=== PATIENT | male | born 1935 | race Caucasian/White ===

== ENCOUNTER 2016-11-12 13:22 | Observation (INO) | payer MEDICARE, OTHER ==
[2016-11-12] MEDS ORDERED: Prochlorperazine 10 MG in Sodium Chloride 0.9% 50 ML IV ONE (13:58)
[2016-11-12] MEDS ORDERED: Sodium Chloride 0.9% 10 ML Syringe FLUSH PRN (13:58)
[2016-11-12] MEDS ORDERED: Sodium Chloride 0.9% 1,000 ML IV SCH ×3 (14:00→17:00)
[2016-11-12] MEDS: Sodium Chloride 0.9% 1,000 ML IV SCH (17:20)
[2016-11-12] MEDS ORDERED: Ondansetron 4 MG/2 ML SDV IV PRN (17:28)
[2016-11-12] MEDS ORDERED: Zolpidem 5 MG Tab PO PRN (17:32)
[2016-11-12] MEDS ORDERED: Diclofenac Sodium 1% Gel 100 GM Tube TOP PRN (17:32)
[2016-11-12] MEDS ORDERED: Acetaminophen 325 MG Tab PO PRN (17:32)
[2016-11-12] MEDS ORDERED: Fluticasone Propionate Nasal Spray 16 GM Bottle NASBOTH PRN (17:32)
[2016-11-12] MEDS ORDERED: Albuterol 8 GM Inhaler INH PRN (17:32)
[2016-11-12] MEDS: Gabapentin 100 MG Cap PO SCH (21:02)
[2016-11-12] MEDS: Montelukast 10 MG Tab PO SCH (21:02)
[2016-11-12] MEDS: atorvaSTATin 20 MG Tab PO SCH (21:08)
[2016-11-12] MEDS: Ipratropium 0.03% Nasal Spray 30 ML Bot NASBOTH SCH (21:08)
[2016-11-13] MEDS: Sodium Chloride 0.9% 1,000 ML IV SCH ×3 (01:25→23:31)
[2016-11-13] MEDS ORDERED: CHERRY PO SCH (09:00)
--- NOTE | 2016-11-13 09:33 | PCM.HP ---
H&P History of Present Illness - General Date of Service: 11/12/16 Admit Problem/Dx: Admission Diagnosis/Problem Admission Diagnosis/Problem Weakness Source of Information: Patient History Limitations: Reports: No Limitations - History of Present Illness Initial Comments - Free Text/Narative: This is an 81-year-old male patient from the [facility] this had 1 day history of dizziness, weakness, nausea and dry heaves. He states he was at home. He lives by himself and he was not able to walk. The ambulance was called and he was brought to the ER. Had a head CT that showed no acute changes. Creatinine was elevated with that's normal for him. Patient denies fevers, chills, nasal congestion, cough, chest pain, abdominal pain. He had a normal bowel movement with little diarrhea at the end. No blood. No dysuria, pyuria or hematuria. left knee Pain Score (Numeric/FACES): 3 - Related Data Allergies/Adverse Reactions: Allergies Allergy/AdvReac Type Severity Reaction Status Date / Time allopurinol Allergy Other Verified 11/12/16 13:42 gabapentin Allergy Itching Verified 02/29/16 23:00 tramadol Allergy Dizziness Verified 02/29/16 23:00 valsartan Allergy Dizziness Verified 11/12/16 13:42 Home Medications: Home Meds Albuterol Sulfate [Proventil Hfa] 2 puff IH Q6H PRN 02/29/16 [History] Diclofenac Sodium [Voltaren 1%] 1 applic TOP BID PRN 02/29/16 [History] Finasteride [Proscar] 5 mg PO DAILY 02/29/16 [History] Fluticasone Propionate [Flonase] 2 sprays NASBOTH DAILY PRN 02/29/16 [History] Ipratropium [Atrovent 0.03% Nasal [place]] 2 sprays NASBOTH TID 02/29/16 [History] Losartan [Cozaar] 25 mg PO DAILY 02/29/16 [History] Montelukast [Singulair] 10 mg PO BEDTIME 02/29/16 [History] Zolpidem [Ambien] 5 mg PO BEDTIME PRN 02/29/16 [History] glipiZIDE [Glucotrol] 2.5 mg PO ACBREAKFAST 12/27/16 [History] Acetaminophen [Tylenol] 650 mg PO Q6H PRN 03/01/16 [History] Aspirin [Ecotrin] 81 mg PO DAILY 03/01/16 [History] Balderas Concentrate Capsule 1 cap PO DAILY 03/01/16 [History] Furosemide [Lasix] 20 mg PO WITHDINNER 03/01/16 [History] Gabapentin [Neurontin] 100 mg PO BID 03/01/16 [History] atorvaSTATin [Lipitor] 20 mg PO BEDTIME 03/01/16 [History] Febuxostat [Uloric] 40 mg PO DAILY 11/12/16 [History] Past Medical History HEENT History: Reports: Allergic Rhinitis, Hard of Hearing, Sinusitis Cardiovascular History: Reports: High Cholesterol, Hypertension Genitourinary History: Reports: Chronic Renal Insuffiency Musculoskeletal History: Reports: Arthritis, Gout Neurological History: Reports: Neuropathy, Peripheral Endocrine/Metabolic History: Reports: Diabetes, Type II, Hyperthyroidism, Obesity/BMI 30+ Hematologic History: Reports: None Oncologic (Cancer) History: Reports: Other (See Below) Other Oncologic History: melanoma Dermatologic History: Reports: Other (See Below) Other Dermatologic History: skin caner - Past Surgical History GI Surgical History: Reports: Cholecystectomy Musculoskeletal Surgical History: Reports: None Dermatological Surgical History: Reports: Skin Graft Social & Family History - Family History Family Medical History: Unobtainable Psychiatric: Reports: None Hematologic: Reports: None - Tobacco Use Smoking Status *Q: Never Smoker Second Hand Smoke Exposure: No - Caffeine Use Caffeine Use: Reports: Coffee Other Caffeine Use: 2 cups of coffee a day - Recreational Drug Use Recreational Drug Use: No - Living Situation & Occupation Living situation: Reports: Single, Alone Occupation: Retired H&P Review of Systems - Review of Systems: Review Of Systems: See Below General: Reports: Weakness, Decreased Appetite HEENT: Reports: No Symptoms Pulmonary: Reports: No Symptoms Cardiovascular: Reports: No Symptoms Gastrointestinal: Reports: Other (Dry heaves) Genitourinary: Reports: No Symptoms Musculoskeletal: Reports: Other (Generalized weakness) Skin: Reports: No Symptoms Psychiatric: Reports: No Symptoms Neurological: Reports: No Symptoms Hematologic/Lymphatic: Reports: No Symptoms Immunologic: Reports: No Symptoms Exam - Exam Exam: See Below - Vital Signs Vital Signs: Last Vital Signs Temp 98.1 F 11/13/16 01:00 Pulse 72 11/13/16 01:00 Resp 17 11/13/16 01:00 BP 145/72 H 11/13/16 01:00 Pulse Ox 94 L 11/13/16 01:00 Weight: 183 lb 12.8 oz - Exam General: Alert, Oriented, Cooperative HEENT: Hearing Intact, Mucosa Moist & [place], TMs Clear Neck: Supple, Trachea Midline Lungs: Clear to Auscultation, Normal Respiratory Effort. No: Crackles, Rales, Rhonchi Cardiovascular: Regular Rate, Regular Rhythm, Normal S1, Normal S2 GI/Abdominal Exam: Normal Bowel Sounds, Soft, Non-Tender, No Organomegaly, No Distention, No Abnormal Bruit, No Mass, Pelvis Stable Back Exam: Normal Inspection, Full Range of Motion, NT Extremities: Normal Inspection, Non-Tender, No Pedal Edema, Other (Bilateral strength normal. Upper and lower extremities.) Skin: Warm, Dry, Intact Neurological: Normal Speech, Normal Tone Neuro Extensive - Mental Status: Alert, Oriented x3 Neuro Extensive - Motor, Sensory, Reflexes: Other (Gait not tested.) Psychiatric: Alert - Patient Data Lab Results Last 24 hrs: Laboratory Results - last 24 hr 11/12/16 11/13/16 11/13/16 Range/Units 17:11 06:25 06:25 WBC 14.2 H (4.5-12.0) X10-3/uL RBC 4.16 L (4.30-5.75) x10(6)uL Hgb 13.3 (11.5-15.5) g/dL Hct 39.3 (30.0-51.3) % MCV 94.5 (80-96) fL MCH 32.0 (27.7-33.6) pg MCHC 33.9 (32.2-35.4) g/dL RDW 12.9 (11.5-15.5) % Plt Count 184 (125-369) X10(3)uL MPV 8.5 (7.4-10.4) fL Neut % (Auto) 58.7 (46-82) % Lymph % (Auto) 27.7 (13-37) % [place] % (Auto) 11.3 (4-12) % Eos % (Auto) 2 (1.0-5.0) % Baso % (Auto) 0 (0-2) % Neut # (Auto) 8.3 (1.6-8.3) # Lymph # (Auto) 3.9 (0.6-5.0) # [place] # (Auto) 1.6 H (0.0-1.3) # Eos # (Auto) 0.3 (0.0-0.8) # Baso # (Auto) 0.1 (0.0-0.2) # Sodium 146 H (135-145) mmol/L Potassium 4.1 (3.5-5.3) mmol/L Chloride 115 H D (100-110) mmol/L Carbon Dioxide 23 (23-29) mmol/L BUN 46 H D (8-23) mg/dL Creatinine 1.9 H (0.6-1.3) mg/dL Est Cr Clr Drug Dosing 25.96 mL/min Estimated GFR (MDRD) 34 L (>60) BUN/Creatinine Ratio 24.2 H (9-20) Glucose 100 (80-116) mg/dL Calcium 8.9 (8.6-10.2) mg/dL Total Bilirubin 1.1 (0.1-1.3) mg/dL AST 23 D (5-27) IU/L ALT 26 D (14-26) IU/L Alkaline Phosphatase 55 L (56-112) IU/L Troponin I (0.02-0.06) NG/ML Total Protein 5.9 L (6.0-8.0) g/dL Albumin 3.2 (3.2-4.6) g/dL Globulin 2.7 g/dL Albumin/Globulin Ratio 1.2 Urine Color Yellow (YELLOW) Urine Appearance Clear (CLEAR) Urine pH 5.0 (5.0-6.5) Ur Specific [place] 1.020 (1.010-1.025) Urine Protein Negative (NEGATIVE) mg/dL Urine Glucose (UA) 250 H (NEGATIVE) mg/dL Urine Ketones Negative (NEGATIVE) mg/dL Urine Occult Blood Negative (NEGATIVE) Urine Nitrite Negative (NEGATIVE) Urine Bilirubin Negative (NEGATIVE) Urine Urobilinogen Normal (NEGATIVE) mg/dL Ur Leukocyte Esterase Negative (NEGATIVE) Urine RBC 0-5 (0) Urine WBC 0-5 (0) Ur Squamous Epith Cells Rare (NS,R,O) Urine Bacteria Few H (NS) 11/13/16 Range/Units 06:25 WBC (4.5-12.0) X10-3/uL RBC (4.30-5.75) x10(6)uL Hgb (11.5-15.5) g/dL Hct (30.0-51.3) % MCV (80-96) fL MCH (27.7-33.6) pg MCHC (32.2-35.4) g/dL RDW (11.5-15.5) % Plt Count (125-369) X10(3)uL MPV (7.4-10.4) fL Neut % (Auto) (46-82) % Lymph % (Auto) (13-37) % [place] % (Auto) (4-12) % Eos % (Auto) (1.0-5.0) % Baso % (Auto) (0-2) % Neut # (Auto) (1.6-8.3) # Lymph # (Auto) (0.6-5.0) # [place] # (Auto) (0.0-1.3) # Eos # (Auto) (0.0-0.8) # Baso # (Auto) (0.0-0.2) # Sodium (135-145) mmol/L Potassium (3.5-5.3) mmol/L Chloride (100-110) mmol/L Carbon Dioxide (23-29) mmol/L BUN (8-23) mg/dL Creatinine (0.6-1.3) mg/dL Est Cr Clr Drug Dosing mL/min Estimated GFR (MDRD) (>60) BUN/Creatinine Ratio (9-20) Glucose (80-116) mg/dL Calcium (8.6-10.2) mg/dL Total Bilirubin (0.1-1.3) mg/dL AST (5-27) IU/L ALT (14-26) IU/L Alkaline Phosphatase (56-112) IU/L Troponin I 0.04 (0.02-0.06) NG/ML Total Protein (6.0-8.0) g/dL Albumin (3.2-4.6) g/dL Globulin g/dL Albumin/Globulin Ratio Urine Color (YELLOW) Urine Appearance (CLEAR) Urine pH (5.0-6.5) Ur Specific [place] (1.010-1.025) Urine Protein (NEGATIVE) mg/dL Urine Glucose (UA) (NEGATIVE) mg/dL Urine Ketones (NEGATIVE) mg/dL Urine Occult Blood (NEGATIVE) Urine Nitrite (NEGATIVE) Urine Bilirubin (NEGATIVE) Urine Urobilinogen (NEGATIVE) mg/dL Ur Leukocyte Esterase (NEGATIVE) Urine RBC (0) Urine WBC (0) Ur Squamous Epith Cells (NS,R,O) Urine Bacteria (NS) Result Diagrams: 11/13/16 06:25 11/13/16 06:25 *Q Meaningful Use (ADM) - VTE *Q VTE Criteria *Q: - Stroke *Q Stroke Criteria *Q: - AMI *Q AMI Criteria *Q: - Problem List (1) Dizziness SNOMED Code(s): 643960529, 976009203 ICD Code: R42 - DIZZINESS AND GIDDINESS Status: Acute Current Visit: Yes (2) Nausea & vomiting SNOMED Code(s): 19474776 ICD Code: R11.2 - NAUSEA WITH VOMITING, UNSPECIFIED Status: Resolved Current Visit: No Qualifiers: (3) Weakness SNOMED Code(s): 92835633 ICD Code: R53.1 - WEAKNESS Status: Resolved Current Visit: No Problem List Initiated/Reviewed/Updated: Yes Orders Last 24hrs: Active Orders 24 hr Category Date Time Status Accu Check [Blood Glucose Check, Bedside] [RC] BIDAC Care 11/12/16 17:34 Active Ambulate [RC] 09,13,17,21 Care 11/13/16 07:49 Active Height and Weight [RC] 07 Care 11/12/16 17:28 Active Intake and Output [RC] 06,14,22 Care 11/12/16 17:29 Active May Shower [RC] ASDIRECTED Care 11/12/16 17:28 Active Oxygen Therapy [RC] PRN Care 11/12/16 17:28 Active Up With Assistance [RC] ASDIRECTED Care 11/12/16 17:28 Active Vital Signs [RC] Q4H Care 11/12/16 17:28 Active Regular Diet [DIET] Diet 11/13/16 Lunch Active Acetaminophen [Tylenol] Med 11/12/16 17:32 Active 650 mg PO Q6H PRN Albuterol [Ventolin HFA] Med 11/12/16 17:32 Active 0 gm INH Q6H PRN Aspirin [Halfprin] Med 11/13/16 09:00 Active 81 mg PO DAILY Balderas Concentrate Capsule Med 11/13/16 09:00 Pending 1 cap PO DAILY Diclofenac Sodium [Voltaren 1% Gel] Med 11/12/16 17:32 Active 0 gm TOP BID PRN Febuxostat [Uloric] Med 11/13/16 09:00 Active 40 mg PO DAILY Finasteride [Proscar] Med 11/13/16 09:00 Active 5 mg PO DAILY Fluticasone Propionate [Flonase] Med 11/12/16 17:32 Active 0 gm NASBOTH DAILY PRN Gabapentin [Neurontin] Med 11/12/16 21:00 Active 100 mg PO BID Ipratropium [Atrovent 0.03% Nasal [place]] Med 11/12/16 21:00 Active 0 ml NASBOTH TID Losartan [Cozaar] Med 11/13/16 09:00 Active 25 mg PO DAILY Montelukast [Singulair] Med 11/12/16 21:00 Active 10 mg PO BEDTIME Ondansetron [Zofran] Med 11/12/16 17:28 Active 4 mg IV Q4H PRN Zolpidem [Ambien] Med 11/12/16 17:32 Active 5 mg PO BEDTIME PRN atorvaSTATin [Lipitor] Med 11/12/16 21:00 Active 20 mg PO BEDTIME Sequential Compression Device [OM.PC] Per Unit Routine Oth 11/12/16 17:29 Ordered Resuscitation Status Routine Resus Stat 11/12/16 17:28 Ordered Medication Orders Acetaminophen (Tylenol) 650 mg PO Q6H PRN PRN Reason: Pain/Fever Albuterol (Ventolin Hfa) 0 gm INH Q6H PRN PRN Reason: Shortness of Breath Aspirin (Halfprin) 81 mg PO DAILY [facility] Atorvastatin Calcium (Lipitor) 20 mg PO BEDTIME [facility] Last Admin: 11/12/16 21:08 Dose: Not Given Diclofenac Sodium (Voltaren 1% Gel) 0 gm TOP BID PRN PRN Reason: Pain Febuxostat (Uloric) 40 mg PO DAILY [facility] Finasteride (Proscar) 5 mg PO DAILY [facility] Fluticasone Propionate (Flonase) 0 gm NASBOTH DAILY PRN PRN Reason: Congestion Gabapentin (Neurontin) 100 mg PO BID [facility] Last Admin: 11/12/16 21:02 Dose: 100 mg Sodium Chloride (Normal Saline) 1,000 mls @ 500 mls/hr IV ASDIRECTED [facility] Last Admin: 11/12/16 14:17 Dose: 500 mls/hr Sodium Chloride (Normal Saline) 1,000 mls @ 70 mls/hr IV ASDIRECTED [facility] Last Admin: 11/13/16 09:18 Dose: 125 mls/hr Infusion: 11/13/16 09:18 Dose: 125 mls/hr Admin: 11/13/16 01:25 Dose: 125 mls/hr Infusion: 11/13/16 01:20 Dose: 125 mls/hr Admin: 11/12/16 17:20 Dose: 125 mls/hr Ipratropium [place] (Atrovent 0.03% Nasal [place]) 0 ml NASBOTH TID [facility] Last Admin: 11/12/16 21:08 Dose: Not Given Losartan Potassium (Cozaar) 25 mg PO DAILY [facility] Montelukast Sodium (Singulair) 10 mg PO BEDTIME [facility] Last Admin: 11/12/16 21:02 Dose: 10 mg Non-Formulary Medication (Balderas Concentrate Capsule) 1 cap PO DAILY [facility] Ondansetron HCl (Zofran) 4 mg IV Q4H PRN PRN Reason: Nausea/Vomiting Sodium Chloride (Saline Flush) 10 ml FLUSH ASDIRECTED PRN PRN Reason: Keep Vein Open Last Admin: 11/12/16 14:08 Dose: 10 ml Zolpidem Tartrate (Ambien) 5 mg PO BEDTIME PRN PRN Reason: Sleep Assessment/Plan Comment:: 1. Admit for observation. 2. He was given a liter of normal saline in the ER and I will continue 125 mL an hour. 3. Discussed CODE STATUS he wants to be a DNR/DNI. 4. Clear liquids. 5. Up with assist. 6. Repeat labs in the a.m.
--- NOTE | 2016-11-13 09:35 | PCM.PN ---
- General Info Date of Service: 11/13/16 Admission Dx/Problem (Free Text): Patient feels better today thinks 50% improved. He denies nausea, diarrhea, dizziness. He still feels weak. - Patient Data Vitals - Most Recent: Last Vital Signs Temp 98.1 F 11/13/16 01:00 Pulse 72 11/13/16 01:00 Resp 17 11/13/16 01:00 BP 145/72 H 11/13/16 01:00 Pulse Ox 94 L 11/13/16 01:00 Weight - Most Recent: 183 lb 12.8 oz I&O - Last 24 Hours: Intake & Output 11/12/16 11/13/16 11/13/16 22:59 06:59 14:59 Intake Total 1504 1006 Output Total 375 500 Balance 1129 506 Lab Results Last 24 Hours: Laboratory Results - last 24 hr 11/12/16 11/13/16 11/13/16 Range/Units 17:11 06:25 06:25 WBC 14.2 H (4.5-12.0) X10-3/uL RBC 4.16 L (4.30-5.75) x10(6)uL Hgb 13.3 (11.5-15.5) g/dL Hct 39.3 (30.0-51.3) % MCV 94.5 (80-96) fL MCH 32.0 (27.7-33.6) pg MCHC 33.9 (32.2-35.4) g/dL RDW 12.9 (11.5-15.5) % Plt Count 184 (125-369) X10(3)uL MPV 8.5 (7.4-10.4) fL Neut % (Auto) 58.7 (46-82) % Lymph % (Auto) 27.7 (13-37) % [place] % (Auto) 11.3 (4-12) % Eos % (Auto) 2 (1.0-5.0) % Baso % (Auto) 0 (0-2) % Neut # (Auto) 8.3 (1.6-8.3) # Lymph # (Auto) 3.9 (0.6-5.0) # [place] # (Auto) 1.6 H (0.0-1.3) # Eos # (Auto) 0.3 (0.0-0.8) # Baso # (Auto) 0.1 (0.0-0.2) # Sodium 146 H (135-145) mmol/L Potassium 4.1 (3.5-5.3) mmol/L Chloride 115 H D (100-110) mmol/L Carbon Dioxide 23 (23-29) mmol/L BUN 46 H D (8-23) mg/dL Creatinine 1.9 H (0.6-1.3) mg/dL Est Cr Clr Drug Dosing 25.96 mL/min Estimated GFR (MDRD) 34 L (>60) BUN/Creatinine Ratio 24.2 H (9-20) Glucose 100 (80-116) mg/dL Calcium 8.9 (8.6-10.2) mg/dL Total Bilirubin 1.1 (0.1-1.3) mg/dL AST 23 D (5-27) IU/L ALT 26 D (14-26) IU/L Alkaline Phosphatase 55 L (56-112) IU/L Troponin I (0.02-0.06) NG/ML Total Protein 5.9 L (6.0-8.0) g/dL Albumin 3.2 (3.2-4.6) g/dL Globulin 2.7 g/dL Albumin/Globulin Ratio 1.2 Urine Color Yellow (YELLOW) Urine Appearance Clear (CLEAR) Urine pH 5.0 (5.0-6.5) Ur Specific [place] 1.020 (1.010-1.025) Urine Protein Negative (NEGATIVE) mg/dL Urine Glucose (UA) 250 H (NEGATIVE) mg/dL Urine Ketones Negative (NEGATIVE) mg/dL Urine Occult Blood Negative (NEGATIVE) Urine Nitrite Negative (NEGATIVE) Urine Bilirubin Negative (NEGATIVE) Urine Urobilinogen Normal (NEGATIVE) mg/dL Ur Leukocyte Esterase Negative (NEGATIVE) Urine RBC 0-5 (0) Urine WBC 0-5 (0) Ur Squamous Epith Cells Rare (NS,R,O) Urine Bacteria Few H (NS) 11/13/16 Range/Units 06:25 WBC (4.5-12.0) X10-3/uL RBC (4.30-5.75) x10(6)uL Hgb (11.5-15.5) g/dL Hct (30.0-51.3) % MCV (80-96) fL MCH (27.7-33.6) pg MCHC (32.2-35.4) g/dL RDW (11.5-15.5) % Plt Count (125-369) X10(3)uL MPV (7.4-10.4) fL Neut % (Auto) (46-82) % Lymph % (Auto) (13-37) % [place] % (Auto) (4-12) % Eos % (Auto) (1.0-5.0) % Baso % (Auto) (0-2) % Neut # (Auto) (1.6-8.3) # Lymph # (Auto) (0.6-5.0) # [place] # (Auto) (0.0-1.3) # Eos # (Auto) (0.0-0.8) # Baso # (Auto) (0.0-0.2) # Sodium (135-145) mmol/L Potassium (3.5-5.3) mmol/L Chloride (100-110) mmol/L Carbon Dioxide (23-29) mmol/L BUN (8-23) mg/dL Creatinine (0.6-1.3) mg/dL Est Cr Clr Drug Dosing mL/min Estimated GFR (MDRD) (>60) BUN/Creatinine Ratio (9-20) Glucose (80-116) mg/dL Calcium (8.6-10.2) mg/dL Total Bilirubin (0.1-1.3) mg/dL AST (5-27) IU/L ALT (14-26) IU/L Alkaline Phosphatase (56-112) IU/L Troponin I 0.04 (0.02-0.06) NG/ML Total Protein (6.0-8.0) g/dL Albumin (3.2-4.6) g/dL Globulin g/dL Albumin/Globulin Ratio Urine Color (YELLOW) Urine Appearance (CLEAR) Urine pH (5.0-6.5) Ur Specific [place] (1.010-1.025) Urine Protein (NEGATIVE) mg/dL Urine Glucose (UA) (NEGATIVE) mg/dL Urine Ketones (NEGATIVE) mg/dL Urine Occult Blood (NEGATIVE) Urine Nitrite (NEGATIVE) Urine Bilirubin (NEGATIVE) Urine Urobilinogen (NEGATIVE) mg/dL Ur Leukocyte Esterase (NEGATIVE) Urine RBC (0) Urine WBC (0) Ur Squamous Epith Cells (NS,R,O) Urine Bacteria (NS) Med Orders - Current: Current Medications Acetaminophen (Tylenol) 650 mg PO Q6H PRN PRN Reason: Pain/Fever Albuterol (Ventolin Hfa) 0 gm INH Q6H PRN PRN Reason: Shortness of Breath Aspirin (Halfprin) 81 mg PO DAILY [facility] Atorvastatin Calcium (Lipitor) 20 mg PO BEDTIME [facility] Last Admin: 11/12/16 21:08 Dose: Not Given Diclofenac Sodium (Voltaren 1% Gel) 0 gm TOP BID PRN PRN Reason: Pain Febuxostat (Uloric) 40 mg PO DAILY [facility] Finasteride (Proscar) 5 mg PO DAILY [facility] Fluticasone Propionate (Flonase) 0 gm NASBOTH DAILY PRN PRN Reason: Congestion Gabapentin (Neurontin) 100 mg PO BID [facility] Last Admin: 11/12/16 21:02 Dose: 100 mg Sodium Chloride (Normal Saline) 1,000 mls @ 500 mls/hr IV ASDIRECTED [facility] Last Admin: 11/12/16 14:17 Dose: 500 mls/hr Sodium Chloride (Normal Saline) 1,000 mls @ 70 mls/hr IV ASDIRECTED [facility] Last Admin: 11/13/16 09:18 Dose: 125 mls/hr Ipratropium [place] (Atrovent 0.03% Nasal [place]) 0 ml NASBOTH TID [facility] Last Admin: 11/12/16 21:08 Dose: Not Given Losartan Potassium (Cozaar) 25 mg PO DAILY [facility] Montelukast Sodium (Singulair) 10 mg PO BEDTIME [facility] Last Admin: 11/12/16 21:02 Dose: 10 mg Non-Formulary Medication (Balderas Concentrate Capsule) 1 cap PO DAILY [facility] Ondansetron HCl (Zofran) 4 mg IV Q4H PRN PRN Reason: Nausea/Vomiting Sodium Chloride (Saline Flush) 10 ml FLUSH ASDIRECTED PRN PRN Reason: Keep Vein Open Last Admin: 11/12/16 14:08 Dose: 10 ml Zolpidem Tartrate (Ambien) 5 mg PO BEDTIME PRN PRN Reason: Sleep Discontinued Medications Prochlorperazine Edisylate 10 (mg/ Sodium Chloride) 52 mls @ 150 mls/hr IV ONETIME ONE Stop: 11/12/16 14:18 Last Admin: 11/12/16 14:24 Dose: 150 mls/hr Sodium Chloride (Normal Saline) 1,000 mls @ 500 mls/hr IV ASDIRECTED [facility] Sodium Chloride (Normal Saline) 1,000 mls @ 125 mls/hr IV ASDIRECTED [facility] - Exam General: Alert, Oriented, Cooperative Lungs: Clear to Auscultation, Normal Respiratory Effort Cardiovascular: Regular Rate, Regular Rhythm Back Exam: Normal Inspection, Full Range of Motion - Problem List & Annotations (1) Dizziness SNOMED Code(s): 206394584, 739351994 Code(s): R42 - DIZZINESS AND GIDDINESS Status: Acute Current Visit: Yes (2) Nausea & vomiting SNOMED Code(s): 45417073 Code(s): R11.2 - NAUSEA WITH VOMITING, UNSPECIFIED Status: Resolved Current Visit: No Qualifiers: (3) Weakness SNOMED Code(s): 53094569 Code(s): R53.1 - WEAKNESS Status: Resolved Current Visit: No - Problem List Review Problem List Initiated/Reviewed/Updated: Yes - My Orders Last 24 Hours: My Active Orders 11/12/16 17:28 Height and Weight [RC] 07 July Shower [RC] ASDIRECTED Oxygen Therapy [RC] PRN Up With Assistance [RC] ASDIRECTED Vital Signs [RC] Q4H Ondansetron [Zofran] 4 mg IV Q4H PRN Resuscitation Status Routine 11/12/16 17:29 Intake and Output [RC] 06,14,22 Sequential Compression Device [OM.PC] Per Unit Routine 11/12/16 17:32 Acetaminophen [Tylenol] 650 mg PO Q6H PRN Albuterol [Ventolin HFA] 0 gm INH Q6H PRN Diclofenac Sodium [Voltaren 1% Gel] 0 gm TOP BID PRN Fluticasone Propionate [Flonase] 0 gm NASBOTH DAILY PRN Zolpidem [Ambien] 5 mg PO BEDTIME PRN 11/12/16 17:34 Accu Check [Blood Glucose Check, Bedside] [RC] BIDAC 11/12/16 21:00 Gabapentin [Neurontin] 100 mg PO BID Ipratropium [Atrovent 0.03% Nasal [place]] 0 ml NASBOTH TID Montelukast [Singulair] 10 mg PO BEDTIME atorvaSTATin [Lipitor] 20 mg PO BEDTIME 11/13/16 07:49 Ambulate [RC] ,,,11/13/16 09:00 Aspirin [Halfprin] 81 mg PO DAILY [facility] Concentrate Capsule 1 cap PO DAILY Febuxostat [Uloric] 40 mg PO DAILY Finasteride [Proscar] 5 mg PO DAILY Losartan [Cozaar] 25 mg PO DAILY 11/13/16 Lunch Regular Diet [DIET] - Plan Plan:: 1. Advance diet to regular diet. 2. Decrease IV fluids to 70 mL an hour. 3. Ambulate and assess safety with ambulation and coordination.
[2016-11-13] MEDS: Losartan 25 MG Tab PO SCH (10:36)
[2016-11-13] MEDS: Ipratropium 0.03% Nasal Spray 30 ML Bot NASBOTH SCH ×3 (10:36→20:04)
[2016-11-13] MEDS: Finasteride 5 MG Tab PO SCH (10:37)
[2016-11-13] MEDS: Gabapentin 100 MG Cap PO SCH ×2 (10:37→20:04)
[2016-11-13] MEDS: Febuxostat 40 MG Tab PO SCH (10:37)
[2016-11-13] MEDS: Aspirin 81 MG Tab.EC PO SCH (10:37)
--- NOTE | 2016-11-13 13:07 | CR ---
INDICATION: Vomiting, weak. CHEST: PA and lateral views of the chest were obtained and revealed the heart to be normal in size and shape. The aorta is tortuous and calcified in the arch and descending portion. Diaphragm leaf is somewhat flattened with prominent AP diameter, suggesting COPD along with interdigitation of diaphragm leaf on the right. An active infiltrate or effusion was not identified. In the mid thoracic spine there is flowing hyperostotic change anteriorly, suggesting the possibility of DISH. IMPRESSION: 1. No definite acute process. 2. COPD. 3. ASD aorta. 4. 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 MTDD
[2016-11-13] MEDS ORDERED: Enoxaparin 30 MG/0.3 ML Syringe SUBCUT SCH (18:00)
[2016-11-13] MEDS: atorvaSTATin 20 MG Tab PO SCH (20:04)
[2016-11-13] MEDS: Montelukast 10 MG Tab PO SCH (20:04)
--- NOTE | 2016-11-14 08:17 | PCM.PN ---
- General Info Date of Service: 11/14/16 Admission Dx/Problem (Free Text): Patient without complaints. States he has no nausea, vomiting, dry heaving, dizziness or weakness. He states he is eating fine now. - Patient Data Vitals - Most Recent: Last Vital Signs Temp 98.0 F 11/14/16 00:00 Pulse 68 11/14/16 00:00 Resp 17 11/14/16 00:00 BP 122/63 11/14/16 00:00 Pulse Ox 95 11/14/16 00:00 Weight - Most Recent: 183 lb 12.8 oz I&O - Last 24 Hours: Intake & Output 11/13/16 11/14/16 11/14/16 22:59 06:59 14:59 Intake Total 1282 660 Output Total 300 500 Balance 982 160 Lab Results Last 24 Hours: Laboratory Results - last 24 hr 11/13/16 11/14/16 Range/Units 16:36 06:34 POC Glucose 85 87 (80-116) mg/dL Med Orders - Current: Current Medications Acetaminophen (Tylenol) 650 mg PO Q6H PRN PRN Reason: Pain/Fever Albuterol (Ventolin Hfa) 0 gm INH Q6H PRN PRN Reason: Shortness of Breath Aspirin (Halfprin) 81 mg PO DAILY [facility] Last Admin: 11/13/16 10:37 Dose: Not Given Atorvastatin Calcium (Lipitor) 20 mg PO BEDTIME [facility] Last Admin: 11/13/16 20:04 Dose: Not Given Diclofenac Sodium (Voltaren 1% Gel) 0 gm TOP BID PRN PRN Reason: Pain Enoxaparin Sodium (Lovenox) 30 mg SUBCUT Q24H [facility] Last Admin: 11/13/16 20:02 Dose: 30 mg Febuxostat (Uloric) 40 mg PO DAILY [facility] Last Admin: 11/13/16 10:37 Dose: Not Given Finasteride (Proscar) 5 mg PO DAILY [facility] Last Admin: 11/13/16 10:37 Dose: Not Given Fluticasone Propionate (Flonase) 0 gm NASBOTH DAILY PRN PRN Reason: Congestion Gabapentin (Neurontin) 100 mg PO BID [facility] Last Admin: 11/13/16 20:04 Dose: Not Given Sodium Chloride (Normal Saline) 1,000 mls @ 500 mls/hr IV ASDIRECTED [facility] Last Admin: 11/12/16 14:17 Dose: 500 mls/hr Sodium Chloride (Normal Saline) 1,000 mls @ 70 mls/hr IV ASDIRECTED [facility] Last Admin: 11/13/16 23:31 Dose: 70 mls/hr Ipratropium [place] (Atrovent 0.03% Nasal [place]) 0 ml NASBOTH TID [facility] Last Admin: 11/13/16 20:04 Dose: Not Given Losartan Potassium (Cozaar) 25 mg PO DAILY [facility] Last Admin: 11/13/16 10:36 Dose: Not Given Montelukast Sodium (Singulair) 10 mg PO BEDTIME [facility] Last Admin: 11/13/16 20:04 Dose: Not Given Non-Formulary Medication ([place] Concentrate Capsule) 1 cap PO DAILY [facility] Ondansetron HCl (Zofran) 4 mg IV Q4H PRN PRN Reason: Nausea/Vomiting Sodium Chloride (Saline Flush) 10 ml FLUSH ASDIRECTED PRN PRN Reason: Keep Vein Open Last Admin: 11/12/16 14:08 Dose: 10 ml Zolpidem Tartrate (Ambien) 5 mg PO BEDTIME PRN PRN Reason: Sleep Last Admin: 11/14/16 01:52 Dose: 5 mg Discontinued Medications Prochlorperazine Edisylate 10 (mg/ Sodium Chloride) 52 mls @ 150 mls/hr IV ONETIME ONE Stop: 11/12/16 14:18 Last Admin: 11/12/16 14:24 Dose: 150 mls/hr Sodium Chloride (Normal Saline) 1,000 mls @ 500 mls/hr IV ASDIRECTED [facility] Sodium Chloride (Normal Saline) 1,000 mls @ 125 mls/hr IV ASDIRECTED [facility] - Exam General: Alert, Oriented, Cooperative Neck: Supple Lungs: Clear to Auscultation, Normal Respiratory Effort Cardiovascular: Regular Rate, Regular Rhythm, No Murmurs Extremities: No Pedal Edema Skin: Warm, Intact Psy/Mental Status: Alert, Normal Affect, Normal Mood - Problem List & Annotations (1) Weakness SNOMED Code(s): 53129957 Code(s): R53.1 - WEAKNESS Status: Resolved Current Visit: No (2) Gastroenteritis SNOMED Code(s): 01177290 Code(s): K52.9 - NONINFECTIVE GASTROENTERITIS AND COLITIS, UNSPECIFIED Status: Acute Current Visit: Yes (3) Dehydration SNOMED Code(s): 40272481 Code(s): E86.0 - DEHYDRATION Status: Acute Current Visit: Yes - Problem List Review Problem List Initiated/Reviewed/Updated: Yes - My Orders Last 24 Hours: My Active Orders 11/13/16 07:49 Ambulate [RC] ,,,11/13/16 09:00 Aspirin [Halfprin] 81 mg PO DAILY [place] Concentrate Capsule 1 cap PO DAILY Febuxostat [Uloric] 40 mg PO DAILY Finasteride [Proscar] 5 mg PO DAILY Losartan [Cozaar] 25 mg PO DAILY 11/13/16 18:00 Enoxaparin [Lovenox] 30 mg SUBCUT Q24H 11/13/16 Lunch Regular Diet [DIET] - Plan Plan:: 1. Discharge to home with home health. 2. Continue same home medications.
--- NOTE | 2016-11-14 08:22 | PCM.DCSUM1 ---
Discharge Summary - Hospital Course Free Text/Narrative:: Hospital course-patient was admitted for fluid rehydration. The first night we started clear liquids and he tolerated it. By the next morning his dizziness, nausea and dry heaving was gone. We advanced his diet. He states he was still weak. He has a little bit of white count. But no signs of infection other than possibly gastroenteritis. By day 2 he was completely resolved back to his normal strength. Eating and drinking. We will discharge to home with [facility]. Brief History: This is an 81-year-old male patient from the [facility] [place] this had 1 day history of dizziness, weakness, nausea and dry heaves. He states he was at home. He lives by himself and he was not able to walk. The ambulance was called and he was brought to the ER. Had a head CT that showed no acute changes. Creatinine was elevated with that's normal for him. Patient denies fevers, chills, nasal congestion, cough, chest pain, abdominal pain. He had a normal bowel movement with little diarrhea at the end. No blood. No dysuria, pyuria or hematuria. - Discharge Data Discharge Date: 11/14/16 Discharge Disposition: Home, [facility] 06 Condition: Good - Discharge Diagnosis/Problem(s) (1) Weakness SNOMED Code(s): 44445530 ICD Code: R53.1 - WEAKNESS Status: Resolved Current Visit: No (2) Gastroenteritis SNOMED Code(s): 18355800 ICD Code: K52.9 - NONINFECTIVE GASTROENTERITIS AND COLITIS, UNSPECIFIED Status: Acute Current Visit: Yes (3) Dehydration SNOMED Code(s): 10902947 ICD Code: E86.0 - DEHYDRATION Status: Acute Current Visit: Yes - Patient Instructions Diet: Regular Diet as Tolerated Activity: As Tolerated Driving: Do Not Drive Showering/Bathing: May Shower Notify Provider of: Fever, Increased Pain, Nausea and/or Vomiting Other/Special Instructions: 1. [facility] for home safety, med management, disease teaching. 2. Recheck with Dr. Gutierrez 7-10 days. - Discharge Plan Home Medications: Home Meds Albuterol Sulfate [Proventil Hfa] 2 puff IH Q6H PRN 02/29/16 [History] Diclofenac Sodium [Voltaren 1% Gel] 1 applic TOP BID PRN 12/27/16 [History] Finasteride [Proscar] 5 mg PO DAILY 02/29/16 [History] Fluticasone Propionate [Flonase] 2 sprays NASBOTH DAILY PRN 02/29/16 [History] Ipratropium [Atrovent 0.03% Nasal [place]] 2 sprays NASBOTH TID 02/29/16 [History] Losartan [Cozaar] 25 mg PO DAILY 02/29/16 [History] Montelukast [Singulair] 10 mg PO BEDTIME 02/29/16 [History] Zolpidem [Ambien] 5 mg PO BEDTIME PRN 02/29/16 [History] glipiZIDE [Glucotrol] 2.5 mg PO ACBREAKFAST 02/29/16 [History] Acetaminophen [Tylenol] 650 mg PO Q6H PRN 03/01/16 [History] Aspirin [Ecotrin] 81 mg PO DAILY 03/01/16 [History] Balderas Concentrate Capsule 1 cap PO DAILY 03/01/16 [History] Furosemide [Lasix] 20 mg PO WITHDINNER 03/01/16 [History] Gabapentin [Neurontin] 100 mg PO BID 03/01/16 [History] atorvaSTATin [Lipitor] 20 mg PO BEDTIME 03/01/16 [History] Febuxostat [Uloric] 40 mg PO DAILY 11/12/16 [History] Forms: ED Department Discharge Referrals: Randy Gutierrez MD [Primary Care Provider] - - Discharge Summary/Plan Comment DC Time >30 min.: No - Patient Data Vitals - Most Recent: Last Vital Signs Temp 98.0 F 11/14/16 00:00 Pulse 68 11/14/16 00:00 Resp 11/14/16 00:00 BP 122/63 11/14/16 00:00 Pulse Ox 95 11/14/16 00:00 Weight - Most Recent: 183 lb 12.8 oz I&O - Last 24 hours: Intake & Output 11/13/16 11/14/16 11/14/16 22:59 06:59 14:59 Intake Total 1282 660 Output Total 300 500 Balance 982 160 Lab Results - Last 24 hrs: Laboratory Results - last 24 hr 11/13/16 11/14/16 Range/Units 16:36 06:34 POC Glucose 85 87 (80-116) mg/dL Med Orders - Current: Current Medications Acetaminophen (Tylenol) 650 mg PO Q6H PRN PRN Reason: Pain/Fever Albuterol (Ventolin Hfa) 0 gm INH Q6H PRN PRN Reason: Shortness of Breath Aspirin (Halfprin) 81 mg PO DAILY [facility] Last Admin: 11/13/16 10:37 Dose: Not Given Atorvastatin Calcium (Lipitor) 20 mg PO BEDTIME [facility] Last Admin: 11/13/16 20:04 Dose: Not Given Diclofenac Sodium (Voltaren 1% Gel) 0 gm TOP BID PRN PRN Reason: Pain Enoxaparin Sodium (Lovenox) 30 mg SUBCUT Q24H [facility] Last Admin: 11/13/16 20:02 Dose: 30 mg Febuxostat (Uloric) 40 mg PO DAILY [facility] Last Admin: 11/13/16 10:37 Dose: Not Given Finasteride (Proscar) 5 mg PO DAILY [facility] Last Admin: 11/13/16 10:37 Dose: Not Given Fluticasone Propionate (Flonase) 0 gm NASBOTH DAILY PRN PRN Reason: Congestion Gabapentin (Neurontin) 100 mg PO BID [facility] Last Admin: 11/13/16 20:04 Dose: Not Given Sodium Chloride (Normal Saline) 1,000 mls @ 500 mls/hr IV ASDIRECTED [facility] Last Admin: 11/12/16 14:17 Dose: 500 mls/hr Sodium Chloride (Normal Saline) 1,000 mls @ 70 mls/hr IV ASDIRECTED [facility] Last Admin: 11/13/16 23:31 Dose: 70 mls/hr Ipratropium [place] (Atrovent 0.03% Nasal [place]) 0 ml NASBOTH TID [facility] Last Admin: 11/13/16 20:04 Dose: Not Given Losartan Potassium (Cozaar) 25 mg PO DAILY [facility] Last Admin: 11/13/16 10:36 Dose: Not Given Montelukast Sodium (Singulair) 10 mg PO BEDTIME [facility] Last Admin: 11/13/16 20:04 Dose: Not Given Non-Formulary Medication (Balderas Concentrate Capsule) 1 cap PO DAILY [facility] Ondansetron HCl (Zofran) 4 mg IV Q4H PRN PRN Reason: Nausea/Vomiting Sodium Chloride (Saline Flush) 10 ml FLUSH ASDIRECTED PRN PRN Reason: Keep Vein Open Last Admin: 11/12/16 14:08 Dose: 10 ml Zolpidem Tartrate (Ambien) 5 mg PO BEDTIME PRN PRN Reason: Sleep Last Admin: 11/14/16 01:52 Dose: 5 mg Discontinued Medications Prochlorperazine Edisylate 10 (mg/ Sodium Chloride) 52 mls @ 150 mls/hr IV ONETIME ONE Stop: 11/12/16 14:18 Last Admin: 11/12/16 14:24 Dose: 150 mls/hr Sodium Chloride (Normal Saline) 1,000 mls @ 500 mls/hr IV ASDIRECTED [facility] Sodium Chloride (Normal Saline) 1,000 mls @ 125 mls/hr IV ASDIRECTED [facility] *Q Meaningful Use (DIS) - VTE *Q VTE Criteria *Q: - Stroke *Q Stroke Criteria *Q: - AMI *Q AMI Criteria *Q:
[2016-11-14 09:28] VITALS: BP 116/58
[2016-11-14] MEDS: Ipratropium 0.03% Nasal Spray 30 ML Bot NASBOTH SCH (09:30)
[2016-11-14] MEDS: Losartan 25 MG Tab PO SCH (09:31)
[2016-11-14] MEDS: Aspirin 81 MG Tab.EC PO SCH (09:36)
[2016-11-14] MEDS: Gabapentin 100 MG Cap PO SCH (09:37)
[2016-11-14] MEDS: Finasteride 5 MG Tab PO SCH (09:39)
[2016-11-14] MEDS: Febuxostat 40 MG Tab PO SCH (09:39)
--- NOTE | 2016-11-14 16:32 | ER ---
DATE SEEN: 11/12/2016 CHIEF COMPLAINT: Dizziness. HISTORY OF PRESENT ILLNESS: An 81-year-old male from [place]. He came in by ambulance complaining of vomiting, nausea, dizziness. The symptoms started this morning. He has no headache. He feels weak and dizziness is described as a spinning sensation, especially when he gets up. PAST MEDICAL HISTORY: Type 2 diabetes, chronic kidney disease, hyperlipidemia, and CHF. MEDICATIONS: Please see the electronic record. SOCIAL HISTORY: Lives alone. PHYSICAL EXAMINATION: GENERAL: He is a nontoxic male. He is afebrile. VITAL SIGNS: His blood pressure is 150/65, temperature is 97.2. ENT: Ears, nose, and throat negative. HEAD: Normal size. NECK: Supple. CHEST: Clear. CARDIOVASCULAR: Normal with systolic murmur. EXTREMITIES: Nonpitting edema. LABORATORY DATA: Creatinine is 2.3, BUN 56, white cell count is 12.9. Troponin is negative. CT head is pending. IMPRESSION: Dizziness. PLAN: EKG was done. The patient was given 1 L of normal saline. He still feels unstable and dizzy. I called Dr. Gutierrez for an admission. TIME SEEN: 1430 hours. /[id number] MARYAM/ROBIN
== END 2016-11-14 10:50 | disposition home health service (06) ==
LOC: FB.ED 13:22 → FB.MS 17:02
PROVIDERS: ADMIT Family Medicine; ATTEND Family Medicine
DX: R53.1 Weakness (principal); K52.9 Noninfective gastroenteritis and colitis, unspecified; E86.0 Dehydration; I12.9 Hypertensive chronic kidney disease with stage 1 through stage 4 chronic kidney disease, or unspecified chronic kidney disease; E11.22 Type 2 diabetes mellitus with diabetic chronic kidney disease; N18.9 Chronic kidney disease, unspecified; E78.00 Pure hypercholesterolemia, unspecified; E05.90 Thyrotoxicosis, unspecified without thyrotoxic crisis or storm; E66.9 Obesity, unspecified; Z79.82 Long term (current) use of aspirin; Z79.899 Other long term (current) drug therapy; Z88.8 Allergy status to other drugs, medicaments and biological substances; Z68.30 Body mass index [BMI] 30.0-30.9, adult; Z90.49 Acquired absence of other specified parts of digestive tract; Z98.890 Other specified postprocedural states
CPT/HCPCS: 36415; 70450; 71020; 80053; 81001; 82962; 84484; 85025; 93005; 96361; 96365; 96372; 99285; A9270; G0378; J0780; J1650; J7040; J7050; 99217; 99219; 99224; 99283

== ENCOUNTER 2016-12-01 18:16 | Emergency (ER) | payer MEDICARE, OTHER ==
[2016-12-01] MEDS ORDERED: hydrOXYzine HCl 25 MG Tab PO ONE (21:17)
[2016-12-01 21:58] VITALS: BP 165/92
--- NOTE | 2016-12-04 09:49 | ER ---
DATE SEEN: 12/01/2016 HISTORY OF PRESENT ILLNESS: This 81-year-old comes in with a chief complaint, "I want to be placed in a detention. You need to place me in the detention tonight." He notes his appetite is decreased, but he has not lost weight. He eats peanut butter sandwiches. He did have the a same offered to him in the ED by the EDnmatthew, who offered it to him this evening. He also states, he cannot sleep, "I want to go to sleep, but I can't," and the third thing, "I want to stay in the hospital and sign into the hospital tonight. REVIEW OF SYSTEMS: The patient denies shortness of breath, dyspnea. He has trace dyspnea on exertion if he walks long distances. Denies fever, cough, chest pain, abdominal pain. Past retention of urine. He is a retired barba. He stated he was educated in the [facility] and went home and took care of his parents. He has not lost weight, even though he does not have an appetite. PAST MEDICAL HISTORY: Significant for anxiety, prostatism, chronic kidney disease, stage 3. SOCIAL HISTORY: He does not drink alcohol. No history of blood loss, anemia, abdominal pain, or back pain. No difficulty passing urine. He notes more recently, he had a slightly choppy gait. He says, "I can't walk", and after I asked him how did he get into the hospital, he says "I walked in here." When I ask him if he is walking at home, he says he "is walking at home." The patient lives alone. His is . The patient is a [facility] patient. Two days ago, applied for the detention to get into the [facility], but he "won't be able to get in for at least a month" and felt the waiting list was a month. He wants to go to [facility] or [place], one or the other, where there is a [facility] detention. CURRENT MEDICATIONS: 1. Spiriva 18 mcg daily. 2. Zolpidem 5 mg h.s. 3. Montelukast 10 mg at bedtime. 4. Losartan 25 mg daily. 5. Glipizide 2.5 mg at breakfast. 6. Ipratropium nasal spray, 2 sprays t.i.d. 7. Gabapentin 100 mg b.i.d. 8. Lasix 20 mg daily. 9. Flonase 2 sprays both nostrils daily. 10.Finasteride 5 mg daily. 11.Atorvastatin 20 mg daily. 12.Voltaren gel apply p.r.n. 13.Aspirin 81 mg daily. 14.Uloric 40 mg h.s. 15.Albuterol inhaler 2 puffs p.r.n. 16.Acetaminophen. ALLERGIES: Allopurinol, tramadol, valsartan. OTHER PAST MEDICAL HISTORY: Chronic obstructive lung disease, chronic aching pain in his joints. He has prostatism and gout. PHYSICAL EXAMINATION: VITAL SIGNS: Blood pressure 161/85; heart rate 90, sinus rhythm; respirations 18; oxygen saturation 95%; and temperature is 36.8 degrees centigrade. GENERAL: The patient has tran-shaped habitus. He is very anxious. Slight facial flushing when he starts talking, but otherwise his facial flushing relents. He does not have a tachycardia. HEENT: PERRLA intact. Pharynx is without abnormality. NECK: Supple. No thyromegaly or masses in neck. No cervical adenopathy. LUNGS: Clear to auscultation. There are no rales, no rhonchi, no wheezes. HEART: S1, S2. Regular rate and rhythm. No murmur. ABDOMEN: Soft. No guarding. No abdominal discomfort. Increased abdominal girth. GENITALS: Negative. EXTREMITIES: Lower extremities 1+ pedal edema. Dorsalis pedis intact. Gait is short and choppy. Deep tendon reflexes upper extremities 1+, lower extremities 1+. Knee jerk: Left knee jerk is slightly decreased. Right knee jerk is normal. The patient's gait is appropriate and is not ataxic, but is uncertain. Muscle strength is good in upper and lower extremities. Cranial nerves 2 through 12 intact. Oriented x3. No dysmetria. No pronator drift. There is slight tremor increased in the right greater than left. ASSESSMENT: 1. Anxiety-induced fear of falling. 2. He has not fallen, and he walks well tonight. 3. Gait is not ataxic. It is wide-based and a short choppy gait. 4. Hypertension, treated. 5. Congestive heart failure, stable with current pedal edema present. 6. Dyslipidemia. 7. Diabetes, he takes glipizide in the a.m. 8. Fear of falling, apprehensive. 9. History of difficulty sleeping. PLAN: fill rx for [place] for slee. plans are to use Vistaril to take care of his anxiety with hopefully present compromise. Otherwise, the patient is dismissed to follow up with doctor in a week. /[id number] QUIN/ROBIN PERRY
== END 2016-12-01 21:30 | disposition home or self-care (01) ==
LOC: FB.ED 18:16
DX: F40.233 Fear of injury (principal); G47.9 Sleep disorder, unspecified; I12.9 Hypertensive chronic kidney disease with stage 1 through stage 4 chronic kidney disease, or unspecified chronic kidney disease; N18.3 Chronic kidney disease, stage 3 (moderate); E11.22 Type 2 diabetes mellitus with diabetic chronic kidney disease; J44.9 Chronic obstructive pulmonary disease, unspecified; I25.10 Atherosclerotic heart disease of native coronary artery without angina pectoris; E78.5 Hyperlipidemia, unspecified; Z79.84 Long term (current) use of oral hypoglycemic drugs; Z79.82 Long term (current) use of aspirin; Z79.899 Other long term (current) drug therapy; Z88.8 Allergy status to other drugs, medicaments and biological substances
CPT/HCPCS: 36415; 80053; 84484; 85025; 93005; 99284; A9270; 99283

== ENCOUNTER 2016-12-31 09:45 | Emergency (ER) | payer MEDICARE, OTHER ==
--- NOTE | 2016-12-31 11:16 | EDM.PDOC ---
ED HPI GENERAL MEDICAL PROBLEM - General Chief Complaint: Chest Pain Stated Complaint: CHEST PAIN Time Seen by Provider: 12/31/16 09:45 Source of Information: Reports: Patient - History of Present Illness INITIAL COMMENTS - FREE TEXT/NARRATIVE: 81 y.o.w.m with CRI, came to the ed by EMS due to a minor SSCP lasting for less then 5 min. The worst chest pain was 3/10. Pain subsided entirely [employer]. Pt stated , he was recently moved in a skilled nursing home, can not sleep at night with 5 mg of Ambien at night, waking up 5 hours later. NoN/V/D, no F/C no other acute medical issues. BP 165/95, puse 80, RR 16 Pulse ox 98% on RA. Pt stated he is in his usual state of health. He is worring about a lot of things he wants to do , can not do those because he is in a skilled nursing home. Onset: Today Onset Date: 12/31/16 Onset Time: 04:00 Duration: Hour(s):, Other (one time for less then 5 minutes (3/10), no C/P here in [facility] ed) Location: Reports: Chest Quality: Reports: Other (no pain) Associated Symptoms: Reports: No Other Symptoms - Related Data Allergies Allergy/AdvReac Type Severity Reaction Status Date / Time allopurinol Allergy Other Verified 12/31/16 10:01 tramadol Allergy Dizziness Verified 12/31/16 10:01 valsartan Allergy Dizziness Verified 12/31/16 10:01 Home Meds: Home Meds Albuterol Sulfate [Proventil Hfa] 2 puff IH Q6H PRN 02/29/16 [History] Diclofenac Sodium [Voltaren 1% Gel] 1 applic TOP BID PRN 02/29/16 [History] Finasteride [Proscar] 5 mg PO BEDTIME 02/29/16 [History] Fluticasone Propionate [Flonase] 2 sprays NASBOTH DAILY PRN 02/29/16 [History] Ipratropium [Atrovent 0.03% Nasal [place]] 2 sprays NASBOTH TID 02/29/16 [History] Losartan [Cozaar] 25 mg PO DAILY 02/29/16 [History] Montelukast [Singulair] 10 mg PO BEDTIME 02/29/16 [History] Zolpidem [Ambien] 5 mg PO BEDTIME PRN 02/29/16 [History] glipiZIDE [Glucotrol] 2.5 mg PO ACBREAKFAST 02/29/16 [History] Acetaminophen [Tylenol] 650 mg PO Q6H PRN 03/01/16 [History] Aspirin [Ecotrin] 81 mg PO DAILY 03/01/16 [History] [place]der[place] Concentrate Capsule 1 cap PO DAILY 03/01/16 [History] Furosemide [Lasix] 20 mg PO WITHDINNER 03/01/16 [History] Gabapentin [Neurontin] 100 mg PO BID 03/01/16 [History] atorvaSTATin [Lipitor] 20 mg PO BEDTIME 03/01/16 [History] Febuxostat [Uloric] 40 mg PO BEDTIME 11/12/16 [History] Tiotropium [Spiriva] 18 mcg INH DAILY 12/01/16 [History] Sertraline [Zoloft] 25 mg PO DAILY 12/31/16 [History] hydrOXYzine HCl [Atarax] 25 mg PO TID PRN 12/31/16 [History] Past Medical History HEENT History: Reports: Allergic Rhinitis, Hard of Hearing, Sinusitis Cardiovascular History: Reports: High Cholesterol, Hypertension, SOB on Exertion Respiratory History: Reports: SOB Genitourinary History: Reports: Chronic Renal Insuffiency Musculoskeletal History: Reports: Arthritis, Gout Neurological History: Reports: Neuropathy, Peripheral Endocrine/Metabolic History: Reports: Diabetes, Type II, Hyperthyroidism, Obesity/BMI 30+ Hematologic History: Reports: None Oncologic (Cancer) History: Reports: Other (See Below) Other Oncologic History: melanoma Dermatologic History: Reports: Other (See Below) Other Dermatologic History: skin caner - Past Surgical History GI Surgical History: Reports: Cholecystectomy Musculoskeletal Surgical History: Reports: None Dermatological Surgical History: Reports: Skin Graft Social & Family History - Family History Family Medical History: Unobtainable Psychiatric: Reports: None Hematologic: Reports: None - Tobacco Use Smoking Status *Q: Never Smoker Second Hand Smoke Exposure: No - Caffeine Use Caffeine Use: Reports: None Other Caffeine Use: 2 cups of coffee a day - Recreational Drug Use Recreational Drug Use: No - Living Situation & Occupation Living situation: Reports: Single, Alone Occupation: Retired ED ROS GENERAL - Review of Systems Review Of Systems: See Below Constitutional: Reports: No Symptoms HEENT: Reports: No Symptoms Respiratory: Reports: No Symptoms Cardiovascular: Reports: No Symptoms Endocrine: Reports: No Symptoms GI/Abdominal: Reports: No Symptoms : Reports: No Symptoms Musculoskeletal: Reports: No Symptoms Skin: Reports: No Symptoms Neurological: Reports: No Symptoms, Difficulty Walking (chronic, is using a walker for some time) Psychiatric: Reports: Anxiety Hematologic/Lymphatic: Reports: No Symptoms Immunologic: Reports: No Symptoms ED EXAM, GENERAL - Physical Exam Exam: See Below Exam Limited By: No Limitations General Appearance: Alert, WD/WN, No Apparent Distress Eye Exam: Bilateral Eye: Normal Inspection Ears: Normal External Exam Ear Exam: Bilateral Ear: Auricle Normal Nose: Normal Inspection, Normal Mucosa Throat/Mouth: Normal Inspection, Normal Lips Head: Atraumatic, Normocephalic Neck: Normal Inspection, Supple, Non-Tender, Full Range of Motion Respiratory/Chest: No Respiratory Distress, Lungs Clear Cardiovascular: Normal Peripheral Pulses, Regular Rate, Rhythm, No Edema Peripheral Pulses: 1+: Radial (L), Radial (R) GI/Abdominal: Normal Bowel Sounds, Soft, Non-Tender, No Organomegaly (Male) Exam: Deferred Rectal (Males) Exam: Deferred Back Exam: Normal Inspection, Full Range of Motion Extremities: Normal Range of Motion, Non-Tender, Pedal Edema (chronic) Neurological: Alert, Oriented, CN II-XII Intact, Normal Cognition, No Motor/ Sensory Deficits, Abnormal Gait (chronic), Other (no focalweakness) Psychiatric: Normal Affect, Normal Mood Skin Exam: Warm, Dry, Intact, Normal Color, No Rash Lymphatic: No Adenopathy EKG INTERPRETATION EKG Date: 12/31/16 Time: 09:50 Rhythm: NSR Rate (Beats/Min): 80 [place]: Normal P-Wave: Present QRS: Normal ST-T: Normal QT: Normal Comparison: NA - No Prior EKG Course - Vital Signs Text/Narrative:: 81 y.o.w.m with CRI, came to the ed by EMS due to a minor SSCP lasting for less then 5 min. The worst chest pain was 3/10. Pain subsided entirely [employer]. Pt stated , he was recently moved in a skilled nursing home, can not sleep at night with 5 mg of Ambien at night, waking up 5 hours later. NoN/V/D, no F/C no other acute medical issues. BP 165/95, puse 80, RR 16 Pulse ox 98% on RA. Pt stated he is in his usual state of health. He is worring about a lot of things he wants to do , can not do those because he is in a skilled nursing home. PE: WNWN 81 y . o w . NAD, appears comfortable HEENT, Hear, lung wnl, Lower extr.: chronic lower extremity edema. Neuro: nonfocal Labs: CBVC WNL Na 138, K 4.1 BUN 41 Cr 2.4 (Cr 2.3 in nov 2016)Trop 0.02 GFR 26 Glc 199 Imaging: CXR: NAD Impression: CRI, HTN, Insomnia Reexam: improved, in his usual state of health Plan: D/C with instructions Last Recorded V/S: Last Vital Signs Temp 36.8 C 12/31/16 09:45 Pulse 68 12/31/16 11:45 Resp 16 12/31/16 11:45 BP 148/68 H 12/31/16 11:45 Pulse Ox 98 12/31/16 11:45 - Orders/Labs/Meds Labs: Laboratory Tests 12/31/16 12/31/16 12/31/16 Range/Units 10:07 10:07 10:07 WBC 11.3 (4.5-12.0) X10-3/uL RBC 4.63 (4.30-5.75) x10(6)uL Hgb 14.6 (11.5-15.5) g/dL Hct 43.9 (30.0-51.3) % MCV 94.7 (80-96) fL MCH 31.5 (27.7-33.6) pg MCHC 33.3 (32.2-35.4) g/dL RDW 12.4 (11.5-15.5) % Plt Count 251 (125-369) X10(3)uL MPV 8.1 (7.4-10.4) fL Neut % (Auto) 67.0 (46-82) % Lymph % (Auto) 22.7 (13-37) % [place] % (Auto) 7.9 (4-12) % Eos % (Auto) 2 (1.0-5.0) % Baso % (Auto) 0 (0-2) % Neut # (Auto) 7.6 (1.6-8.3) # Lymph # (Auto) 2.6 (0.6-5.0) # [place] # (Auto) 0.9 (0.0-1.3) # Eos # (Auto) 0.2 (0.0-0.8) # Baso # (Auto) 0.0 (0.0-0.2) # Sodium 138 (135-145) mmol/L Potassium 4.1 (3.5-5.3) mmol/L Chloride 101 D (100-110) mmol/L Carbon Dioxide 27 (23-29) mmol/L BUN 41 H (8-23) mg/dL Creatinine 2.4 H* (0.6-1.3) mg/dL Est Cr Clr Drug Dosing TNP Estimated GFR (MDRD) 26 L (>60) BUN/Creatinine Ratio 17.1 (9-20) Glucose 199 H D (80-116) mg/dL Calcium 10.1 (8.6-10.2) mg/dL Total Bilirubin 1.0 (0.1-1.3) mg/dL AST 26 (5-27) IU/L ALT 27 H D (14-26) IU/L Alkaline Phosphatase 72 (56-112) IU/L Creatine Kinase 57 L (60-160) IU/L Troponin I (0.02-0.06) NG/ML NT-Pro-B Natriuret Pep 153 (5-450) pg/mL Total Protein 6.8 (6.0-8.0) g/dL Albumin 3.6 (3.2-4.6) g/dL Globulin 3.2 g/dL Albumin/Globulin Ratio 1.1 12/31/ Range/Units 10:07 WBC (4.5-12.0) X10-3/uL RBC (4.30-5.75) x10(6)uL Hgb (11.5-15.5) g/dL Hct (30.0-51.3) % MCV (80-96) fL MCH (27.7-33.6) pg MCHC (32.2-35.4) g/dL RDW (11.5-15.5) % Plt Count (125-369) X10(3)uL MPV (7.4-10.4) fL Neut % (Auto) (46-82) % Lymph % (Auto) (13-37) % [place] % (Auto) (4-12) % Eos % (Auto) (1.0-5.0) % Baso % (Auto) (0-2) % Neut # (Auto) (1.6-8.3) # Lymph # (Auto) (0.6-5.0) # [place] # (Auto) (0.0-1.3) # Eos # (Auto) (0.0-0.8) # Baso # (Auto) (0.0-0.2) # Sodium (135-145) mmol/L Potassium (3.5-5.3) mmol/L Chloride (100-110) mmol/L Carbon Dioxide (23-29) mmol/L BUN (8-23) mg/dL Creatinine (0.6-1.3) mg/dL Est Cr Clr Drug Dosing Estimated GFR (MDRD) (>60) BUN/Creatinine Ratio (9-20) Glucose (80-116) mg/dL Calcium (8.6-10.2) mg/dL Total Bilirubin (0.1-1.3) mg/dL AST (5-27) IU/L ALT (14-26) IU/L Alkaline Phosphatase (56-112) IU/L Creatine Kinase (60-160) IU/L Troponin I 0.02 (0.02-0.06) NG/ML NT-Pro-B Natriuret Pep (5-450) pg/mL Total Protein (6.0-8.0) g/dL Albumin (3.2-4.6) g/dL Globulin g/dL Albumin/Globulin Ratio Meds: Medications Discontinued Medications Generic Name Dose Route Start Last Admin Trade Name Freq PRN Reason Stop Dose Admin Carvedilol 25 mg 12/31/16 11:29 Coreg PO 12/31/16 11:30 ONETIME ONE Departure - Departure Time of Disposition: 11:36 Disposition: Home, Self-Care 01 Condition: Good Clinical Impression: Atypical chest pain Insomnia Qualifiers: Insomnia type: psychophysiologic Qualified Code(s): F51.04 - Psychophysiologic insomnia Chronic renal disease Qualifiers: Chronic kidney disease stage: unspecified stage Qualified Code(s): N18.9 - Chronic kidney disease, unspecified Referrals: Randy Gutierrez MD [Primary Care Provider] - Forms: ED Department Discharge Additional Instructions: Please increase Ambien Dose from 5 mg to 10 mg every day at bedtime. Please take your BP medication, please follow up, come back to the ed if your symptoms get worse acutely
[2016-12-31] MEDS ORDERED: Carvedilol 25 MG Tab PO ONE (11:29)
[2016-12-31 11:51] VITALS: BP 148/68
--- NOTE | 2017-01-01 11:14 | CR ---
INDICATION: Chest pain. CHEST: AP upright portable view of the chest 12/31/2016 was compared with 11/12, revealing a somewhat prominent appearance of the heart, which likely is at the upper limits of normal in size. The aorta is tortuous and calcified. Overlying EKG leads are noted. An active infiltrate or effusion was not identified. IMPRESSION: 1. No acute process. 2. 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 MTDD
== END 2016-12-31 11:50 | disposition home or self-care (01) ==
LOC: FB.ED 09:45
DX: R07.89 Other chest pain (principal); F51.04 Psychophysiologic insomnia; I12.9 Hypertensive chronic kidney disease with stage 1 through stage 4 chronic kidney disease, or unspecified chronic kidney disease; E11.42 Type 2 diabetes mellitus with diabetic polyneuropathy; E11.22 Type 2 diabetes mellitus with diabetic chronic kidney disease; N18.9 Chronic kidney disease, unspecified; E78.00 Pure hypercholesterolemia, unspecified; E05.90 Thyrotoxicosis, unspecified without thyrotoxic crisis or storm; Z85.820 Personal history of malignant melanoma of skin; Z79.84 Long term (current) use of oral hypoglycemic drugs; Z79.82 Long term (current) use of aspirin; Z79.899 Other long term (current) drug therapy; Z88.5 Allergy status to narcotic agent; Z88.8 Allergy status to other drugs, medicaments and biological substances
CPT/HCPCS: 36415; 71010; 80053; 82550; 83880; 84484; 85025; 93005; 99284; 99285

== ENCOUNTER 2020-08-19 19:04 | Inpatient (IN) | payer MEDICARE, OTHER ==
[~2020-08-19 19:04] MED LIST: Gabapentin 100 MG Cap PO SCH
[2020-08-19] MEDS ORDERED: Acetaminophen 500 MG Tab PO ONE (19:20)
[2020-08-19] MEDS ORDERED: Ketorolac 30 MG/ML SDV IVPUSH ONE (19:45)
[2020-08-19] MEDS ORDERED: Gabapentin 300 MG Cap PO ONE (19:45)
[2020-08-19] MEDS ORDERED: Sodium Chloride 0.9% 1,000 ML IV SCH (19:45)
[2020-08-19] MEDS ORDERED: Morphine 2 MG/ML SYRINGE IVPUSH STA (19:53)
--- NOTE | 2020-08-19 19:57 | EDM.PDOC ---
ED HPI GENERAL MEDICAL PROBLEM - General Chief Complaint: General Stated Complaint: Swelling in Feet, Fell X2 Time Seen by Provider: 08/19/20 19:10 Source of Information: Reports: Patient, EMS History Limitations: Reports: No Limitations - History of Present Illness INITIAL COMMENTS - FREE TEXT/NARRATIVE: Patient is an 85 YO WM who presented to the ED today because of pain on both feet. The pain is shock like just above the ankle to the dorsum of his feet. When it hurts it's a 10/10 according to him. He is taking gabapentin for neuropathy which according to him doesn't seem to help much. Because of the pain he is not able to ambulate well and he fell twice today but didn't sustain any injuries except for an abrasion on the right elbow. There is cough that is dry for 2-3 days now, fever but no chills. There is no nausea,vomiting,diarrhea, constipation or abdominal pain. He denies having urinary symptoms. - Related Data Allergies Allergy/AdvReac Type Severity Reaction Status Date / Time allopurinol Allergy Other Verified 12/31/16 10:01 tramadol Allergy Dizziness Verified 12/31/16 10:01 valsartan Allergy Dizziness Verified 12/31/16 10:01 Home Meds: Home Meds Albuterol Sulfate [Proventil Hfa] 2 puff INH Q6H PRN 02/29/16 [History] Diclofenac Sodium [Voltaren 1% Gel] 1 applic TOP BID PRN 02/29/16 [History] Finasteride [Proscar] 5 mg PO BEDTIME 02/29/16 [History] Fluticasone Propionate [Flonase] 2 sprays NASBOTH BID 02/29/16 [History] Losartan [Cozaar] 25 mg PO DAILY 02/29/16 [History] Montelukast [Singulair] 10 mg PO BEDTIME 02/29/16 [History] glipiZIDE [Glucotrol] 5 mg PO ACBREAKFAST 02/29/16 [History] Acetaminophen [Tylenol] 650 mg PO Q6H PRN 03/01/16 [History] Aspirin [Ecotrin EC] 81 mg PO DAILY 03/01/16 [History] Balderas Concentrate Capsule 1 cap PO DAILY 03/01/16 [History] Furosemide [Lasix] 20 mg PO DAILY 03/01/16 [History] Gabapentin [Neurontin] 200 mg PO TID 03/01/16 [History] atorvaSTATin [Lipitor] 20 mg PO BEDTIME 03/01/16 [History] Febuxostat [Uloric] 40 mg PO BEDTIME 11/12/16 [History] Tiotropium [Spiriva] 18 mcg INH DAILY 12/01/16 [History] .Miconazole 2% Powder 1 applic TOP ASDIRECTED PRN 08/19/20 [History] Albuterol Sulfate [Albuterol Sulfate Hfa] 6.7 gm INH DAILY 08/19/20 [History] Levothyroxine [Synthroid] 100 mcg PO ACBREAKFAST 08/19/20 [History] Omeprazole 20 mg PO DAILY 08/19/20 [History] Sertraline [Zoloft] 50 mg PO DAILY 08/19/20 [History] Tamsulosin HCl [Flomax] 0.4 mg PO BEDTIME 08/19/20 [History] Tiotropium [Spiriva HandiHaler] 1 cap INH DAILY 08/19/20 [History] Past Medical History HEENT History: Reports: Allergic Rhinitis, Hard of Hearing, Sinusitis Cardiovascular History: Reports: High Cholesterol, Hypertension, SOB on Exertion Respiratory History: Reports: SOB Genitourinary History: Reports: Chronic Renal Insuffiency Musculoskeletal History: Reports: Arthritis, Gout Neurological History: Reports: Neuropathy, Peripheral Endocrine/Metabolic History: Reports: Diabetes, Type II, Hyperthyroidism, Obesity/BMI 30+ Hematologic History: Reports: None Oncologic (Cancer) History: Reports: Other (See Below) Other Oncologic History: melanoma Dermatologic History: Reports: Other (See Below) Other Dermatologic History: skin caner - Past Surgical History GI Surgical History: Reports: Cholecystectomy Musculoskeletal Surgical History: Reports: None Dermatological Surgical History: Reports: Skin Graft Social & Family History - Family History Family Medical History: Unobtainable Psychiatric: Reports: None Hematologic: Reports: None - Caffeine Use Caffeine Use: Reports: None Other Caffeine Use: 2 cups of coffee a day - Living Situation & Occupation Living situation: Reports: Single, Alone Occupation: Retired ED ROS GENERAL - Review of Systems Review Of Systems: See Below Constitutional: Reports: Fever HEENT: Reports: No Symptoms Respiratory: Reports: Cough Cardiovascular: Reports: No Symptoms Endocrine: Reports: No Symptoms GI/Abdominal: Reports: No Symptoms : Reports: No Symptoms Musculoskeletal: Reports: No Symptoms Skin: Reports: No Symptoms Neurological: Reports: No Symptoms ED EXAM, GENERAL - Physical Exam Exam: See Below Exam Limited By: No Limitations General Appearance: Alert, No Apparent Distress Eye Exam: Bilateral Eye: PERRL Ears: Normal External Exam, Normal Canal Nose: Normal Inspection, Normal Mucosa, No Blood Throat/Mouth: Normal Inspection, Normal Lips, Normal Teeth Head: Atraumatic, Normocephalic Neck: Normal Inspection, Supple, Non-Tender, Full Range of Motion Respiratory/Chest: No Respiratory Distress, Lungs Clear, Normal Breath Sounds Cardiovascular: Normal Peripheral Pulses, Regular Rate, Rhythm, No Edema, No Gallop GI/Abdominal: Normal Bowel Sounds, Soft, Non-Tender, No Organomegaly Back Exam: Normal Inspection, Full Range of Motion Extremities: Normal Inspection, Normal Range of Motion, Non-Tender Neurological: Alert, Oriented, CN II-XII Intact, Normal Cognition, Normal Reflexes, No Motor/Sensory Deficits Course - Vital Signs Text/Narrative:: Lab/CXR result was reviewed and discussed with patient NS 1 L bolus Rocephin 1 gm IV x2 doses Morphine 2 mg IV x1 Gabapentin 300 mg PO x1 Code Status: Full Code Covid test:negative Last Recorded V/S: Last Vital Signs Temp 38.8 C H 08/19/20 20:57 Pulse 79 08/19/20 20:57 Resp 16 08/19/20 20:57 BP 126/51 L 08/19/20 20:57 Pulse Ox 93 L 08/19/20 20:57 - Orders/Labs/Meds Orders: Active Orders 24 hr Category Date Time Status Patient Status [ADT] Routine ADT 08/19/20 20:27 Active Oxygen Therapy [RC] PRN Care 08/19/20 20:27 Active Pulse Oximetry [RC] PRN Care 08/19/20 20:31 Active RT Post Treatment Assessment [RC] Click to Edit Care 08/19/20 20:52 Active Up With Assistance [RC] ASDIRECTED Care 08/19/20 20:27 Active VTE/DVT Education [RC] Per Unit Routine Care 08/19/20 20:27 Active Vital Signs [RC] Q4H Care 08/19/20 20:27 Active Renal Non-Dialysis Diet [DIET] Diet 08/20/20 Breakfast Ordered Chest 1V Frontal [CR] Stat Exams 08/19/20 19:20 Taken BASIC METABOLIC PANEL,BMP [CHEM] AM Lab 08/20/20 05:11 Ordered CBC WITH AUTO DIFF [HEME] AM Lab 08/20/20 05:11 Ordered CULTURE BLOOD [BC] Urgent Lab 08/19/20 19:20 Received CULTURE BLOOD [BC] Urgent Lab 08/19/20 19:26 Received CULTURE URINE [RM] Stat Lab 08/19/20 20:05 Received LACTIC ACID [CHEM] Stat Lab 08/19/20 22:00 Ordered Acetaminophen [TylenoL] Med 08/19/20 20:36 Active 650 mg PO Q4H PRN Acetaminophen/HYDROcodone [[place] 325-5 MG] Med 08/19/20 20:36 Active 1 tab PO Q4H PRN Albuterol [Ventolin HFA] Med 08/20/20 09:00 Ordered 6.7 gm INH DAILY Albuterol [Ventolin HFA] Med 08/19/20 20:49 Ordered DOSE gm INH Q6H PRN Balderas Concentrate Capsule Med 08/20/20 09:00 Ordered 1 cap PO DAILY Docusate Sodium/Sennosides [Senna Plus] Med 08/19/20 20:36 Active 1 tab PO BID PRN Enoxaparin [Lovenox] Med 08/19/20 21:00 Active 30 mg SUBCUT Q24H Febuxostat [Uloric] Med 08/19/20 21:00 Ordered 40 mg PO BEDTIME Finasteride [Proscar] Med 08/19/20 21:00 Ordered 5 mg PO BEDTIME Fluticasone Propionate [Flonase] Med 08/19/20 21:00 Ordered DOSE gm NASBOTH BID Gabapentin [Neurontin] Med 08/19/20 21:00 Ordered 200 mg PO TID Levothyroxine [Synthroid] Med 08/20/20 07:30 Ordered 100 mcg PO ACBREAKFAST Losartan [Cozaar] Med 08/20/20 09:00 Ordered 25 mg PO DAILY Montelukast [Singulair] Med 08/19/20 21:00 Ordered 10 mg PO BEDTIME Omeprazole [Omeprazole] Med 08/20/20 09:00 Ordered 20 mg PO DAILY Ondansetron [Zofran] Med 08/19/20 20:36 Active 4 mg IV Q4H PRN Sertraline [Zoloft] Med 08/20/20 09:00 Ordered 50 mg PO DAILY Sodium Chloride 0.9% [Normal Saline] 1,000 ml Med 08/19/20 20:45 Active IV ASDIRECTED Sodium Chloride 0.9% [Saline Flush] Med 08/19/20 19:18 Active 10 ml FLUSH ASDIRECTED PRN Tamsulosin [Flomax] Med 08/19/20 21:00 Ordered 0.4 mg PO BEDTIME Tiotropium [Spiriva HandiHaler] Med 08/20/20 09:00 Ordered 1 cap INH DAILY Tiotropium [Spiriva HandiHaler] Med 08/20/20 09:00 Ordered 18 mcg INH DAILY atorvaSTATin [Lipitor] Med 08/19/20 21:00 Ordered 20 mg PO BEDTIME cefTRIAXone [Rocephin] Med 08/19/20 20:15 Active 1 gm IVPUSH Q24H glipiZIDE [Glucotrol] Med 08/20/20 07:30 Ordered 5 mg PO ACBREAKFAST Blood Culture x2 Reflex Set [OM.PC] Urgent Oth 08/19/20 19:18 Ordered Saline Lock Insert [OM.PC] Routine Oth 08/19/20 19:18 Ordered Resuscitation Status Routine Resus Stat 08/19/20 20:27 Ordered Medication Orders Acetaminophen (Acetaminophen 325 Mg Tab) 650 mg PO Q4H PRN PRN Reason: Pain (Mild 1-3)/fever Hydrocodone Bitart/Acetaminophen (Acetaminophen/Hydrocodone 325-5 Mg Tab) 1 tab PO Q4H PRN PRN Reason: Pain (moderate 4-6) Albuterol (Albuterol 8 Gm Inhaler) 6.7 gm INH DAILY [facility] Albuterol (Albuterol 8 Gm Inhaler) 0 gm INH Q6H PRN PRN Reason: Shortness of Breath Atorvastatin Calcium (Atorvastatin 20 Mg Tab) 20 mg PO BEDTIME [facility] Ceftriaxone Sodium (Ceftriaxone 1 Gm Vial) 1 gm IVPUSH Q24H [facility] Last Admin: 08/19/20 20:20 Dose: 1 gm Documented by: GIRMA Enoxaparin Sodium (Enoxaparin 30 Mg/0.3 Ml Syringe) 30 mg SUBCUT Q24H [facility] Febuxostat (Febuxostat 40 Mg Tab) 40 mg PO BEDTIME G[facility] Finasteride (Finasteride 5 Mg Tab) 5 mg PO BEDTIME [facility] Fluticasone Propionate (Fluticasone Propionate Nasal [place] 16 Gm Bottle) gm NASBOTH BID [facility] Gabapentin (Gabapentin 100 Mg Cap) 200 mg PO TID [facility] Glipizide (Glipizide 5 Mg Tab) 5 mg PO ACBREAKFAST [facility] Sodium Chloride (Normal Saline) 1,000 mls @ 125 mls/hr IV ASDIRECTED G[facility] Levothyroxine Sodium (Levothyroxine 100 Mcg Tab) 100 mcg PO ACBREAKFAST G[facility] Losartan Potassium (Losartan 25 Mg Tab) 25 mg PO DAILY [facility] Montelukast Sodium (Montelukast 10 Mg Tab) 10 mg PO BEDTIME [facility] Non-Formulary Medication (Balderas Concentrate Capsule) 1 cap PO DAILY [facility] Non-Formulary Medication (Omeprazole [Omeprazole]) 20 mg PO DAILY [facility] Non-Formulary Medication (Tiotropium [Spiriva Handihaler]) 1 cap INH DAILY [facility] Non-Formulary Medication (Tiotropium [Spiriva Handihaler]) 18 mcg INH DAILY [facility] Ondansetron HCl (Ondansetron 4 Mg/2 Ml Sdv) 4 mg IV Q4H PRN PRN Reason: Nausea/Vomiting Senna/Docusate Sodium (Docusate Sodium/Sennosides 50-8.6 Mg Tab) 1 tab PO BID PRN PRN Reason: Constipation Sertraline HCl (Sertraline 100 Mg Tab) 50 mg PO DAILY [facility] Sodium Chloride (Sodium Chloride 0.9% 10 Ml Syringe) 10 ml FLUSH ASDIRECTED PRN PRN Reason: Keep Vein Open Tamsulosin HCl (Tamsulosin 0.4 Mg Cap.Er) 0.4 mg PO BEDTIME [facility] Labs: Laboratory Tests 08/19/20 08/19/20 08/19/20 Range/Units 19:20 19:20 19:20 WBC 19.6 H (3.2-10.1) x10-3/uL RBC 4.37 (3.90-5.90) x10(6)uL Hgb 13.5 (12.9-17.7) g/dL Hct 41.4 (38.3-50.1) % MCV 94.9 (80.8-98.7) fL MCH 30.9 (27.0-33.3) pg MCHC 32.6 (28.7-35.3) g/dL RDW 13.4 (12.4-15.0) % Plt Count 196 (117-477) x10(3)uL MPV 9.2 (6.7-11.0) fL Add Manual Diff Yes Neutrophils % (Manual) 78 (46-82) % Lymphocytes % (Manual) 12 L (13-37) % Monocytes % (Manual) 10 (4-12) % Sodium 142 (135-145) mmol/L Potassium 5.1 (3.5-5.3) mmol/L Chloride 103 (100-110) mmol/L Carbon Dioxide 29 (21-32) mmol/L BUN 53 H (7-18) mg/dL Creatinine 3.4 H* (0.70-1.30) mg/dL Est Cr Clr Drug Dosing 13.54 mL/min Estimated GFR (MDRD) 17 L (>60) BUN/Creatinine Ratio 15.6 (9-20) Glucose 118 H (80-116) mg/dL Lactic Acid 2.5 H* (0.4-2.0) mmol/L Calcium 9.6 (8.6-10.2) mg/dL Total Bilirubin 0.7 (0.1-1.3) mg/dL AST 28 H (5-25) IU/L ALT 32 (12-36) U/L Alkaline Phosphatase 106 (56-112) IU/L C-Reactive Protein (0.5-0.9) mg/dL Total Protein 7.7 (6.0-8.0) g/dL Albumin 3.2 (3.2-4.6) g/dL Globulin 4.5 g/dL Albumin/Globulin Ratio 0.7 Urine Color (YELLOW) Urine Appearance (CLEAR) Urine pH (5.0-6.5) Ur Specific [place] (1.010-1.025) Urine Protein (NEGATIVE) mg/dL Urine Glucose (UA) (NORMAL) mg/dL Urine Ketones (NEGATIVE) mg/dL Urine Occult Blood (NEGATIVE) Urine Nitrite (NEGATIVE) Urine Bilirubin (NEGATIVE) Urine Urobilinogen (NEGATIVE) mg/dL Ur Leukocyte Esterase (NEGATIVE) Urine RBC (0-5) Urine WBC (0-5) Ur Squamous Epith Cells (NS,R,O) Urine Bacteria (NS) SARS-CoV-2 RNA (RICHIE) (NEGATIVE) 08/19/20 08/19/20 08/19/20 Range/Units 19:20 19:30 20:05 WBC (3.2-10.1) x10-3/uL RBC (3.90-5.90) x10(6)uL Hgb (12.9-17.7) g/dL Hct (38.3-50.1) % MCV (80.8-98.7) fL MCH (27.0-33.3) pg MCHC (28.7-35.3) g/dL RDW (12.4-15.0) % Plt Count (117-477) x10(3)uL MPV (6.7-11.0) fL Add Manual Diff Neutrophils % (Manual) (46-82) % Lymphocytes % (Manual) (13-37) % Monocytes % (Manual) (4-12) % Sodium (135-145) mmol/L Potassium (3.5-5.3) mmol/L Chloride (100-110) mmol/L Carbon Dioxide (21-32) mmol/L BUN (7-18) mg/dL Creatinine (0.70-1.30) mg/dL Est Cr Clr Drug Dosing mL/min Estimated GFR (MDRD) (>60) BUN/Creatinine Ratio (9-20) Glucose (80-116) mg/dL Lactic Acid (0.4-2.0) mmol/L Calcium (8.6-10.2) mg/dL Total Bilirubin (0.1-1.3) mg/dL AST (5-25) IU/L ALT (12-36) U/L Alkaline Phosphatase (56-112) IU/L C-Reactive Protein 6.5 H* (0.5-0.9) mg/dL Total Protein (6.0-8.0) g/dL Albumin (3.2-4.6) g/dL Globulin g/dL Albumin/Globulin Ratio Urine Color Yellow (YELLOW) Urine Appearance Turbid (CLEAR) Urine pH 5.0 (5.0-6.5) Ur Specific [place] 1.015 (1.010-1.025) Urine Protein 30 H (NEGATIVE) mg/dL Urine Glucose (UA) Normal (NORMAL) mg/dL Urine Ketones Negative (NEGATIVE) mg/dL Urine Occult Blood Large H (NEGATIVE) Urine Nitrite Negative (NEGATIVE) Urine Bilirubin Negative (NEGATIVE) Urine Urobilinogen Normal (NEGATIVE) mg/dL Ur Leukocyte Esterase Large H (NEGATIVE) Urine RBC >100 H (0-5) Urine WBC >100 H (0-5) Ur Squamous Epith Cells Few H (NS,R,O) Urine Bacteria Many H (NS) SARS-CoV-2 RNA (RICHIE) Negative (NEGATIVE) Meds: Medications Generic Name Dose Route Start Last Admin Trade Name Freq PRN Reason Stop Dose Admin Acetaminophen 650 mg 08/19/20 20:36 Acetaminophen 325 Mg Tab PO Q4H PRN Pain (Mild 1-3)/fever Hydrocodone Bitart/Acetaminophen 1 tab 08/19/20 20:36 Acetaminophen/Hydrocodone 325-5 Mg Tab PO Q4H PRN Pain (moderate 4-6) Albuterol 6.7 gm 08/20/20 09:00 Albuterol 8 Gm Inhaler INH DAILY [facility] Albuterol 0 gm 08/19/20 20:49 Albuterol 8 Gm Inhaler INH Q6H PRN Shortness of Breath Atorvastatin Calcium 20 mg 08/19/20 21:00 Atorvastatin 20 Mg Tab PO BEDTIME [facility] Ceftriaxone Sodium 1 gm 08/19/20 20:15 08/19/20 20:20 Ceftriaxone 1 Gm Vial IVPUSH 1 gm Q24H G[facility] Administration Enoxaparin Sodium 30 mg 08/19/20 21:00 Enoxaparin 30 Mg/0.3 Ml Syringe SUBCUT Q24H [facility] Febuxostat 40 mg 08/19/20 21:00 Febuxostat 40 Mg Tab PO BEDTIME [facility] Finasteride 5 mg 08/19/20 21:00 Finasteride 5 Mg Tab PO BEDTIME [facility] Fluticasone Propionate gm 08/19/20 21:00 Fluticasone Propionate Nasal [place] 16 Gm Bottle NASBOTH BID [facility] Gabapentin 200 mg 08/19/20 21:00 Gabapentin 100 Mg Cap PO TID [facility] Glipizide 5 mg 08/20/20 07:30 Glipizide 5 Mg Tab PO ACBREAKFAST [facility] Sodium Chloride 1,000 mls @ 125 mls/hr 08/19/20 20:45 Normal Saline IV ASDIRECTED [facility] Levothyroxine Sodium 100 mcg 08/20/20 07:30 Levothyroxine 100 Mcg Tab PO ACBREAKFAST [facility] Losartan Potassium 25 mg 08/20/20 09:00 Losartan 25 Mg Tab PO DAILY [facility] Montelukast Sodium 10 mg 08/19/20 21:00 Montelukast 10 Mg Tab PO BEDTIME [facility] Non-Formulary Medication 1 cap 08/20/20 09:00 Balderas Concentrate Capsule PO DAILY [facility] Non-Formulary Medication 20 mg 08/20/20 09:00 Omeprazole [Omeprazole] PO DAILY [facility] Non-Formulary Medication 1 cap 08/20/20 09:00 Tiotropium [Spiriva Handihaler] INH DAILY [facility] Non-Formulary Medication 18 mcg 08/20/20 09:00 Tiotropium [Spiriva Handihaler] INH DAILY [facility] Ondansetron HCl 4 mg 08/19/20 20:36 Ondansetron 4 Mg/2 Ml Sdv IV Q4H PRN Nausea/Vomiting Senna/Docusate Sodium 1 tab 08/19/20 20:36 Docusate Sodium/Sennosides 50-8.6 Mg Tab PO BID PRN Constipation Sertraline HCl 50 mg 08/20/20 09:00 Sertraline 100 Mg Tab PO DAILY [facility] Sodium Chloride 10 ml 08/19/20 19:18 Sodium Chloride 0.9% 10 Ml Syringe FLUSH ASDIRECTED PRN Keep Vein Open Tamsulosin HCl 0.4 mg 08/19/20 21:00 Tamsulosin 0.4 Mg Cap.Er PO BEDTIME [facility] Discontinued Medications Generic Name Dose Route Start Last Admin Trade Name Freq PRN Reason Stop Dose Admin Acetaminophen 1,000 mg 08/19/20 19:20 08/19/20 19:27 Acetaminophen 500 Mg Tab PO 08/19/20 19:21 1,000 mg ONETIME ONE Administration Ceftriaxone Sodium 1 gm 08/19/20 20:54 08/19/20 20:57 Ceftriaxone 1 Gm Vial IVPUSH 08/19/20 20:55 1 gm NOW STA Administration Gabapentin 300 mg 08/19/20 19:45 08/19/20 20:14 Gabapentin 300 Mg Cap PO 08/19/20 19:46 300 mg ONETIME ONE Administration Sodium Chloride 1,000 mls @ 999 mls/hr 08/19/20 19:45 08/19/20 20:05 Normal Saline IV 08/19/20 20:45 999 mls/hr ASDIRECTED [facility] Administration Ketorolac Tromethamine 30 mg 08/19/20 19:45 08/19/20 20:19 Ketorolac 30 Mg/Ml Sdv IVPUSH 08/19/20 19:46 Not Given ONETIME ONE Morphine Sulfate 2 mg 08/19/20 19:53 08/19/20 20:16 Morphine 2 Mg/Ml Syringe IVPUSH 08/19/20 19:54 2 mg NOW STA Administration Departure - Departure Time of Disposition: 20:00 Disposition: Admitted As Inpatient 67 Condition: Good Clinical Impression: Dehydration, TIERNEY (acute kidney injury), Diabetes mellitus, Sepsis, UTI (urinary tract infection) CKD (chronic kidney disease) Qualifiers: Chronic kidney disease stage: unspecified stage Qualified Code(s): N18.9 - Chronic kidney disease, unspecified - Discharge Information Forms: ED Department Discharge Sepsis Event Note (ED) - Focused Exam Vital Signs: Vital Signs Temp Temp Pulse Resp BP Pulse Ox 08/19/20 20:57 38.8 C H 79 16 126/51 L 93 L 08/19/20 19:10 39.5 C H 08/19/20 19:05 38.6 C H 97 18 140/81 95 - My Orders Last 24 Hours: My Active Orders 08/19/20 19:18 Sodium Chloride 0.9% [Saline Flush] 10 ml FLUSH ASDIRECTED PRN Blood Culture x2 Reflex Set [OM.PC] Urgent Saline Lock Insert [OM.PC] Routine 08/19/20 19:20 Chest 1V Frontal [CR] Stat CULTURE BLOOD [BC] Urgent 08/19/20 19:26 CULTURE BLOOD [BC] Urgent 08/19/20 20:05 CULTURE URINE [RM] Stat 08/19/20 20:15 cefTRIAXone [Rocephin] 1 gm IVPUSH Q24H 08/19/20 20:27 Patient Status [ADT] Routine Oxygen Therapy [RC] PRN Up With Assistance [RC] ASDIRECTED VTE/DVT Education [RC] Per Unit Routine Vital Signs [RC] Q4H Resuscitation Status Routine 08/19/20 20:31 Pulse Oximetry [RC] PRN 08/19/20 20:36 Acetaminophen [TylenoL] 650 mg PO Q4H PRN Acetaminophen/HYDROcodone [[place] 325-5 MG] 1 tab PO Q4H PRN Docusate Sodium/Sennosides [Senna Plus] 1 tab PO BID PRN Ondansetron [Zofran] 4 mg IV Q4H PRN 08/19/20 20:45 Sodium Chloride 0.9% [Normal Saline] 1,000 ml IV ASDIRECTED 08/19/20 20:49 Albuterol [Ventolin HFA] DOSE gm INH Q6H PRN 08/19/20 20:52 RT Post Treatment Assessment [RC] Click to Edit 08/19/20 21:00 Enoxaparin [Lovenox] 30 mg SUBCUT Q24H Febuxostat [Uloric] 40 mg PO BEDTIME Finasteride [Proscar] 5 mg PO BEDTIME Fluticasone Propionate [Flonase] DOSE gm NASBOTH BID Gabapentin [Neurontin] 200 mg PO TID Montelukast [Singulair] 10 mg PO BEDTIME Tamsulosin [Flomax] 0.4 mg PO BEDTIME atorvaSTATin [Lipitor] 20 mg PO BEDTIME 08/19/20 22:00 LACTIC ACID [CHEM] Stat 08/20/20 05:11 BASIC METABOLIC PANEL,BMP [CHEM] AM CBC WITH AUTO DIFF [HEME] AM 08/20/20 Breakfast Renal Non-Dialysis Diet [DIET] 08/20/20 07:30 Levothyroxine [Synthroid] 100 mcg PO ACBREAKFAST glipiZIDE [Glucotrol] 5 mg PO ACBREAKFAST 08/20/20 09:00 Albuterol [Ventolin HFA] 6.7 gm INH DAILY [facility] Concentrate Capsule 1 cap PO DAILY Losartan [Cozaar] 25 mg PO DAILY Omeprazole [Omeprazole] 20 mg PO DAILY Sertraline [Zoloft] 50 mg PO DAILY Tiotropium [Spiriva HandiHaler] 1 cap INH DAILY Tiotropium [Spiriva HandiHaler] 18 mcg INH DAILY - Assessment/Plan Last 24 Hours: My Active Orders 08/19/20 19:18 Sodium Chloride 0.9% [Saline Flush] 10 ml FLUSH ASDIRECTED PRN Blood Culture x2 Reflex Set [OM.PC] Urgent Saline Lock Insert [OM.PC] Routine 08/19/20 19:20 Chest 1V Frontal [CR] Stat CULTURE BLOOD [BC] Urgent 08/19/20 19:26 CULTURE BLOOD [BC] Urgent 08/19/20 20:05 CULTURE URINE [RM] Stat 08/19/20 20:15 cefTRIAXone [Rocephin] 1 gm IVPUSH Q24H 08/19/20 20:27 Patient Status [ADT] Routine Oxygen Therapy [RC] PRN Up With Assistance [RC] ASDIRECTED VTE/DVT Education [RC] Per Unit Routine Vital Signs [RC] Q4H Resuscitation Status Routine 08/19/20 20:31 Pulse Oximetry [RC] PRN 08/19/20 20:36 Acetaminophen [TylenoL] 650 mg PO Q4H PRN Acetaminophen/HYDROcodone [[place] 325-5 MG] 1 tab PO Q4H PRN Docusate Sodium/Sennosides [Senna Plus] 1 tab PO BID PRN Ondansetron [Zofran] 4 mg IV Q4H PRN 08/19/20 20:45 Sodium Chloride 0.9% [Normal Saline] 1,000 ml IV ASDIRECTED 08/19/20 20:49 Albuterol [Ventolin HFA] DOSE gm INH Q6H PRN 08/19/20 20:52 RT Post Treatment Assessment [RC] Click to Edit 08/19/20 21:00 Enoxaparin [Lovenox] 30 mg SUBCUT Q24H Febuxostat [Uloric] 40 mg PO BEDTIME Finasteride [Proscar] 5 mg PO BEDTIME Fluticasone Propionate [Flonase] DOSE gm NASBOTH BID Gabapentin [Neurontin] 200 mg PO TID Montelukast [Singulair] 10 mg PO BEDTIME Tamsulosin [Flomax] 0.4 mg PO BEDTIME atorvaSTATin [Lipitor] 20 mg PO BEDTIME 08/19/20 22:00 LACTIC ACID [CHEM] Stat 08/20/20 05:11 BASIC METABOLIC PANEL,BMP [CHEM] AM CBC WITH AUTO DIFF [HEME] AM 08/20/20 Breakfast Renal Non-Dialysis Diet [DIET] 08/20/20 07:30 Levothyroxine [Synthroid] 100 mcg PO ACBREAKFAST glipiZIDE [Glucotrol] 5 mg PO ACBREAKFAST 08/20/20 09:00 Albuterol [Ventolin HFA] 6.7 gm INH DAILY [facility] Concentrate Capsule 1 cap PO DAILY Losartan [Cozaar] 25 mg PO DAILY Omeprazole [Omeprazole] 20 mg PO DAILY Sertraline [Zoloft] 50 mg PO DAILY Tiotropium [Spiriva HandiHaler] 1 cap INH DAILY Tiotropium [Spiriva HandiHaler] 18 mcg INH DAILY
[2020-08-19] MEDS: cefTRIAXone 1 GM Vial IVPUSH SCH (20:20)
[2020-08-19] MEDS ORDERED: Ondansetron 4 MG/2 ML SDV IV PRN (20:36)
[2020-08-19] MEDS ORDERED: Acetaminophen/HYDROcodone 325-5 MG Tab PO PRN (20:36)
[2020-08-19] MEDS ORDERED: Albuterol 8 GM Inhaler INH PRN (20:49)
[2020-08-19] MEDS ORDERED: cefTRIAXone 1 GM Vial IVPUSH STA (20:54)
[2020-08-19] MEDS ORDERED: Enoxaparin 30 MG/0.3 ML Syringe SUBCUT SCH (21:00)
[2020-08-19] MEDS: Sodium Chloride 0.9% 1,000 ML IV SCH (21:10)
[2020-08-19] MEDS: Tamsulosin 0.4 MG Cap.ER PO SCH (21:47)
[2020-08-19] MEDS: Fluticasone Propionate Nasal Spray 16 GM Bottle NASBOTH SCH (21:48)
[2020-08-19] MEDS: Finasteride 5 MG Tab PO SCH (21:51)
[2020-08-19] MEDS: Montelukast 10 MG Tab PO SCH (21:51)
[2020-08-19] MEDS: atorvaSTATin 20 MG Tab PO SCH (21:51)
[2020-08-19] MEDS: Febuxostat 40 MG Tab PO SCH (22:41)
[2020-08-19] MEDS: Acetaminophen 325 MG Tab PO PRN (23:42)
[2020-08-20] MEDS: Sodium Chloride 0.9% 1,000 ML IV SCH ×3 (05:27→23:50)
[2020-08-20] MEDS ORDERED: glipiZIDE 5 MG Tab PO SCH (07:30)
[2020-08-20] MEDS: Losartan 25 MG Tab PO SCH (08:33)
[2020-08-20] MEDS: Pantoprazole 40 MG Tab.CR PO SCH (08:33)
[2020-08-20] MEDS: Levothyroxine 100 MCG Tab PO SCH (08:33)
[2020-08-20] MEDS: Sertraline 50 MG Tab PO SCH (08:39)
[2020-08-20] MEDS: Tiotropium Bromide 4 GM Inhalation Spray (2.5mcg/1 dose; 10 doses) INH SCH (08:41)
[2020-08-20] MEDS ORDERED: Non-Formulary Medication 1 Each (Tiotropium [Spiriva Handihaler] 18 MCG Cap) INH SCH (09:00)
[2020-08-20] MEDS ORDERED: CHERRY PO SCH (09:00)
--- NOTE | 2020-08-20 11:11 | CR ---
INDICATION: Fever, chills, swelling in ankles. CHEST, ONE-VIEW: An AP upright portable view of the chest 08/19/20 was compared with 12/31/16 and 11/12/16. The heart appears to be near the upper limits of normal in size. The aorta is tortuous with calcification in the arch and descending portion. A definite active infiltrate or effusion was not identified. Degenerative change is noted in the mid thoracic spine. There is noted bronchial cuffing in the lower lung monsalve which could represent active peribronchial disease and/or fibrosis, and should be correlated clinically. IMPRESSION: 1. Bronchial cuffing - correlate clinically as a possibility of active disease. 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
[2020-08-20] MEDS ORDERED: Loperamide 2 MG Cap PO ONE (11:17)
[2020-08-20] MEDS: Fluticasone Propionate Nasal Spray 16 GM Bottle NASBOTH SCH ×2 (11:24→20:15)
[2020-08-20] MEDS: Saccharomyces Boulardii (Probiotic) 250 MG Cap PO SCH ×2 (11:26→20:15)
[2020-08-20] MEDS: Albuterol 8 GM Inhaler INH SCH (11:30)
[2020-08-20] MEDS ORDERED: Saccharomyces Boulardii (Probiotic) 250 MG Cap PO SCH (11:30)
--- NOTE | 2020-08-20 11:35 | PCM.HP.2 ---
H&P History of Present Illness - General Date of Service: 08/20/20 Admit Problem/Dx: Admission Diagnosis/Problem Admission Diagnosis/Problem Urosepsis Source of Information: Patient, EMS Notes Reviewed - History of Present Illness Initial Comments - Free Text/Narative: Angel presented to [facility] yesterday evening by ambulance for bilateral foot pain, 12/12. Had fall x 2 once yesterday and once on Sunday. Had been having fever and dry cough for 2-3 days, diarrhea that started yesterday morning. Temp in ER was 102.9F. Normally has 1 bowel movement a day, formed. Denies any shortness of breath, chest pain, abdominal pain, nausea or vomiting. Denied any frequency, dysuria or hematuria. Stated to ER physician that Gabapentin didn't seem to help his foot pain. History of Type 2 Diabetes on glipizide, cholecystectomy, has abdominal incision. Unaware of any hernias. He is hard of hearing and has upper & lower dentures. He is resident of [facility] in [place], [place]. ER Course: WBC 19.6, Cr 3.4, Lactic acid 2.5, repeat 2.5 & 2.3, CRP 6.5. Chest x-ray was negative for acute process. UA was positive for large leukocyte esterase, few epithelial cells, many bacteria. Given 1 dose of Rocephin in ER, NS 1 L bolus then at 125 ml/hr. Covid negative. C. Difficile negative. Abdomen /pelvis CT without contrast ordered for this morning. - Related Data Allergies/Adverse Reactions: Allergies Allergy/AdvReac Type Severity Reaction Status Date / Time allopurinol Allergy Other Verified 08/19/20 21:02 tramadol Allergy Dizziness Verified 08/19/20 21:02 valsartan Allergy Dizziness Verified 08/19/20 21:02 Home Medications: Home Meds Albuterol Sulfate [Proventil Hfa] 2 puff INH Q6H PRN 02/29/16 [History] Diclofenac Sodium [Voltaren 1% Gel] 1 applic TOP BID PRN 02/29/16 [History] Finasteride [Proscar] 5 mg PO BEDTIME 02/29/16 [History] Fluticasone Propionate [Flonase] 2 sprays NASBOTH BID 02/29/16 [History] Losartan [Cozaar] 25 mg PO DAILY 02/29/16 [History] Montelukast [Singulair] 10 mg PO BEDTIME 02/29/16 [History] glipiZIDE [Glucotrol] 5 mg PO ACBREAKFAST 02/29/16 [History] Acetaminophen [Tylenol] 650 mg PO Q6H PRN 03/01/16 [History] Aspirin [Ecotrin EC] 81 mg PO DAILY 03/01/16 [History] [place]der[place] Concentrate Capsule 1 cap PO DAILY 03/01/16 [History] Furosemide [Lasix] 20 mg PO DAILY 03/01/16 [History] Gabapentin [Neurontin] 200 mg PO TID 03/01/16 [History] atorvaSTATin [Lipitor] 20 mg PO BEDTIME 03/01/16 [History] Febuxostat [Uloric] 40 mg PO BEDTIME 11/12/16 [History] Tiotropium [Spiriva] 18 mcg INH DAILY 12/01/16 [History] .Miconazole 2% Powder 1 applic TOP ASDIRECTED PRN 08/19/20 [History] Albuterol Sulfate [Albuterol Sulfate Hfa] 2 puff INH DAILY 08/19/20 [History] Levothyroxine [Synthroid] 100 mcg PO ACBREAKFAST 08/19/20 [History] Omeprazole 20 mg PO DAILY 08/19/20 [History] Sertraline [Zoloft] 50 mg PO DAILY 08/19/20 [History] Tamsulosin HCl [Flomax] 0.4 mg PO BEDTIME 08/19/20 [History] Past Medical History HEENT History: Reports: Allergic Rhinitis, Hard of Hearing, Sinusitis Cardiovascular History: Reports: High Cholesterol, Hypertension, SOB on Exertion, Other (See Below) Other Cardiovascular History: Generalized edema. Respiratory History: Reports: SOB Genitourinary History: Reports: BPH, Chronic Renal Insuffiency Musculoskeletal History: Reports: Arthritis, Gout, Other (See Below) Other Musculoskeletal History: Left knee pain. Neurological History: Reports: Neuropathy, Peripheral Endocrine/Metabolic History: Reports: Diabetes, Type II, Hyperthyroidism, Obesity/BMI 30+ Hematologic History: Reports: None Oncologic (Cancer) History: Reports: Other (See Below) Other Oncologic History: Melanoma. Dermatologic History: Reports: Other (See Below) Other Dermatologic History: Skin cancer. - Past Surgical History GI Surgical History: Reports: Cholecystectomy Endocrine Surgical History: Reports: Thyroidectomy Musculoskeletal Surgical History: Reports: None Dermatological Surgical History: Reports: Skin Graft Social & Family History - Family History Family Medical History: Unobtainable Psychiatric: Reports: None Hematologic: Reports: None - Tobacco Use Tobacco Use Status *Q: Never Tobacco User - Caffeine Use Caffeine Use: Reports: Coffee Other Caffeine Use: 2 cups of coffee a day - Recreational Drug Use Recreational Drug Use: No - Living Situation & Occupation Living situation: Reports: Single, Alone Occupation: Retired H&P Review of Systems - Review of Systems: Review Of Systems: Comprehensive ROS is negative, except as noted in HPI. Exam - Exam Exam: See Below - Vital Signs Vital Signs: Last Vital Signs Temp 99.9 F 08/20/20 09:00 Pulse 76 08/20/20 09:00 Resp 16 08/20/20 09:00 BP 109/57 L 08/20/20 09:00 Pulse Ox 93 L 08/20/20 09:00 Weight: 188 lb - Exam General: Alert, Oriented (x3), Cooperative HEENT: PERRLA, Conjunctiva Clear, Other (missing his dentures). No: Hearing Intact Neck: Trachea Midline Lungs: Clear to Auscultation, Normal Respiratory Effort Cardiovascular: Regular Rate, Regular Rhythm. No: Systolic Murmur GI/Abdominal Exam: Soft, Non-Tender, No Distention, Abnormal Bowel Sounds (hyperactive BS x 4), Other (Incisional scars proximal to umbilicus, no palpable hernia noted, NT.). No: Guarding, Rigid (Male) Exam: Deferred Rectal (Males) Exam: Deferred Extremities: Pedal Edema (trace BLE) Peripheral Pulses: 2+: Radial (L), Radial (R) Skin: Warm, Dry, Intact Neurological: Cranial Nerves Intact, Sensation Intact - Patient Data Lab Results Last 24 hrs: Laboratory Results - last 24 hr 08/19/20 08/19/20 08/19/20 Range/Units 19:20 19:20 19:20 WBC 19.6 H (3.2-10.1) x10-3/uL RBC 4.37 (3.90-5.90) x10(6)uL Hgb 13.5 (12.9-17.7) g/dL Hct 41.4 (38.3-50.1) % MCV 94.9 (80.8-98.7) fL MCH 30.9 (27.0-33.3) pg MCHC 32.6 (28.7-35.3) g/dL RDW 13.4 (12.4-15.0) % Plt Count 196 (117-477) x10(3)uL MPV 9.2 (6.7-11.0) fL Add Manual Diff Yes Neutrophils % (Manual) 78 (46-82) % Band Neutrophils % (0-6) % Lymphocytes % (Manual) 12 L (13-37) % Monocytes % (Manual) 10 (4-12) % Metamyelocytes % (0-0) % Toxic Granulation (NOT SEEN) Sodium 142 (135-145) mmol/L Potassium 5.1 (3.5-5.3) mmol/L Chloride 103 (100-110) mmol/L Carbon Dioxide 29 (21-32) mmol/L BUN 53 H (7-18) mg/dL Creatinine 3.4 H* (0.70-1.30) mg/dL Est Cr Clr Drug Dosing 13.54 mL/min Estimated GFR (MDRD) 17 L (>60) BUN/Creatinine Ratio 15.6 (9-20) Glucose 118 H (80-116) mg/dL Lactic Acid 2.5 H* (0.4-2.0) mmol/L Calcium 9.6 (8.6-10.2) mg/dL Total Bilirubin 0.7 (0.1-1.3) mg/dL AST 28 H (5-25) IU/L ALT 32 (12-36) U/L Alkaline Phosphatase 106 (56-112) IU/L C-Reactive Protein (0.5-0.9) mg/dL Total Protein 7.7 (6.0-8.0) g/dL Albumin 3.2 (3.2-4.6) g/dL Globulin 4.5 g/dL Albumin/Globulin Ratio 0.7 Urine Color (YELLOW) Urine Appearance (CLEAR) Urine pH (5.0-6.5) Ur Specific [place] (1.010-1.025) Urine Protein (NEGATIVE) mg/dL Urine Glucose (UA) (NORMAL) mg/dL Urine Ketones (NEGATIVE) mg/dL Urine Occult Blood (NEGATIVE) Urine Nitrite (NEGATIVE) Urine Bilirubin (NEGATIVE) Urine Urobilinogen (NEGATIVE) mg/dL Ur Leukocyte Esterase (NEGATIVE) Urine RBC (0-5) Urine WBC (0-5) Ur Squamous Epith Cells (NS,R,O) Urine Bacteria (NS) SARS-CoV-2 RNA (RICHIE) (NEGATIVE) 08/19/20 08/19/20 08/19/20 Range/Units 19:20 19:30 20:05 WBC (3.2-10.1) x10-3/uL RBC (3.90-5.90) x10(6)uL Hgb (12.9-17.7) g/dL Hct (38.3-50.1) % MCV (80.8-98.7) fL MCH (27.0-33.3) pg MCHC (28.7-35.3) g/dL RDW (12.4-15.0) % Plt Count (117-477) x10(3)uL MPV (6.7-11.0) fL Add Manual Diff Neutrophils % (Manual) (46-82) % Band Neutrophils % (0-6) % Lymphocytes % (Manual) (13-37) % Monocytes % (Manual) (4-12) % Metamyelocytes % (0-0) % Toxic Granulation (NOT SEEN) Sodium (135-145) mmol/L Potassium (3.5-5.3) mmol/L Chloride (100-110) mmol/L Carbon Dioxide (21-32) mmol/L BUN (7-18) mg/dL Creatinine (0.70-1.30) mg/dL Est Cr Clr Drug Dosing mL/min Estimated GFR (MDRD) (>60) BUN/Creatinine Ratio (9-20) Glucose (80-116) mg/dL Lactic Acid (0.4-2.0) mmol/L Calcium (8.6-10.2) mg/dL Total Bilirubin (0.1-1.3) mg/dL AST (5-25) IU/L ALT (12-36) U/L Alkaline Phosphatase (56-112) IU/L C-Reactive Protein 6.5 H* (0.5-0.9) mg/dL Total Protein (6.0-8.0) g/dL Albumin (3.2-4.6) g/dL Globulin g/dL Albumin/Globulin Ratio Urine Color Yellow (YELLOW) Urine Appearance Turbid (CLEAR) Urine pH 5.0 (5.0-6.5) Ur Specific [place] 1.015 (1.010-1.025) Urine Protein 30 H (NEGATIVE) mg/dL Urine Glucose (UA) Normal (NORMAL) mg/dL Urine Ketones Negative (NEGATIVE) mg/dL Urine Occult Blood Large H (NEGATIVE) Urine Nitrite Negative (NEGATIVE) Urine Bilirubin Negative (NEGATIVE) Urine Urobilinogen Normal (NEGATIVE) mg/dL Ur Leukocyte Esterase Large H (NEGATIVE) Urine RBC >100 H (0-5) Urine WBC >100 H (0-5) Ur Squamous Epith Cells Few H (NS,R,O) Urine Bacteria Many H (NS) SARS-CoV-2 RNA (RICHIE) Negative (NEGATIVE) 08/19/20 08/20/20 08/20/20 Range/Units 22:00 05:50 05:50 WBC 21.0 H (3.2-10.1) x10-3/uL RBC 3.84 L (3.90-5.90) x10(6)uL Hgb 12.2 L (12.9-17.7) g/dL Hct 36.7 L (38.3-50.1) % MCV 95.4 (80.8-98.7) fL MCH 31.7 (27.0-33.3) pg MCHC 33.2 (28.7-35.3) g/dL RDW 13.7 (12.4-15.0) % Plt Count 169 (117-477) x10(3)uL MPV 9.7 (6.7-11.0) fL Add Manual Diff Yes Neutrophils % (Manual) 65 (46-82) % Band Neutrophils % 21 H* (0-6) % Lymphocytes % (Manual) 9 L (13-37) % Monocytes % (Manual) 4 (4-12) % Metamyelocytes % 1 H (0-0) % Toxic Granulation Moderate H (NOT SEEN) Sodium 142 (135-145) mmol/L Potassium 4.2 (3.5-5.3) mmol/L Chloride 107 (100-110) mmol/L Carbon Dioxide 26 (21-32) mmol/L BUN 54 H (7-18) mg/dL Creatinine 3.5 H* (0.70-1.30) mg/dL Est Cr Clr Drug Dosing 13.16 mL/min Estimated GFR (MDRD) 17 L (>60) BUN/Creatinine Ratio 15.4 (9-20) Glucose 120 H (80-116) mg/dL Lactic Acid 2.5 H* (0.4-2.0) mmol/L Calcium 8.3 L (8.6-10.2) mg/dL Total Bilirubin (0.1-1.3) mg/dL AST (5-25) IU/L ALT (12-36) U/L Alkaline Phosphatase (56-112) IU/L C-Reactive Protein (0.5-0.9) mg/dL Total Protein (6.0-8.0) g/dL Albumin (3.2-4.6) g/dL Globulin g/dL Albumin/Globulin Ratio Urine Color (YELLOW) Urine Appearance (CLEAR) Urine pH (5.0-6.5) Ur Specific [place] (1.010-1.025) Urine Protein (NEGATIVE) mg/dL Urine Glucose (UA) (NORMAL) mg/dL Urine Ketones (NEGATIVE) mg/dL Urine Occult Blood (NEGATIVE) Urine Nitrite (NEGATIVE) Urine Bilirubin (NEGATIVE) Urine Urobilinogen (NEGATIVE) mg/dL Ur Leukocyte Esterase (NEGATIVE) Urine RBC (0-5) Urine WBC (0-5) Ur Squamous Epith Cells (NS,R,O) Urine Bacteria (NS) SARS-CoV-2 RNA (RICHIE) (NEGATIVE) 08/20/20 Range/Units 05:50 WBC (3.2-10.1) x10-3/uL RBC (3.90-5.90) x10(6)uL Hgb (12.9-17.7) g/dL Hct (38.3-50.1) % MCV (80.8-98.7) fL MCH (27.0-33.3) pg MCHC (28.7-35.3) g/dL RDW (12.4-15.0) % Plt Count (117-477) x10(3)uL MPV (6.7-11.0) fL Add Manual Diff Neutrophils % (Manual) (46-82) % Band Neutrophils % (0-6) % Lymphocytes % (Manual) (13-37) % Monocytes % (Manual) (4-12) % Metamyelocytes % (0-0) % Toxic Granulation (NOT SEEN) Sodium (135-145) mmol/L Potassium (3.5-5.3) mmol/L Chloride (100-110) mmol/L Carbon Dioxide (21-32) mmol/L BUN (7-18) mg/dL Creatinine (0.70-1.30) mg/dL Est Cr Clr Drug Dosing mL/min Estimated GFR (MDRD) (>60) BUN/Creatinine Ratio (9-20) Glucose (80-116) mg/dL Lactic Acid 2.3 H* (0.4-2.0) mmol/L Calcium (8.6-10.2) mg/dL Total Bilirubin (0.1-1.3) mg/dL AST (5-25) IU/L ALT (12-36) U/L Alkaline Phosphatase (56-112) IU/L C-Reactive Protein (0.5-0.9) mg/dL Total Protein (6.0-8.0) g/dL Albumin (3.2-4.6) g/dL Globulin g/dL Albumin/Globulin Ratio Urine Color (YELLOW) Urine Appearance (CLEAR) Urine pH (5.0-6.5) Ur Specific [place] (1.010-1.025) Urine Protein (NEGATIVE) mg/dL Urine Glucose (UA) (NORMAL) mg/dL Urine Ketones (NEGATIVE) mg/dL Urine Occult Blood (NEGATIVE) Urine Nitrite (NEGATIVE) Urine Bilirubin (NEGATIVE) Urine Urobilinogen (NEGATIVE) mg/dL Ur Leukocyte Esterase (NEGATIVE) Urine RBC (0-5) Urine WBC (0-5) Ur Squamous Epith Cells (NS,R,O) Urine Bacteria (NS) SARS-CoV-2 RNA (RICHIE) (NEGATIVE) Result Diagrams: 08/20/20 05:50 08/20/20 05:50 Michael Results Last 24 hrs: Microbiology 08/20/20 00:52 C. difficile Antigen & Toxins A,B - Final Stool / Feces Sepsis Event Note - Evaluation Sepsis Screening Result: No Definite Risk Current Stage of Sepsis: Sepsis Possible Source of Sepsis: Genitourinary - Focused Exam Sepsis Event Note Statement: Focused Sepsis Exam Completed Vital Signs: Vital Signs Temp Temp Temp Pulse Resp BP BP 08/20/20 09:00 99.9 F 76 16 109/57 L 08/20/20 08:33 109/57 L 08/20/20 05:30 97.8 F 78 16 118/52 L 08/20/20 01:56 101.2 F H 08/20/20 00:55 102.9 F H 102 H 18 140/58 L 08/20/20 00:00 100.9 F H 100 18 139/66 Pulse Ox 08/20/20 09:00 93 L 08/20/20 08:33 08/20/20 05:30 94 L 08/20/20 01:56 08/20/20 00:55 94 L 08/20/20 00:00 94 L Capillary Refill, Detail: Less than/Equal to (</=) 2 Seconds Skin Exam (Focused Sepsis): Flushed, Pale Date Exam was Performed: 08/20/20 Time Exam was Performed: 08:30 *Q Meaningful Use (ADM) - VTE *Q VTE Mechanical Contraindications *Q: At Risk for Falls - Problem List (1) Sepsis SNOMED Code(s): 57498452 ICD Code: A41.9 - SEPSIS, UNSPECIFIED ORGANISM Status: Acute Current Visit: No Qualifiers: Sepsis acute organ dysfunction status: with acute organ dysfunction Severe sepsis acute organ dysfunction type: acute renal failure Severe sepsis shock status: without septic shock (2) Colitis SNOMED Code(s): 02786368 ICD Code: K52.9 - NONINFECTIVE GASTROENTERITIS AND COLITIS, UNSPECIFIED Status: Acute Current Visit: Yes (3) UTI (urinary tract infection) SNOMED Code(s): 60482994 ICD Code: N39.0 - URINARY TRACT INFECTION, SITE NOT SPECIFIED Status: Acute Current Visit: No (4) TIERNEY (acute kidney injury) SNOMED Code(s): 08428280, 78291629 ICD Code: N17.9 - ACUTE KIDNEY FAILURE, UNSPECIFIED Status: Acute Current Visit: No (5) Fall SNOMED Code(s): 4795165, 902896693 ICD Code: W19.XXXA - UNSPECIFIED FALL, INITIAL ENCOUNTER Status: Acute Current Visit: Yes (6) Dehydration SNOMED Code(s): 03892852 ICD Code: E86.0 - DEHYDRATION Status: Acute Current Visit: No (7) Weakness SNOMED Code(s): 94713795 ICD Code: R53.1 - WEAKNESS Status: Acute Current Visit: No (8) Chronic renal disease SNOMED Code(s): 091607931 ICD Code: N18.9 - CHRONIC KIDNEY DISEASE, UNSPECIFIED Status: Chronic Current Visit: No Qualifiers: Chronic kidney disease stage: unspecified stage Qualified Code(s): N18.9 - Chronic kidney disease, unspecified (9) Diabetes mellitus SNOMED Code(s): 48771484 ICD Code: E11.9 - TYPE 2 DIABETES MELLITUS WITHOUT COMPLICATIONS Status: Chronic Current Visit: No Qualifiers: Diabetes mellitus type: type 2 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 Problem List Initiated/Reviewed/Updated: Yes Orders Last 24hrs: Active Orders 24 hr Category Date Time Status Patient Status [ADT] Routine ADT 08/19/20 20:27 Active Oxygen Therapy [RC] PRN Care 08/19/20 20:27 Active Pulse Oximetry [RC] PRN Care 08/19/20 20:31 Active RT Post Treatment Assessment [RC] Click to Edit Care 08/19/20 20:52 Active Up With Assistance [RC] ASDIRECTED Care 08/19/20 20:27 Active VTE/DVT Education [RC] Per Unit Routine Care 08/19/20 20:27 Active Vital Signs [RC] Q4H Care 08/19/20 20:27 Active Renal Non-Dialysis Diet [DIET] Diet 08/20/20 Breakfast Ordered Abdomen Pelvis wo Cont [CT] Routine Exams 08/20/20 01:02 Taken BASIC METABOLIC PANEL,BMP [CHEM] Routine Lab 08/21/20 06:00 Ordered CBC WITH AUTO DIFF [HEME] Routine Lab 08/21/20 06:00 Ordered CULTURE BLOOD [BC] Urgent Lab 08/19/20 19:20 Received CULTURE BLOOD [BC] Urgent Lab 08/19/20 19:26 Received CULTURE URINE [RM] Stat Lab 08/19/20 20:05 Received LACTATE SEPSIS W/ REFLEX [CHEM] Routine Lab 08/20/20 12:00 Ordered OVA + PARASITE EXAM Stat Lab 08/20/20 00:52 Received STOOL CULTURE Stat Lab 08/20/20 00:52 Received Acetaminophen [TylenoL] Med 08/19/20 20:36 Active 650 mg PO Q4H PRN Acetaminophen/HYDROcodone [[place] 325-5 MG] Med 08/19/20 20:36 Active 1 tab PO Q4H PRN Albuterol [Ventolin HFA] Med 08/20/20 09:00 Active 0 gm INH DAILY Albuterol [Ventolin HFA] Med 08/20/20 08:36 Active 0 gm INH Q6H PRN Docusate Sodium/Sennosides [Senna Plus] Med 08/19/20 20:36 Active 1 tab PO BID PRN Enoxaparin [Lovenox] Med 08/19/20 21:00 Active 30 mg SUBCUT Q24H Febuxostat [Uloric] Med 08/19/20 21:00 Active 40 mg PO BEDTIME Finasteride [Proscar] Med 08/19/20 21:00 Active 5 mg PO BEDTIME Fluticasone Propionate [Flonase] Med 08/19/20 21:00 Active 0 gm NASBOTH BID Gabapentin [Neurontin] Med 08/22/20 21:00 Active 200 mg PO BEDTIME Levothyroxine [Synthroid] Med 08/20/20 07:30 Active 100 mcg PO ACBREAKFAST Losartan [Cozaar] Med 08/20/20 09:00 Active 25 mg PO DAILY Montelukast [Singulair] Med 08/19/20 21:00 Active 10 mg PO BEDTIME Ondansetron [Zofran] Med 08/19/20 20:36 Active 4 mg IV Q4H PRN Pantoprazole [ProTONIX] Med 08/20/20 07:30 Active 40 mg PO ACBREAKFAST Saccharomyces Boulardii [Florastor] Med 08/20/20 10:00 Active 250 mg PO BID Sertraline [Zoloft] Med 08/20/20 09:00 Active 50 mg PO DAILY Sodium Chloride 0.9% [Normal Saline] 1,000 ml Med 08/19/20 20:45 Active IV ASDIRECTED Sodium Chloride 0.9% [Saline Flush] Med 08/19/20 19:18 Active 10 ml FLUSH ASDIRECTED PRN Tamsulosin [Flomax] Med 08/19/20 21:00 Active 0.4 mg PO BEDTIME Tiotropium [place] [Spiriva Respimat] Med 08/20/20 09:00 Active 2 gm INH DAILY atorvaSTATin [Lipitor] Med 08/19/20 21:00 Active 20 mg PO BEDTIME cefTRIAXone [Rocephin] Med 08/19/20 20:15 Active 1 gm IVPUSH Q24H glipiZIDE [Glucotrol] Med 08/20/20 07:30 Active 5 mg PO ACBREAKFAST Blood Culture x2 Reflex Set [OM.PC] Urgent Oth 08/19/20 19:18 Ordered Saline Lock Insert [OM.PC] Routine Oth 08/19/20 19:18 Ordered Resuscitation Status Routine Resus Stat 08/19/20 20:27 Ordered Medication Orders Acetaminophen (Acetaminophen 325 Mg Tab) 650 mg PO Q4H PRN PRN Reason: Pain (Mild 1-3)/fever Last Admin: 08/19/20 23:42 Dose: 650 mg Documented by: TORI Hydrocodone Bitart/Acetaminophen (Acetaminophen/Hydrocodone 325-5 Mg Tab) 1 tab PO Q4H PRN PRN Reason: Pain (moderate 4-6) Albuterol (Albuterol 8 Gm Inhaler) 0 gm INH DAILY GARTH Albuterol (Albuterol 8 Gm Inhaler) 0 gm INH Q6H PRN PRN Reason: SHORTNESS OF BREATH Atorvastatin Calcium (Atorvastatin 20 Mg Tab) 20 mg PO BEDTIME [facility] Last Admin: 08/19/20 21:51 Dose: 20 mg Documented by: TORI Ceftriaxone Sodium (Ceftriaxone 1 Gm Vial) 1 gm IVPUSH Q24H [facility] Last Admin: 08/19/20 20:20 Dose: 1 gm Documented by: GIRMA Enoxaparin Sodium (Enoxaparin 30 Mg/0.3 Ml Syringe) 30 mg SUBCUT Q24H [facility] Last Admin: 08/19/20 21:49 Dose: 30 mg Documented by: TORI Febuxostat (Febuxostat 40 Mg Tab) 40 mg PO BEDTIME [facility] Last Admin: 08/19/20 22:41 Dose: Not Given Documented by: TORI Finasteride (Finasteride 5 Mg Tab) 5 mg PO BEDTIME [facility] Last Admin: 08/19/20 21:51 Dose: 5 mg Documented by: TORI Fluticasone Propionate (Fluticasone Propionate Nasal [place] 16 Gm Bottle) 0 gm NASBOTH BID [facility] Last Admin: 08/20/20 11:24 Dose: 2 spray Documented by: Admin: 08/19/20 21:48 Dose: 2 spray Documented by: TORI Gabapentin (Gabapentin 100 Mg Cap) 200 mg PO BID [facility] Stop: 08/21/20 21:01 Gabapentin (Gabapentin 100 Mg Cap) 200 mg PO BEDTIME [facility] Glipizide (Glipizide 5 Mg Tab) 5 mg PO ACBREAKFAST [facility] Last Admin: 08/20/20 08:31 Dose: 5 mg Documented by: LEE Sodium Chloride (Normal Saline) 1,000 mls @ 125 mls/hr IV ASDIRECTED [facility] Last Admin: 08/20/20 05:27 Dose: 125 mls/hr Documented by: Infusion: 08/20/20 05:10 Dose: 125 mls/hr Documented by: Admin: 08/19/20 21:10 Dose: 125 mls/hr Documented by: GIRMA Levothyroxine Sodium (Levothyroxine 100 Mcg Tab) 100 mcg PO ACBREAKFAST [facility] Last Admin: 08/20/20 08:33 Dose: 100 mcg Documented by: LEE Losartan Potassium (Losartan 25 Mg Tab) 25 mg PO DAILY [facility] Last Admin: 08/20/20 08:33 Dose: 25 mg Documented by: LEE Montelukast Sodium (Montelukast 10 Mg Tab) 10 mg PO BEDTIME [facility] Last Admin: 08/19/20 21:51 Dose: 10 mg Documented by: TORI Ondansetron HCl (Ondansetron 4 Mg/2 Ml Sdv) 4 mg IV Q4H PRN PRN Reason: Nausea/Vomiting Pantoprazole Sodium (Pantoprazole 40 Mg Tab.Cr) 40 mg PO ACBREAKFAST [facility] Last Admin: 08/20/20 08:33 Dose: 40 mg Documented by: LEE Saccharomyces Boulardii (Saccharomyces Boulardii (Probiotic) 250 Mg Cap) 250 mg PO BID [facility] Senna/Docusate Sodium (Docusate Sodium/Sennosides 50-8.6 Mg Tab) 1 tab PO BID PRN PRN Reason: Constipation Sertraline HCl (Sertraline 50 Mg Tab) 50 mg PO DAILY [facility] Last Admin: 08/20/20 08:39 Dose: 50 mg Documented by: LEE Sodium Chloride (Sodium Chloride 0.9% 10 Ml Syringe) 10 ml FLUSH ASDIRECTED PRN PRN Reason: Keep Vein Open Tamsulosin HCl (Tamsulosin 0.4 Mg Cap.Er) 0.4 mg PO BEDTIME [facility] Last Admin: 08/19/20 21:47 Dose: 0.4 mg Documented by: TORI Tiotropium [place] (Tiotropium [place] 4 Gm Inhalation [place] (2.5mcg/1 Dose; 10 Doses)) 2 gm INH DAILY GARTH Last Admin: 08/20/20 08:41 Dose: 2 puff Documented by: LEE Assessment/Plan Comment:: 1. Admit for Severe sepsis with acute on chronic renal failure, UTI, Right sided colitis. 2. Sepsis/UTI/Colitis: CT abdomen/pelvis without contrast showed cystitis, ascending colon inflammation and fat stranding with degree of peritonitis, diverticulosis but without diverticulitis. Large ventral hernia with transverse colon & small bowel present without evidence of obstruction. Small area of gas in subcutaneous tissue to the left of hernia, possibly secondary to subcutaneous Lovenox injection no evidence of infection at site. Received 1 dose of Rocephin last evening, due at 1999, added Metronidazole 500 mg IV q8h, repeat Lactic acid at noon was 3.1, reflex to repeat q3h until <2.0. WBC 21.0, with 21% bands this morning. Adjust treatments as necessary. Repeat labs in am, blood & urine cultures pending. Imodium x 1 given for watery diarrhea, had negative C. diff on admit. 3. Acute on chronic renal failure: NS at 125 ml/hr, continue to monitor. Renal adjustment of his home medication, reduced Gabapentin to 200 mg tid x 3 days then will decrease to 200 mg at bedtime. Changed Lovenox to heparin 5000 units SQ q12h to start this evening to avoid giving around umbilicus as well as his current renal function. 4. DM: continue Glipizide, AccuChecks bidac. 5. DIET: Renal. 6. ACTIVITY: Up with assistance. 7. Weakness/fall: PT/OT eval & treat. 8. DVT prophylaxis: Heparin 5000 units sq bid to start tonight, had small amount of gas in subcutaneous area to left of ventral hernia, Heparin can be given farther out from umbilicus and do not have to renally dose. 9. CODE STATUS: FULL. - Mortality Measure Prognosis:: Poor
[2020-08-20] MEDS: Gabapentin 100 MG Cap PO SCH ×2 (11:40→20:16)
[2020-08-20] MEDS: metroNIDAZOLE/Normal Saline 500 MG in Premix Bag 1 BAG IV SCH ×2 (12:47→20:05)
--- NOTE | 2020-08-20 12:59 | CT ---
INDICATION: Question perinephric abscess. Fever, chills, elevated white blood count, diarrhea. CT ABDOMEN AND PELVIS WITHOUT CONTRAST [id number]: Spiral 2 1/2 mm axial sections were obtained through the abdomen and pelvis with sagittal and coronal reconstructions 08/20/20 and compared with 04/23/08. Total exam DLP was 784.25 mGy - cm. The lower lung monsalve and pleural spaces visualized appeared fairly normal. The heart appears to be within normal limits in size with coronary artery calcifications. No pericardial effusion was seen. Calcifications are noted in the abdominal aorta, celiac axis, superior mesenteric artery with what appear to be stents in proximal renal arteries, with calcifications also noted in the iliac and femoral arteries. A moderately large supra and infra umbilical hernia is noted which includes transverse colon and small bowel loops without definite obstructive process. The opening of the hernia is large. The hernia measured approximately 13 cm transversely by 4 cm AP diameter with an opening of approximately 3 cm. Hypertrophic degenerative changes and disc disease are noted throughout the thoracolumbosacral spine. A small renal calculus is noted, most likely in a calyx of the upper middle pole of the right kidney with no other renal calculus. Renal fascial thickening is noted with renal cortical scarring and some thinning of the renal cortices bilaterally. No definite obstructive uropathy was seen. Thickening of the wall of the urinary bladder is noted with indistinct borders suggesting perivesicular inflammation and cystitis. There are at least two moderately sized calculus present in the urinary bladder which measure on the order of 15 mm for one of the calculi and approximately 11 mm for another of the calculi. Multiple smaller calculi are suggested. Multiple calcifications are also noted in the prostate, which is moderately prominent in size, but does not seem to be impinging on the floor of the bladder to any extent. The gallbladder is again noted to be absent compatible with cholecystectomy. There is noted fat-stranding, pericolonic, at the ascending colon raising question of a colitis in that area. What appears to be the appendix appeared normal visualized on axial images 98 through 118. No evidence of free air was noted intraperitoneally. There were some air bubbles in the anterior abdominal wall subcutaneous fat which could be on the basis of infection or possibly injection sites to the left of midline seen on axial images 88 and 93. No additional organomegaly, mass lesions, or free fluid collections were identified. The liver, adrenal glands, spleen with multiple splenules suggested, and pancreas were unremarkable except for note of some fatty replacement of the pancreas most prominently in the head and proximal body area. There does appear to be a calcification in the area of the head of the pancreas, but this likely is arterial in nature. No definite retroperitoneal mass was seen. Retroperitoneal lymphadenopathy is noted which may be reactive to infection. It is nonspecific, however. IMPRESSION: 1. Cystitis with urinary bladder calculi. The inflammatory process appears to be involving perivesical fat. 2. Renal cortical scarring and thinning with one renal calculus of small size on the right, but no obstructive uropathy. 3. Possible colitis with pericolonic inflammation. In this age group ischemic colitis would be a consideration. 4. Ventral hernia with a partial loop of transverse colon and loops of small bowel present, but no definite obstructive process. 5. ASD. No significant aneurysmal dilatation of the aorta. 6. ASHD. 7. Hypertrophic degenerative changes and disc disease thoracolumbosacral spine. 8. Descending and sigmoid diverticulosis without evidence of diverticulitis. Report was called to Dr. Mendosa at 1137 hours 08/20/20. [facility]
[2020-08-20] MEDS: Acetaminophen 325 MG Tab PO PRN ×2 (14:25→20:16)
[2020-08-20] MEDS: cefTRIAXone 1 GM Vial IVPUSH SCH (20:03)
[2020-08-20] MEDS: Febuxostat 40 MG Tab PO SCH (20:14)
[2020-08-20] MEDS: Heparin Sodium 5,000 Units/ML Vial SUBCUT SCH (20:14)
[2020-08-20] MEDS: Montelukast 10 MG Tab PO SCH (20:15)
[2020-08-20] MEDS: Finasteride 5 MG Tab PO SCH (20:15)
[2020-08-20] MEDS: Tamsulosin 0.4 MG Cap.ER PO SCH (20:15)
[2020-08-20] MEDS: atorvaSTATin 20 MG Tab PO SCH (20:15)
[2020-08-21] MEDS: metroNIDAZOLE/Normal Saline 500 MG in Premix Bag 1 BAG IV SCH ×3 (03:47→20:04)
[2020-08-21] MEDS: Pantoprazole 40 MG Tab.CR PO SCH (06:34)
[2020-08-21] MEDS: Levothyroxine 100 MCG Tab PO SCH (06:34)
[2020-08-21] MEDS: Sodium Chloride 0.9% 1,000 ML IV SCH ×2 (08:50→20:04)
[2020-08-21] MEDS: Losartan 25 MG Tab PO SCH (09:15)
[2020-08-21] MEDS: Fluticasone Propionate Nasal Spray 16 GM Bottle NASBOTH SCH ×2 (09:16→20:07)
[2020-08-21] MEDS: Saccharomyces Boulardii (Probiotic) 250 MG Cap PO SCH ×2 (09:17→20:07)
[2020-08-21] MEDS: Heparin Sodium 5,000 Units/ML Vial SUBCUT SCH ×2 (09:18→20:07)
[2020-08-21] MEDS: Tiotropium Bromide 4 GM Inhalation Spray (2.5mcg/1 dose; 10 doses) INH SCH (09:19)
[2020-08-21] MEDS: Albuterol 8 GM Inhaler INH SCH (09:20)
[2020-08-21] MEDS: Sertraline 50 MG Tab PO SCH (09:21)
[2020-08-21] MEDS: Gabapentin 100 MG Cap PO SCH ×2 (09:28→20:07)
[2020-08-21] MEDS: Dexamethasone 4 MG Tab PO SCH (10:31)
--- NOTE | 2020-08-21 12:08 | PCM.PN ---
- General Info Date of Service: 08/21/20 Subjective Update: Angel has been afebrile since 1600 yesterday, lactic acid came down after adding metronidazole for colitis. Still having watery diarrhea, C diff was negative, stool culture, ova/parasite are still pending. Denies any abdominal pain, dry cough. Require oxygen therapy yesterday but weaned off today. CXR was negative. Has had low blood sugars, not eating very well as he left his dentures at home. Held his glipizide. Received 1 dose of Imodium when obstruction was ruled out but not continued as he had evidence of colitis on CT yesterday. States his feet do not hurt today. - Patient Data Vitals - Most Recent: Last Vital Signs Temp 99.1 F 08/21/20 08:00 Pulse 73 08/20/20 23:50 Resp 18 08/21/20 08:00 BP 105/66 08/21/20 09:15 Pulse Ox 97 08/21/20 11:37 Weight - Most Recent: 180 lb 12.8 oz I&O - Last 24 Hours: Intake & Output 08/20/20 08/21/20 08/21/20 22:59 06:59 14:59 Intake Total 1157 925 Balance 1157 925 Lab Results Last 24 Hours: Laboratory Results - last 24 hr 08/20/20 08/20/20 08/20/20 Range/Units 12:20 15:50 17:20 WBC (3.2-10.1) x10-3/uL RBC (3.90-5.90) x10(6)uL Hgb (12.9-17.7) g/dL Hct (38.3-50.1) % MCV (80.8-98.7) fL MCH (27.0-33.3) pg MCHC (28.7-35.3) g/dL RDW (12.4-15.0) % Plt Count (117-477) x10(3)uL MPV (6.7-11.0) fL Add Manual Diff Neutrophils % (Manual) (46-82) % Band Neutrophils % (0-6) % Lymphocytes % (Manual) (13-37) % Monocytes % (Manual) (4-12) % Metamyelocytes % (0-0) % Sodium (135-145) mmol/L Potassium (3.5-5.3) mmol/L Chloride (100-110) mmol/L Carbon Dioxide (21-32) mmol/L BUN (7-18) mg/dL Creatinine (0.70-1.30) mg/dL Est Cr Clr Drug Dosing mL/min Estimated GFR (MDRD) (>60) BUN/Creatinine Ratio (9-20) Glucose (80-116) mg/dL POC Glucose 48 L* (80-116) mg/dL Lactic Acid 3.1 H* 2.1 H* (0.4-2.0) mmol/L Calcium (8.6-10.2) mg/dL 08/20/20 08/20/20 08/21/20 Range/Units 20:12 21:28 02:44 WBC (3.2-10.1) x10-3/uL RBC (3.90-5.90) x10(6)uL Hgb (12.9-17.7) g/dL Hct (38.3-50.1) % MCV (80.8-98.7) fL MCH (27.0-33.3) pg MCHC (28.7-35.3) g/dL RDW (12.4-15.0) % Plt Count (117-477) x10(3)uL MPV (6.7-11.0) fL Add Manual Diff Neutrophils % (Manual) (46-82) % Band Neutrophils % (0-6) % Lymphocytes % (Manual) (13-37) % Monocytes % (Manual) (4-12) % Metamyelocytes % (0-0) % Sodium (135-145) mmol/L Potassium (3.5-5.3) mmol/L Chloride (100-110) mmol/L Carbon Dioxide (21-32) mmol/L BUN (7-18) mg/dL Creatinine (0.70-1.30) mg/dL Est Cr Clr Drug Dosing mL/min Estimated GFR (MDRD) (>60) BUN/Creatinine Ratio (9-20) Glucose (80-116) mg/dL POC Glucose 49 L* 91 77 L (80-116) mg/dL Lactic Acid (0.4-2.0) mmol/L Calcium (8.6-10.2) mg/dL 08/21/20 08/21/20 08/21/20 Range/Units 06:05 06:05 06:32 WBC 13.9 H (3.2-10.1) x10-3/uL RBC 3.89 L (3.90-5.90) x10(6)uL Hgb 12.1 L (12.9-17.7) g/dL Hct 37.6 L (38.3-50.1) % MCV 96.5 (80.8-98.7) fL MCH 31.1 (27.0-33.3) pg MCHC 32.2 (28.7-35.3) g/dL RDW 14.4 (12.4-15.0) % Plt Count 140 (117-477) x10(3)uL MPV 9.9 (6.7-11.0) fL Add Manual Diff Yes Neutrophils % (Manual) 56 (46-82) % Band Neutrophils % 14 H (0-6) % Lymphocytes % (Manual) 20 (13-37) % Monocytes % (Manual) 8 (4-12) % Metamyelocytes % 2 H (0-0) % Sodium 144 (135-145) mmol/L Potassium 3.7 (3.5-5.3) mmol/L Chloride 109 (100-110) mmol/L Carbon Dioxide 25 (21-32) mmol/L BUN 50 H (7-18) mg/dL Creatinine 3.0 H* (0.70-1.30) mg/dL Est Cr Clr Drug Dosing 15.35 mL/min Estimated GFR (MDRD) 20 L (>60) BUN/Creatinine Ratio 16.7 (9-20) Glucose 98 (80-116) mg/dL POC Glucose 95 (80-116) mg/dL Lactic Acid (0.4-2.0) mmol/L Calcium 8.2 L (8.6-10.2) mg/dL 08/21/20 Range/Units 11:21 WBC (3.2-10.1) x10-3/uL RBC (3.90-5.90) x10(6)uL Hgb (12.9-17.7) g/dL Hct (38.3-50.1) % MCV (80.8-98.7) fL MCH (27.0-33.3) pg MCHC (28.7-35.3) g/dL RDW (12.4-15.0) % Plt Count (117-477) x10(3)uL MPV (6.7-11.0) fL Add Manual Diff Neutrophils % (Manual) (46-82) % Band Neutrophils % (0-6) % Lymphocytes % (Manual) (13-37) % Monocytes % (Manual) (4-12) % Metamyelocytes % (0-0) % Sodium (135-145) mmol/L Potassium (3.5-5.3) mmol/L Chloride (100-110) mmol/L Carbon Dioxide (21-32) mmol/L BUN (7-18) mg/dL Creatinine (0.70-1.30) mg/dL Est Cr Clr Drug Dosing mL/min Estimated GFR (MDRD) (>60) BUN/Creatinine Ratio (9-20) Glucose (80-116) mg/dL POC Glucose 94 (80-116) mg/dL Lactic Acid (0.4-2.0) mmol/L Calcium (8.6-10.2) mg/dL Michael Results Last 24 Hours: Microbiology 08/19/20 19:20 Aerobic Blood Culture - Preliminary Blood - Venous NO GROWTH AFTER 1 DAY Anaerobic Blood Culture - Preliminary NO GROWTH AFTER 1 DAY 08/19/20 19:26 Aerobic Blood Culture - Preliminary Blood - Venous - Lab Draw NO GROWTH AFTER 1 DAY Anaerobic Blood Culture - Preliminary NO GROWTH AFTER 1 DAY Med Orders - Current: Current Medications Acetaminophen (Acetaminophen 325 Mg Tab) 650 mg PO Q4H PRN PRN Reason: Pain (Mild 1-3)/fever Last Admin: 08/20/20 20:16 Dose: 650 mg Documented by: Hydrocodone Bitart/Acetaminophen (Acetaminophen/Hydrocodone 325-5 Mg Tab) 1 tab PO Q4H PRN PRN Reason: Pain (moderate 4-6) Albuterol (Albuterol 8 Gm Inhaler) 0 gm INH DAILY [facility] Last Admin: 08/21/20 09:20 Dose: 2 puff Documented by: Albuterol (Albuterol 8 Gm Inhaler) 0 gm INH Q6H PRN PRN Reason: SHORTNESS OF BREATH Atorvastatin Calcium (Atorvastatin 20 Mg Tab) 20 mg PO BEDTIME [facility] Last Admin: 08/20/20 20:15 Dose: 20 mg Documented by: Ceftriaxone Sodium (Ceftriaxone 1 Gm Vial) 1 gm IVPUSH Q24H [facility] Last Admin: 08/20/20 20:03 Dose: 1 gm Documented by: Dexamethasone (Dexamethasone 4 Mg Tab) 4 mg PO DAILY [facility] Stop: 08/24/20 09:46 Last Admin: 08/21/20 10:31 Dose: 4 mg Documented by: Febuxostat (Febuxostat 40 Mg Tab) 40 mg PO BEDTIME [facility] Last Admin: 08/20/20 20:14 Dose: 40 mg Documented by: Finasteride (Finasteride 5 Mg Tab) 5 mg PO BEDTIME [facility] Last Admin: 08/20/20 20:15 Dose: 5 mg Documented by: Fluticasone Propionate (Fluticasone Propionate Nasal [place] 16 Gm Bottle) 0 gm NASBOTH BID [facility] Last Admin: 08/21/20 09:16 Dose: 2 spray Documented by: Gabapentin (Gabapentin 100 Mg Cap) 200 mg PO BEDTIME [facility] Gabapentin (Gabapentin 100 Mg Cap) 200 mg PO BID [facility] Stop: 08/22/20 21:01 Last Admin: 08/21/20 09:28 Dose: 200 mg Documented by: Heparin Sodium (Porcine) (Heparin Sodium 5,000 Units/Ml Vial) 5,000 units SUBCUT Q12H [facility] Last Admin: 08/21/20 09:18 Dose: 5,000 units Documented by: Sodium Chloride (Normal Saline) 1,000 mls @ 125 mls/hr IV ASDIRECTED [facility] Last Admin: 08/21/20 08:50 Dose: 125 mls/hr Documented by: Metronidazole 500 mg/ Premix 100 mls @ 100 mls/hr IV Q8H [facility] Last Admin: 08/21/20 03:47 Dose: 100 mls/hr Documented by: Levothyroxine Sodium (Levothyroxine 100 Mcg Tab) 100 mcg PO ACBREAKFAST [facility] Last Admin: 08/21/20 06:34 Dose: 100 mcg Documented by: Losartan Potassium (Losartan 25 Mg Tab) 25 mg PO DAILY [facility] Last Admin: 08/21/20 09:15 Dose: 25 mg Documented by: Montelukast Sodium (Montelukast 10 Mg Tab) 10 mg PO BEDTIME [facility] Last Admin: 08/20/20 20:15 Dose: 10 mg Documented by: Ondansetron HCl (Ondansetron 4 Mg/2 Ml Sdv) 4 mg IV Q4H PRN PRN Reason: Nausea/Vomiting Pantoprazole Sodium (Pantoprazole 40 Mg Tab.Cr) 40 mg PO ACBREAKFAST [facility] Last Admin: 08/21/20 06:34 Dose: 40 mg Documented by: Saccharomyces Boulardii (Saccharomyces Boulardii (Probiotic) 250 Mg Cap) 250 mg PO BID [facility] Last Admin: 08/21/20 09:17 Dose: 250 mg Documented by: Senna/Docusate Sodium (Docusate Sodium/Sennosides 50-8.6 Mg Tab) 1 tab PO BID PRN PRN Reason: Constipation Sertraline HCl (Sertraline 50 Mg Tab) 50 mg PO DAILY [facility] Last Admin: 08/21/20 09:21 Dose: 50 mg Documented by: Sodium Chloride (Sodium Chloride 0.9% 10 Ml Syringe) 10 ml FLUSH ASDIRECTED PRN PRN Reason: Keep Vein Open Tamsulosin HCl (Tamsulosin 0.4 Mg Cap.Er) 0.4 mg PO BEDTIME [facility] Last Admin: 08/20/20 20:15 Dose: 0.4 mg Documented by: Tiotropium [place] (Tiotropium [place] 4 Gm Inhalation [place] (2.5mcg/1 Dose; 10 Doses)) 2 gm INH DAILY [facility] Last Admin: 08/21/20 09:19 Dose: 2 puff Documented by: Discontinued Medications Acetaminophen (Acetaminophen 500 Mg Tab) 1,000 mg PO ONETIME ONE Stop: 08/19/20 19:21 Last Admin: 08/19/20 19:27 Dose: 1,000 mg Documented by: Albuterol (Albuterol 8 Gm Inhaler) 0 gm INH Q6H PRN PRN Reason: Shortness of Breath Ceftriaxone Sodium (Ceftriaxone 1 Gm Vial) 1 gm IVPUSH NOW STA Stop: 08/19/20 20:55 Last Admin: 08/19/20 20:57 Dose: 1 gm Documented by: Enoxaparin Sodium (Enoxaparin 30 Mg/0.3 Ml Syringe) 30 mg SUBCUT Q24H [facility] Last Admin: 08/19/20 21:49 Dose: 30 mg Documented by: Gabapentin (Gabapentin 300 Mg Cap) 300 mg PO ONETIME ONE Stop: 08/19/20 19:46 Last Admin: 08/19/20 20:14 Dose: 300 mg Documented by: Glipizide (Glipizide 5 Mg Tab) 5 mg PO ACBREAKFAST [facility] Last Admin: 08/20/20 08:31 Dose: 5 mg Documented by: Sodium Chloride (Normal Saline) 1,000 mls @ 999 mls/hr IV ASDIRECTED [facility] Stop: 08/19/20 20:45 Last Admin: 08/19/20 20:05 Dose: 999 mls/hr Documented by: Ketorolac Tromethamine (Ketorolac 30 Mg/Ml Sdv) 30 mg IVPUSH ONETIME ONE Stop: 08/19/20 19:46 Last Admin: 08/19/20 20:19 Dose: Not Given Documented by: Loperamide HCl (Loperamide 2 Mg Cap) 2 mg PO ONETIME ONE Stop: 08/20/20 11:18 Last Admin: 08/20/20 11:35 Dose: 2 mg Documented by: Morphine Sulfate (Morphine 2 Mg/Ml Syringe) 2 mg IVPUSH NOW STA Stop: 08/19/20 19:54 Last Admin: 08/19/20 20:16 Dose: 2 mg Documented by: Non-Formulary Medication ([place] Concentrate Capsule) 1 cap PO DAILY [facility] Saccharomyces Boulardii (Saccharomyces Boulardii (Probiotic) 250 Mg Cap) 500 mg PO BID [facility] - Exam General: Alert, Oriented, Cooperative, No Acute Distress Lungs: Clear to Auscultation, Normal Respiratory Effort, Decreased Breath Sounds (bibasilar). No: Crackles, Wheezing Cardiovascular: Regular Rate, Regular Rhythm, Murmurs GI/Abdominal Exam: Normal Bowel Sounds, Soft, Non-Tender, No Distention, Other (large ventral hernia, soft, NT, BS present) Extremities: Pedal Edema (trace BLE), Pallor Peripheral Pulses: 2+: Radial (L), Radial (R) - Patient Data Lab Results Last 24 hrs: Laboratory Results - last 24 hr 08/20/20 08/20/20 08/20/20 Range/Units 12:20 15:50 17:20 WBC (3.2-10.1) x10-3/uL RBC (3.90-5.90) x10(6)uL Hgb (12.9-17.7) g/dL Hct (38.3-50.1) % MCV (80.8-98.7) fL MCH (27.0-33.3) pg MCHC (28.7-35.3) g/dL RDW (12.4-15.0) % Plt Count (117-477) x10(3)uL MPV (6.7-11.0) fL Add Manual Diff Neutrophils % (Manual) (46-82) % Band Neutrophils % (0-6) % Lymphocytes % (Manual) (13-37) % Monocytes % (Manual) (4-12) % Metamyelocytes % (0-0) % Sodium (135-145) mmol/L Potassium (3.5-5.3) mmol/L Chloride (100-110) mmol/L Carbon Dioxide (21-32) mmol/L BUN (7-18) mg/dL Creatinine (0.70-1.30) mg/dL Est Cr Clr Drug Dosing mL/min Estimated GFR (MDRD) (>60) BUN/Creatinine Ratio (9-20) Glucose (80-116) mg/dL POC Glucose 48 L* (80-116) mg/dL Lactic Acid 3.1 H* 2.1 H* (0.4-2.0) mmol/L Calcium (8.6-10.2) mg/dL 08/20/20 08/20/20 08/21/20 Range/Units 20:12 21:28 02:44 WBC (3.2-10.1) x10-3/uL RBC (3.90-5.90) x10(6)uL Hgb (12.9-17.7) g/dL Hct (38.3-50.1) % MCV (80.8-98.7) fL MCH (27.0-33.3) pg MCHC (28.7-35.3) g/dL RDW (12.4-15.0) % Plt Count (117-477) x10(3)uL MPV (6.7-11.0) fL Add Manual Diff Neutrophils % (Manual) (46-82) % Band Neutrophils % (0-6) % Lymphocytes % (Manual) (13-37) % Monocytes % (Manual) (4-12) % Metamyelocytes % (0-0) % Sodium (135-145) mmol/L Potassium (3.5-5.3) mmol/L Chloride (100-110) mmol/L Carbon Dioxide (21-32) mmol/L BUN (7-18) mg/dL Creatinine (0.70-1.30) mg/dL Est Cr Clr Drug Dosing mL/min Estimated GFR (MDRD) (>60) BUN/Creatinine Ratio (9-20) Glucose (80-116) mg/dL POC Glucose 49 L* 91 77 L (80-116) mg/dL Lactic Acid (0.4-2.0) mmol/L Calcium (8.6-10.2) mg/dL 08/21/20 08/21/20 08/21/20 Range/Units 06:05 06:05 06:32 WBC 13.9 H (3.2-10.1) x10-3/uL RBC 3.89 L (3.90-5.90) x10(6)uL Hgb 12.1 L (12.9-17.7) g/dL Hct 37.6 L (38.3-50.1) % MCV 96.5 (80.8-98.7) fL MCH 31.1 (27.0-33.3) pg MCHC 32.2 (28.7-35.3) g/dL RDW 14.4 (12.4-15.0) % Plt Count 140 (117-477) x10(3)uL MPV 9.9 (6.7-11.0) fL Add Manual Diff Yes Neutrophils % (Manual) 56 (46-82) % Band Neutrophils % 14 H (0-6) % Lymphocytes % (Manual) 20 (13-37) % Monocytes % (Manual) 8 (4-12) % Metamyelocytes % 2 H (0-0) % Sodium 144 (135-145) mmol/L Potassium 3.7 (3.5-5.3) mmol/L Chloride 109 (100-110) mmol/L Carbon Dioxide 25 (21-32) mmol/L BUN 50 H (7-18) mg/dL Creatinine 3.0 H* (0.70-1.30) mg/dL Est Cr Clr Drug Dosing 15.35 mL/min Estimated GFR (MDRD) 20 L (>60) BUN/Creatinine Ratio 16.7 (9-20) Glucose 98 (80-116) mg/dL POC Glucose 95 (80-116) mg/dL Lactic Acid (0.4-2.0) mmol/L Calcium 8.2 L (8.6-10.2) mg/dL 08/21/20 Range/Units 11:21 WBC (3.2-10.1) x10-3/uL RBC (3.90-5.90) x10(6)uL Hgb (12.9-17.7) g/dL Hct (38.3-50.1) % MCV (80.8-98.7) fL MCH (27.0-33.3) pg MCHC (28.7-35.3) g/dL RDW (12.4-15.0) % Plt Count (117-477) x10(3)uL MPV (6.7-11.0) fL Add Manual Diff Neutrophils % (Manual) (46-82) % Band Neutrophils % (0-6) % Lymphocytes % (Manual) (13-37) % Monocytes % (Manual) (4-12) % Metamyelocytes % (0-0) % Sodium (135-145) mmol/L Potassium (3.5-5.3) mmol/L Chloride (100-110) mmol/L Carbon Dioxide (21-32) mmol/L BUN (7-18) mg/dL Creatinine (0.70-1.30) mg/dL Est Cr Clr Drug Dosing mL/min Estimated GFR (MDRD) (>60) BUN/Creatinine Ratio (9-20) Glucose (80-116) mg/dL POC Glucose 94 (80-116) mg/dL Lactic Acid (0.4-2.0) mmol/L Calcium (8.6-10.2) mg/dL Result Diagrams: 08/21/20 06:05 08/21/20 06:05 Michael Results Last 24 hrs: Microbiology 08/19/20 19:20 Aerobic Blood Culture - Preliminary Blood - Venous NO GROWTH AFTER 1 DAY Anaerobic Blood Culture - Preliminary NO GROWTH AFTER 1 DAY 08/19/20 19:26 Aerobic Blood Culture - Preliminary Blood - Venous - Lab Draw NO GROWTH AFTER 1 DAY Anaerobic Blood Culture - Preliminary NO GROWTH AFTER 1 DAY Sepsis Event Note - Evaluation Sepsis Screening Result: No Definite Risk - Focused Exam Vital Signs: Vital Signs Temp Resp BP BP Pulse Ox Pulse Ox 08/21/20 11:37 97 08/21/20 09:15 105/66 06/19/21 08:00 99.1 F 18 98 - Problem List & Annotations (1) Sepsis SNOMED Code(s): 71804145 Code(s): A41.9 - SEPSIS, UNSPECIFIED ORGANISM Status: Resolved Current Visit: No Qualifiers: Sepsis acute organ dysfunction status: with acute organ dysfunction Severe sepsis acute organ dysfunction type: acute renal failure Severe sepsis shock status: without septic shock (2) Colitis SNOMED Code(s): 52852274 Code(s): K52.9 - NONINFECTIVE GASTROENTERITIS AND COLITIS, UNSPECIFIED Status: Acute Current Visit: Yes (3) UTI (urinary tract infection) SNOMED Code(s): 10619715 Code(s): N39.0 - URINARY TRACT INFECTION, SITE NOT SPECIFIED Status: Acute Current Visit: No (4) TIERNEY (acute kidney injury) SNOMED Code(s): 66867902, 80578108 Code(s): N17.9 - ACUTE KIDNEY FAILURE, UNSPECIFIED Status: Acute Current Visit: No Annotation/Comment:: improving (5) Fall SNOMED Code(s): 2156367, 332278415 Code(s): W19.XXXA - UNSPECIFIED FALL, INITIAL ENCOUNTER Status: Acute Current Visit: Yes (6) Dehydration SNOMED Code(s): 70717579 Code(s): E86.0 - DEHYDRATION Status: Acute Current Visit: No (7) Weakness SNOMED Code(s): 02167113 Code(s): R53.1 - WEAKNESS Status: Acute Current Visit: No (8) Chronic renal disease SNOMED Code(s): 603254684 Code(s): N18.9 - CHRONIC KIDNEY DISEASE, UNSPECIFIED Status: Chronic Current Visit: No Qualifiers: Chronic kidney disease stage: unspecified stage Qualified Code(s): N18.9 - Chronic kidney disease, unspecified (9) Diabetes mellitus SNOMED Code(s): 47435544 Code(s): E11.9 - TYPE 2 DIABETES MELLITUS WITHOUT COMPLICATIONS Status: Chronic Current Visit: No Qualifiers: Diabetes mellitus type: type 2 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 Sepsis/UTI/Colitis: Sepsis resolved. WBC 13.9, with 14% bands this morning. Adjust treatments as necessary. Repeat labs in am, blood culture: no growth to date, urine culture pending. Rocephin day 3, Metronidazole day 2. Stool culture & ova/parasite pending. Repeat labs tomorrow. 2. Acute on chronic renal failure: Decrease NS at 75 ml/hr, continue to monitor. Renal adjustment of his home medication, reduced Gabapentin to 200 mg tid x 3 days then will decrease to 200 mg at bedtime. 3. DM: Discontinued Glipizide, AccuChecks qidac&hs. 4. Weakness/fall: PT/OT eval & treat.
[2020-08-21] MEDS: cefTRIAXone 1 GM Vial IVPUSH SCH (20:03)
[2020-08-21] MEDS: Febuxostat 40 MG Tab PO SCH (20:07)
[2020-08-21] MEDS: atorvaSTATin 20 MG Tab PO SCH (20:07)
[2020-08-21] MEDS: Sodium Chloride 0.9% 10 ML Syringe FLUSH PRN (20:07)
[2020-08-21] MEDS: Finasteride 5 MG Tab PO SCH (20:07)
[2020-08-21] MEDS: Montelukast 10 MG Tab PO SCH (20:07)
[2020-08-21] MEDS: Tamsulosin 0.4 MG Cap.ER PO SCH (20:07)
[2020-08-22] MEDS: metroNIDAZOLE/Normal Saline 500 MG in Premix Bag 1 BAG IV SCH ×3 (03:38→20:00)
[2020-08-22] MEDS: Pantoprazole 40 MG Tab.CR PO SCH (06:31)
[2020-08-22] MEDS: Levothyroxine 100 MCG Tab PO SCH (06:31)
[2020-08-22] MEDS: Gabapentin 100 MG Cap PO SCH ×2 (08:47→20:03)
[2020-08-22] MEDS: Dexamethasone 4 MG Tab PO SCH (08:49)
[2020-08-22] MEDS: Sertraline 50 MG Tab PO SCH (08:50)
[2020-08-22] MEDS: Losartan 25 MG Tab PO SCH (08:51)
[2020-08-22] MEDS: Fluticasone Propionate Nasal Spray 16 GM Bottle NASBOTH SCH ×2 (08:52→20:02)
[2020-08-22] MEDS: Saccharomyces Boulardii (Probiotic) 250 MG Cap PO SCH ×2 (08:53→20:03)
[2020-08-22] MEDS: Tiotropium Bromide 4 GM Inhalation Spray (2.5mcg/1 dose; 10 doses) INH SCH (08:53)
[2020-08-22] MEDS: Albuterol 8 GM Inhaler INH PRN (08:54)
[2020-08-22] MEDS: Albuterol 8 GM Inhaler INH SCH (08:55)
[2020-08-22] MEDS: Heparin Sodium 5,000 Units/ML Vial SUBCUT SCH ×2 (08:57→20:02)
[2020-08-22] MEDS: Acetaminophen 325 MG Tab PO PRN ×2 (10:42→20:03)
--- NOTE | 2020-08-22 14:47 | PCM.PN ---
- General Info Date of Service: 08/22/20 Subjective Update: Angel is feeling better up in the chair. Hungry, has his dentures now. Diarrhea is more soft/loose now, green in color, frequency has decreased. Denies any foot pain or abdominal pain. Drinking well per nursing. - Patient Data Vitals - Most Recent: Last Vital Signs Temp 94.8 F L 08/22/20 12:00 Pulse 64 08/22/20 12:00 Resp 18 08/22/20 12:00 BP 148/78 H 08/22/20 12:00 Pulse Ox 93 L 08/22/20 12:00 Weight - Most Recent: 180 lb 12.8 oz I&O - Last 24 Hours: Intake & Output 08/21/20 08/22/20 08/22/20 22:59 06:59 14:59 Intake Total 635 599 720 Balance 635 599 720 Lab Results Last 24 Hours: Laboratory Results - last 24 hr 08/21/20 08/21/20 08/22/20 Range/Units 16:56 21:01 06:07 WBC (3.2-10.1) x10-3/uL RBC (3.90-5.90) x10(6)uL Hgb (12.9-17.7) g/dL Hct (38.3-50.1) % MCV (80.8-98.7) fL MCH (27.0-33.3) pg MCHC (28.7-35.3) g/dL RDW (12.4-15.0) % Plt Count (117-477) x10(3)uL MPV (6.7-11.0) fL Add Manual Diff Neutrophils % (Manual) (46-82) % Band Neutrophils % (0-6) % Lymphocytes % (Manual) (13-37) % Monocytes % (Manual) (4-12) % Metamyelocytes % (0-0) % Sodium (135-145) mmol/L Potassium (3.5-5.3) mmol/L Chloride (100-110) mmol/L Carbon Dioxide (21-32) mmol/L BUN (7-18) mg/dL Creatinine (0.70-1.30) mg/dL Est Cr Clr Drug Dosing mL/min Estimated GFR (MDRD) (>60) BUN/Creatinine Ratio (9-20) Glucose (80-116) mg/dL POC Glucose 172 H 198 H 152 H (80-116) mg/dL Calcium (8.6-10.2) mg/dL 08/22/20 08/22/20 08/22/20 Range/Units 06:10 06:10 11:06 WBC 14.9 H (3.2-10.1) x10-3/uL RBC 4.14 (3.90-5.90) x10(6)uL Hgb 12.6 L (12.9-17.7) g/dL Hct 39.6 (38.3-50.1) % MCV 95.8 (80.8-98.7) fL MCH 30.5 (27.0-33.3) pg MCHC 31.9 (28.7-35.3) g/dL RDW 13.8 (12.4-15.0) % Plt Count 182 (117-477) x10(3)uL MPV 10.3 (6.7-11.0) fL Add Manual Diff Yes Neutrophils % (Manual) 60 (46-82) % Band Neutrophils % 13 H (0-6) % Lymphocytes % (Manual) 17 (13-37) % Monocytes % (Manual) 9 (4-12) % Metamyelocytes % 1 H (0-0) % Sodium 146 H (135-145) mmol/L Potassium 4.2 (3.5-5.3) mmol/L Chloride 112 H (100-110) mmol/L Carbon Dioxide 22 (21-32) mmol/L BUN 51 H (7-18) mg/dL Creatinine 2.5 H* (0.70-1.30) mg/dL Est Cr Clr Drug Dosing 18.42 mL/min Estimated GFR (MDRD) 25 L (>60) BUN/Creatinine Ratio 20.4 H (9-20) Glucose 173 H (80-116) mg/dL POC Glucose 177 H (80-116) mg/dL Calcium 8.6 (8.6-10.2) mg/dL Michael Results Last 24 Hours: Microbiology 08/19/20 20:05 Urine Culture - Final Urine, Clean Catch Streptococcus Milleri Group 08/19/20 19:26 Aerobic Blood Culture - Preliminary Blood - Venous - Lab Draw NO GROWTH AFTER 2 DAYS Anaerobic Blood Culture - Preliminary NO GROWTH AFTER 2 DAYS 08/19/20 19:20 Aerobic Blood Culture - Preliminary Blood - Venous NO GROWTH AFTER 2 DAYS Anaerobic Blood Culture - Preliminary NO GROWTH AFTER 2 DAYS Med Orders - Current: Current Medications Acetaminophen (Acetaminophen 325 Mg Tab) 650 mg PO Q4H PRN PRN Reason: Pain (Mild 1-3)/fever Last Admin: 08/22/20 10:42 Dose: 650 mg Documented by: Hydrocodone Bitart/Acetaminophen (Acetaminophen/Hydrocodone 325-5 Mg Tab) 1 tab PO Q4H PRN PRN Reason: Pain (moderate 4-6) Albuterol (Albuterol 8 Gm Inhaler) 0 gm INH DAILY [facility] Last Admin: 08/22/20 08:55 Dose: 2 puff Documented by: Albuterol (Albuterol 8 Gm Inhaler) 0 gm INH Q6H PRN PRN Reason: SHORTNESS OF BREATH Atorvastatin Calcium (Atorvastatin 20 Mg Tab) 20 mg PO BEDTIME [facility] Last Admin: 08/21/20 20:07 Dose: 20 mg Documented by: Ceftriaxone Sodium (Ceftriaxone 1 Gm Vial) 1 gm IVPUSH Q24H [facility] Last Admin: 08/21/20 20:03 Dose: 1 gm Documented by: Dexamethasone (Dexamethasone 4 Mg Tab) 4 mg PO DAILY [facility] Stop: 08/24/20 09:46 Last Admin: 08/22/20 08:49 Dose: 4 mg Documented by: Febuxostat (Febuxostat 40 Mg Tab) 40 mg PO BEDTIME [facility] Last Admin: 08/21/20 20:07 Dose: 40 mg Documented by: Finasteride (Finasteride 5 Mg Tab) 5 mg PO BEDTIME [facility] Last Admin: 08/21/20 20:07 Dose: 5 mg Documented by: Fluticasone Propionate (Fluticasone Propionate Nasal [place] 16 Gm Bottle) 0 gm NASBOTH BID [facility] Last Admin: 08/22/20 08:52 Dose: 2 spray Documented by: Gabapentin (Gabapentin 100 Mg Cap) 200 mg PO BEDTIME [facility] Gabapentin (Gabapentin 100 Mg Cap) 200 mg PO BID [facility] Stop: 08/22/20 21:01 Last Admin: 08/22/20 08:47 Dose: 200 mg Documented by: Heparin Sodium (Porcine) (Heparin Sodium 5,000 Units/Ml Vial) 5,000 units SUBCUT Q12H [facility] Last Admin: 08/22/20 08:57 Dose: 5,000 units Documented by: Sodium Chloride (Normal Saline) 1,000 mls @ 75 mls/hr IV ASDIRECTED [facility] Last Admin: 08/21/20 20:04 Dose: 75 mls/hr Documented by: Metronidazole 500 mg/ Premix 100 mls @ 100 mls/hr IV Q8H [facility] Last Admin: 08/22/20 12:08 Dose: 100 mls/hr Documented by: Levothyroxine Sodium (Levothyroxine 100 Mcg Tab) 100 mcg PO ACBREAKFAST [facility] Last Admin: 08/22/20 06:31 Dose: 100 mcg Documented by: Losartan Potassium (Losartan 25 Mg Tab) 25 mg PO DAILY [facility] Last Admin: 08/22/20 08:51 Dose: 25 mg Documented by: Montelukast Sodium (Montelukast 10 Mg Tab) 10 mg PO BEDTIME [facility] Last Admin: 08/21/20 20:07 Dose: 10 mg Documented by: Ondansetron HCl (Ondansetron 4 Mg/2 Ml Sdv) 4 mg IV Q4H PRN PRN Reason: Nausea/Vomiting Pantoprazole Sodium (Pantoprazole 40 Mg Tab.Cr) 40 mg PO ACBREAKFAST [facility] Last Admin: 08/22/20 06:31 Dose: 40 mg Documented by: Saccharomyces Boulardii (Saccharomyces Boulardii (Probiotic) 250 Mg Cap) 250 mg PO BID [facility] Last Admin: 08/22/20 08:53 Dose: 250 mg Documented by: Senna/Docusate Sodium (Docusate Sodium/Sennosides 50-8.6 Mg Tab) 1 tab PO BID PRN PRN Reason: Constipation Sertraline HCl (Sertraline 50 Mg Tab) 50 mg PO DAILY [facility] Last Admin: 08/22/20 08:50 Dose: 50 mg Documented by: Sodium Chloride (Sodium Chloride 0.9% 10 Ml Syringe) 10 ml FLUSH ASDIRECTED PRN PRN Reason: Keep Vein Open Last Admin: 08/21/20 20:07 Dose: 10 ml Documented by: Tamsulosin HCl (Tamsulosin 0.4 Mg Cap.Er) 0.4 mg PO BEDTIME [facility] Last Admin: 08/21/20 20:07 Dose: 0.4 mg Documented by: Tiotropium [place] (Tiotropium [place] 4 Gm Inhalation [place] (2.5mcg/1 Dose; 10 Doses)) 2 gm INH DAILY [facility] Last Admin: 08/22/20 08:53 Dose: 2 puff Documented by: Discontinued Medications Acetaminophen (Acetaminophen 500 Mg Tab) 1,000 mg PO ONETIME ONE Stop: 08/19/20 19:21 Last Admin: 08/19/20 19:27 Dose: 1,000 mg Documented by: Albuterol (Albuterol 8 Gm Inhaler) 0 gm INH Q6H PRN PRN Reason: Shortness of Breath Ceftriaxone Sodium (Ceftriaxone 1 Gm Vial) 1 gm IVPUSH NOW STA Stop: 08/19/20 20:55 Last Admin: 08/19/20 20:57 Dose: 1 gm Documented by: Enoxaparin Sodium (Enoxaparin 30 Mg/0.3 Ml Syringe) 30 mg SUBCUT Q24H [facility] Last Admin: 08/19/20 21:49 Dose: 30 mg Documented by: Gabapentin (Gabapentin 300 Mg Cap) 300 mg PO ONETIME ONE Stop: 08/19/20 19:46 Last Admin: 08/19/20 20:14 Dose: 300 mg Documented by: Glipizide (Glipizide 5 Mg Tab) 5 mg PO ACBREAKFAST [facility] Last Admin: 08/20/20 08:31 Dose: 5 mg Documented by: Sodium Chloride (Normal Saline) 1,000 mls @ 999 mls/hr IV ASDIRECTED [facility] Stop: 08/19/20 20:45 Last Admin: 08/19/20 20:05 Dose: 999 mls/hr Documented by: Ketorolac Tromethamine (Ketorolac 30 Mg/Ml Sdv) 30 mg IVPUSH ONETIME ONE Stop: 08/19/20 19:46 Last Admin: 08/19/20 20:19 Dose: Not Given Documented by: Loperamide HCl (Loperamide 2 Mg Cap) 2 mg PO ONETIME ONE Stop: 08/20/20 11:18 Last Admin: 08/20/20 11:35 Dose: 2 mg Documented by: Morphine Sulfate (Morphine 2 Mg/Ml Syringe) 2 mg IVPUSH NOW STA Stop: 08/19/20 19:54 Last Admin: 08/19/20 20:16 Dose: 2 mg Documented by: Non-Formulary Medication ([place] Concentrate Capsule) 1 cap PO DAILY [facility] Saccharomyces Boulardii (Saccharomyces Boulardii (Probiotic) 250 Mg Cap) 500 mg PO BID [place]AR[place] - Exam General: Alert, Oriented, Cooperative, No Acute Distress Lungs: Clear to Auscultation, Normal Respiratory Effort, Decreased Breath Sounds (bibasilar). No: Crackles, Wheezing Cardiovascular: Regular Rate, Regular Rhythm GI/Abdominal Exam: Normal Bowel Sounds, Soft, Non-Tender, No Distention Extremities: Pedal Edema (trace BLE) - Patient Data Lab Results Last 24 hrs: Laboratory Results - last 24 hr 08/21/20 08/21/20 08/22/20 Range/Units 16:56 21:01 06:07 WBC (3.2-10.1) x10-3/uL RBC (3.90-5.90) x10(6)uL Hgb (12.9-17.7) g/dL Hct (38.3-50.1) % MCV (80.8-98.7) fL MCH (27.0-33.3) pg MCHC (28.7-35.3) g/dL RDW (12.4-15.0) % Plt Count (117-477) x10(3)uL MPV (6.7-11.0) fL Add Manual Diff Neutrophils % (Manual) (46-82) % Band Neutrophils % (0-6) % Lymphocytes % (Manual) (13-37) % Monocytes % (Manual) (4-12) % Metamyelocytes % (0-0) % Sodium (135-145) mmol/L Potassium (3.5-5.3) mmol/L Chloride (100-110) mmol/L Carbon Dioxide (21-32) mmol/L BUN (7-18) mg/dL Creatinine (0.70-1.30) mg/dL Est Cr Clr Drug Dosing mL/min Estimated GFR (MDRD) (>60) BUN/Creatinine Ratio (9-20) Glucose (80-116) mg/dL POC Glucose 172 H 198 H 152 H (80-116) mg/dL Calcium (8.6-10.2) mg/dL 08/22/20 08/22/20 08/22/20 Range/Units 06:10 06:10 11:06 WBC 14.9 H (3.2-10.1) x10-3/uL RBC 4.14 (3.90-5.90) x10(6)uL Hgb 12.6 L (12.9-17.7) g/dL Hct 39.6 (38.3-50.1) % MCV 95.8 (80.8-98.7) fL MCH 30.5 (27.0-33.3) pg MCHC 31.9 (28.7-35.3) g/dL RDW 13.8 (12.4-15.0) % Plt Count 182 (117-477) x10(3)uL MPV 10.3 (6.7-11.0) fL Add Manual Diff Yes Neutrophils % (Manual) 60 (46-82) % Band Neutrophils % 13 H (0-6) % Lymphocytes % (Manual) 17 (13-37) % Monocytes % (Manual) 9 (4-12) % Metamyelocytes % 1 H (0-0) % Sodium 146 H (135-145) mmol/L Potassium 4.2 (3.5-5.3) mmol/L Chloride 112 H (100-110) mmol/L Carbon Dioxide 22 (21-32) mmol/L BUN 51 H (7-18) mg/dL Creatinine 2.5 H* (0.70-1.30) mg/dL Est Cr Clr Drug Dosing 18.42 mL/min Estimated GFR (MDRD) 25 L (>60) BUN/Creatinine Ratio 20.4 H (9-20) Glucose 173 H (80-116) mg/dL POC Glucose 177 H (80-116) mg/dL Calcium 8.6 (8.6-10.2) mg/dL Result Diagrams: 08/22/20 06:10 08/22/20 06:10 Michael Results Last 24 hrs: Microbiology 08/19/20 20:05 Urine Culture - Final Urine, Clean Catch Streptococcus Milleri Group 08/19/20 19:26 Aerobic Blood Culture - Preliminary Blood - Venous - Lab Draw NO GROWTH AFTER 2 DAYS Anaerobic Blood Culture - Preliminary NO GROWTH AFTER 2 DAYS 08/19/20 19:20 Aerobic Blood Culture - Preliminary Blood - Venous NO GROWTH AFTER 2 DAYS Anaerobic Blood Culture - Preliminary NO GROWTH AFTER 2 DAYS Sepsis Event Note - Evaluation Sepsis Screening Result: No Definite Risk - Focused Exam Vital Signs: Vital Signs Temp Temp Pulse Resp BP BP Pulse Ox 08/22/20 12:00 94.8 F L 64 18 148/78 H 93 L 08/22/20 08:51 160/73 H 08/22/20 08:00 93.8 F L 63 18 160/73 H 95 08/22/20 06:31 154/72 H 08/22/20 04:00 97.4 F 59 L 22 H 168/74 H 94 L - Problem List & Annotations (1) Colitis SNOMED Code(s): 00473397 Code(s): K52.9 - NONINFECTIVE GASTROENTERITIS AND COLITIS, UNSPECIFIED Status: Acute Current Visit: Yes (2) UTI (urinary tract infection) SNOMED Code(s): 07894135 Code(s): N39.0 - URINARY TRACT INFECTION, SITE NOT SPECIFIED Status: Acute Current Visit: No Qualifiers: Urinary tract infection type: acute cystitis (3) TIERNEY (acute kidney injury) SNOMED Code(s): 45796868, 48481909 Code(s): N17.9 - ACUTE KIDNEY FAILURE, UNSPECIFIED Status: Acute Current Visit: No Annotation/Comment:: back down to baseline (4) Fall SNOMED Code(s): 4987432, 834873026 Code(s): W19.XXXA - UNSPECIFIED FALL, INITIAL ENCOUNTER Status: Acute Current Visit: Yes (5) Dehydration SNOMED Code(s): 38924159 Code(s): E86.0 - DEHYDRATION Status: Resolved Current Visit: No (6) Weakness SNOMED Code(s): 45179446 Code(s): R53.1 - WEAKNESS Status: Acute Current Visit: No (7) Chronic renal disease SNOMED Code(s): 688385310 Code(s): N18.9 - CHRONIC KIDNEY DISEASE, UNSPECIFIED Status: Chronic Current Visit: No Qualifiers: Chronic kidney disease stage: unspecified stage Qualified Code(s): N18.9 - Chronic kidney disease, unspecified (8) Diabetes mellitus SNOMED Code(s): 97662053 Code(s): E11.9 - TYPE 2 DIABETES MELLITUS WITHOUT COMPLICATIONS Status: Chronic Current Visit: No Qualifiers: Diabetes mellitus type: type 2 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 Sepsis/UTI/Colitis: Sepsis resolved. WBC 14.9, with 13% bands this morning, expected with addition of Dexamethasone yesterday. Stools improving with treatment. Repeat labs in am, blood culture: no growth to date, urine culture strep. Rocephin day 4, Metronidazole day 3. Stool culture & ova/parasite pending. Repeat labs tomorrow. 2. Acute on chronic renal failure: Saline lock. Encourage oral intake. Will continue to monitor and adjust treatments as necessary. 3. DM: Discontinued Glipizide, AccuChecks qidac&hs. BS are elevated after starting Dexamethasone. Will monitor & adjust as his diet improves. 4. Weakness/fall: PT/OT eval & treat tomorrow.
[2020-08-22] MEDS: cefTRIAXone 1 GM Vial IVPUSH SCH (19:58)
[2020-08-22] MEDS: Montelukast 10 MG Tab PO SCH (20:02)
[2020-08-22] MEDS: Febuxostat 40 MG Tab PO SCH (20:02)
[2020-08-22] MEDS: atorvaSTATin 20 MG Tab PO SCH (20:02)
[2020-08-22] MEDS: Tamsulosin 0.4 MG Cap.ER PO SCH (20:02)
[2020-08-22] MEDS: Finasteride 5 MG Tab PO SCH (20:03)
[2020-08-23] MEDS: Albuterol 8 GM Inhaler INH PRN ×2 (00:41→08:56)
[2020-08-23] MEDS: metroNIDAZOLE/Normal Saline 500 MG in Premix Bag 1 BAG IV SCH (04:33)
[2020-08-23] MEDS: Levothyroxine 100 MCG Tab PO SCH (06:34)
[2020-08-23] MEDS: Pantoprazole 40 MG Tab.CR PO SCH (06:34)
--- NOTE | 2020-08-23 08:26 | PCM.PN ---
- General Info Date of Service: 08/23/20 Subjective Update: Angel states his diarrhea is slowing down, nursing reported that it is firming up more. He states he didn't sleep much last night due to someone playing music. Denies any shortness of breath, abdominal pain, nausea, vomiting or dysuria. Denies any foot pain. Still has dry cough. Desaturated last night so oxygen was placed but in 90s on room air this morning. - Patient Data Vitals - Most Recent: Last Vital Signs Temp 97.7 F 08/23/20 00:00 Pulse 76 08/23/20 04:00 Resp 24 H 08/23/20 04:00 BP 160/79 H 08/23/20 04:00 Pulse Ox 91 L 08/23/20 04:00 Weight - Most Recent: 185 lb 0.32 oz I&O - Last 24 Hours: Intake & Output 08/22/20 08/23/20 08/23/20 22:59 06:59 14:59 Intake Total 490 125 Balance 490 125 Lab Results Last 24 Hours: Laboratory Results - last 24 hr 08/22/20 08/22/20 08/22/20 Range/Units 06:10 11:06 17:15 Neutrophils % (Manual) 60 (46-82) % Band Neutrophils % 13 H (0-6) % Lymphocytes % (Manual) 17 (13-37) % Monocytes % (Manual) 9 (4-12) % Metamyelocytes % 1 H (0-0) % POC Glucose 177 H 194 H (80-116) mg/dL 08/22/20 08/23/20 Range/Units 21:16 06:32 Neutrophils % (Manual) (46-82) % Band Neutrophils % (0-6) % Lymphocytes % (Manual) (13-37) % Monocytes % (Manual) (4-12) % Metamyelocytes % (0-0) % POC Glucose 195 H 147 H (80-116) mg/dL Michael Results Last 24 Hours: Microbiology 08/19/20 19:20 Aerobic Blood Culture - Preliminary Blood - Venous NO GROWTH AFTER 3 DAYS Anaerobic Blood Culture - Preliminary NO GROWTH AFTER 3 DAYS 08/19/20 19:26 Aerobic Blood Culture - Preliminary Blood - Venous - Lab Draw NO GROWTH AFTER 3 DAYS Anaerobic Blood Culture - Preliminary NO GROWTH AFTER 3 DAYS Med Orders - Current: Current Medications Acetaminophen (Acetaminophen 325 Mg Tab) 650 mg PO Q4H PRN PRN Reason: Pain (Mild 1-3)/fever Last Admin: 08/22/20 20:03 Dose: 650 mg Documented by: Albuterol (Albuterol 8 Gm Inhaler) 0 gm INH DAILY [facility] Last Admin: 08/22/20 08:55 Dose: 2 puff Documented by: Albuterol (Albuterol 8 Gm Inhaler) 0 gm INH Q6H PRN PRN Reason: SHORTNESS OF BREATH Last Admin: 08/23/20 00:41 Dose: 2 puff Documented by: Atorvastatin Calcium (Atorvastatin 20 Mg Tab) 20 mg PO BEDTIME [facility] Last Admin: 08/22/20 20:02 Dose: 20 mg Documented by: Cefdinir (Cefdinir 300 Mg Cap) 300 mg PO BEDTIME [facility] Dexamethasone (Dexamethasone 4 Mg Tab) 4 mg PO DAILY [facility] Stop: 08/23/20 09:46 Last Admin: 08/22/20 08:49 Dose: 4 mg Documented by: Febuxostat (Febuxostat 40 Mg Tab) 40 mg PO BEDTIME [facility] Last Admin: 08/22/20 20:02 Dose: 40 mg Documented by: Finasteride (Finasteride 5 Mg Tab) 5 mg PO BEDTIME [facility] Last Admin: 08/22/20 20:03 Dose: 5 mg Documented by: Fluticasone Propionate (Fluticasone Propionate Nasal [place] 16 Gm Bottle) 0 gm NASBOTH BID [facility] Last Admin: 08/22/20 20:02 Dose: 2 spray Documented by: Gabapentin (Gabapentin 100 Mg Cap) 200 mg PO BEDTIME [facility] Glipizide (Glipizide 5 Mg Tab) 5 mg PO ACBREAKFAST [facility] Heparin Sodium (Porcine) (Heparin Sodium 5,000 Units/Ml Vial) 5,000 units SUBCUT Q12H [facility] Last Admin: 08/22/20 20:02 Dose: 5,000 units Documented by: Sodium Chloride (Normal Saline) 1,000 mls @ 75 mls/hr IV ASDIRECTED [facility] Last Admin: 08/21/20 20:04 Dose: 75 mls/hr Documented by: Levothyroxine Sodium (Levothyroxine 100 Mcg Tab) 100 mcg PO ACBREAKFAST [facility] Last Admin: 08/23/20 06:34 Dose: 100 mcg Documented by: Losartan Potassium (Losartan 25 Mg Tab) 25 mg PO DAILY [facility] Last Admin: 08/22/20 08:51 Dose: 25 mg Documented by: Metronidazole (Metronidazole 500 Mg Tab) 500 mg PO TID [facility] Montelukast Sodium (Montelukast 10 Mg Tab) 10 mg PO BEDTIME [facility] Last Admin: 08/22/20 20:02 Dose: 10 mg Documented by: Ondansetron HCl (Ondansetron 4 Mg/2 Ml Sdv) 4 mg IV Q4H PRN PRN Reason: Nausea/Vomiting Pantoprazole Sodium (Pantoprazole 40 Mg Tab.Cr) 40 mg PO ACBREAKFAST [facility] Last Admin: 08/23/20 06:34 Dose: 40 mg Documented by: Saccharomyces Boulardii (Saccharomyces Boulardii (Probiotic) 250 Mg Cap) 250 mg PO BID [facility] Last Admin: 08/22/20 20:03 Dose: 250 mg Documented by: Senna/Docusate Sodium (Docusate Sodium/Sennosides 50-8.6 Mg Tab) 1 tab PO BID PRN PRN Reason: Constipation Sertraline HCl (Sertraline 50 Mg Tab) 50 mg PO DAILY [facility] Last Admin: 08/22/20 08:50 Dose: 50 mg Documented by: Sodium Chloride (Sodium Chloride 0.9% 10 Ml Syringe) 10 ml FLUSH ASDIRECTED PRN PRN Reason: Keep Vein Open Last Admin: 08/21/20 20:07 Dose: 10 ml Documented by: Tamsulosin HCl (Tamsulosin 0.4 Mg Cap.Er) 0.4 mg PO BEDTIME [facility] Last Admin: 08/22/20 20:02 Dose: 0.4 mg Documented by: Tiotropium [place] (Tiotropium [place] 4 Gm Inhalation [place] (2.5mcg/1 Dose; 10 Doses)) 2 gm INH DAILY [facility] Last Admin: 08/22/20 08:53 Dose: 2 puff Documented by: Discontinued Medications Acetaminophen (Acetaminophen 500 Mg Tab) 1,000 mg PO ONETIME ONE Stop: 08/19/20 19:21 Last Admin: 08/19/20 19:27 Dose: 1,000 mg Documented by: Hydrocodone Bitart/Acetaminophen (Acetaminophen/Hydrocodone 325-5 Mg Tab) 1 tab PO Q4H PRN PRN Reason: Pain (moderate 4-6) Albuterol (Albuterol 8 Gm Inhaler) 0 gm INH Q6H PRN PRN Reason: Shortness of Breath Ceftriaxone Sodium (Ceftriaxone 1 Gm Vial) 1 gm IVPUSH Q24H [facility] Last Admin: 08/22/20 19:58 Dose: 1 gm Documented by: Ceftriaxone Sodium (Ceftriaxone 1 Gm Vial) 1 gm IVPUSH NOW STA Stop: 08/19/20 20:55 Last Admin: 08/19/20 20:57 Dose: 1 gm Documented by: Enoxaparin Sodium (Enoxaparin 30 Mg/0.3 Ml Syringe) 30 mg SUBCUT Q24H [facility] Last Admin: 08/19/20 21:49 Dose: 30 mg Documented by: Gabapentin (Gabapentin 300 Mg Cap) 300 mg PO ONETIME ONE Stop: 08/19/20 19:46 Last Admin: 08/19/20 20:14 Dose: 300 mg Documented by: Gabapentin (Gabapentin 100 Mg Cap) 200 mg PO BID [facility] Stop: 08/22/20 21:01 Last Admin: 08/22/20 20:03 Dose: 200 mg Documented by: Glipizide (Glipizide 5 Mg Tab) 5 mg PO ACBREAKFAST [facility] Last Admin: 08/20/20 08:31 Dose: 5 mg Documented by: Sodium Chloride (Normal Saline) 1,000 mls @ 999 mls/hr IV ASDIRECTED [facility] Stop: 08/19/20 20:45 Last Admin: 08/19/20 20:05 Dose: 999 mls/hr Documented by: Metronidazole 500 mg/ Premix 100 mls @ 100 mls/hr IV Q8H [facility] Last Admin: 08/23/20 04:33 Dose: 100 mls/hr Documented by: Ketorolac Tromethamine (Ketorolac 30 Mg/Ml Sdv) 30 mg IVPUSH ONETIME ONE Stop: 08/19/20 19:46 Last Admin: 08/19/20 20:19 Dose: Not Given Documented by: Loperamide HCl (Loperamide 2 Mg Cap) 2 mg PO ONETIME ONE Stop: 08/20/20 11:18 Last Admin: 08/20/20 11:35 Dose: 2 mg Documented by: Morphine Sulfate (Morphine 2 Mg/Ml Syringe) 2 mg IVPUSH NOW STA Stop: 08/19/20 19:54 Last Admin: 08/19/20 20:16 Dose: 2 mg Documented by: Non-Formulary Medication ([place]der[place] Concentrate Capsule) 1 cap PO DAILY [facility] Saccharomyces Boulardii (Saccharomyces Boulardii (Probiotic) 250 Mg Cap) 500 mg PO BID [facility] - Exam General: Alert, Oriented, Cooperative, No Acute Distress Lungs: Clear to Auscultation, Normal Respiratory Effort, Decreased Breath Sounds (bibasilar). No: Crackles, Wheezing Cardiovascular: Regular Rate, Regular Rhythm, Murmurs GI/Abdominal Exam: Normal Bowel Sounds, Soft, Non-Tender, No Distention Extremities: Pedal Edema (1+ BLE) Peripheral Pulses: 2+: Radial (L), Radial (R) - Patient Data Lab Results Last 24 hrs: Laboratory Results - last 24 hr 08/22/20 08/22/20 08/22/20 Range/Units 06:10 11:06 17:15 Neutrophils % (Manual) 60 (46-82) % Band Neutrophils % 13 H (0-6) % Lymphocytes % (Manual) 17 (13-37) % Monocytes % (Manual) 9 (4-12) % Metamyelocytes % 1 H (0-0) % POC Glucose 177 H 194 H (80-116) mg/dL 08/22/20 08/23/20 Range/Units 21:16 06:32 Neutrophils % (Manual) (46-82) % Band Neutrophils % (0-6) % Lymphocytes % (Manual) (13-37) % Monocytes % (Manual) (4-12) % Metamyelocytes % (0-0) % POC Glucose 195 H 147 H (80-116) mg/dL Result Diagrams: 08/22/20 06:10 08/22/20 06:10 Michael Results Last 24 hrs: Microbiology 08/19/20 19:20 Aerobic Blood Culture - Preliminary Blood - Venous NO GROWTH AFTER 3 DAYS Anaerobic Blood Culture - Preliminary NO GROWTH AFTER 3 DAYS 08/19/20 19:26 Aerobic Blood Culture - Preliminary Blood - Venous - Lab Draw NO GROWTH AFTER 3 DAYS Anaerobic Blood Culture - Preliminary NO GROWTH AFTER 3 DAYS Sepsis Event Note - Evaluation Sepsis Screening Result: No Definite Risk - Focused Exam Vital Signs: Vital Signs Temp Pulse Resp BP Pulse Ox 08/23/20 04:00 76 24 H 160/79 H 91 L 08/23/20 00:00 97.7 F 67 18 152/76 H 90 L 08/22/20 21:40 160/80 H 08/22/20 21:00 94 L - Problem List & Annotations (1) Colitis SNOMED Code(s): 15408871 Code(s): K52.9 - NONINFECTIVE GASTROENTERITIS AND COLITIS, UNSPECIFIED Status: Acute Current Visit: Yes (2) UTI (urinary tract infection) SNOMED Code(s): 14986570 Code(s): N39.0 - URINARY TRACT INFECTION, SITE NOT SPECIFIED Status: Acute Current Visit: No Qualifiers: Urinary tract infection type: acute cystitis (3) Fall SNOMED Code(s): 9723417, 059483503 Code(s): W19.XXXA - UNSPECIFIED FALL, INITIAL ENCOUNTER Status: Acute Current Visit: Yes (4) Weakness SNOMED Code(s): 83477796 Code(s): R53.1 - WEAKNESS Status: Acute Current Visit: No (5) Chronic renal disease SNOMED Code(s): 515058104 Code(s): N18.9 - CHRONIC KIDNEY DISEASE, UNSPECIFIED Status: Chronic Current Visit: No Qualifiers: Chronic kidney disease stage: unspecified stage Qualified Code(s): N18.9 - Chronic kidney disease, unspecified (6) Diabetes mellitus SNOMED Code(s): 93396886 Code(s): E11.9 - TYPE 2 DIABETES MELLITUS WITHOUT COMPLICATIONS Status: Chronic Current Visit: No Qualifiers: Diabetes mellitus type: type 2 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 (7) Sepsis SNOMED Code(s): 95233414 Code(s): A41.9 - SEPSIS, UNSPECIFIED ORGANISM Status: Resolved Current Visit: No Qualifiers: Sepsis acute organ dysfunction status: with acute organ dysfunction Severe sepsis acute organ dysfunction type: acute renal failure Severe sepsis shock status: without septic shock (8) Dehydration SNOMED Code(s): 15055615 Code(s): E86.0 - DEHYDRATION Status: Resolved Current Visit: No (9) TIERNEY (acute kidney injury) SNOMED Code(s): 26072789, 34511740 Code(s): N17.9 - ACUTE KIDNEY FAILURE, UNSPECIFIED Status: Resolved Current Visit: No Annotation/Comment:: back down to baseline - Problem List Review Problem List Initiated/Reviewed/Updated: Yes - My Orders Last 24 Hours: My Active Orders 08/23/20 07:48 BASIC METABOLIC PANEL,BMP [CHEM] Routine CBC WITH AUTO DIFF [HEME] Routine 08/23/20 08:00 glipiZIDE [Glucotrol] 5 mg PO ACBREAKFAST 08/23/20 14:00 metroNIDAZOLE [Flagyl] 500 mg PO TID 08/23/20 21:00 Cefdinir [Omnicef] 300 mg PO BEDTIME Gabapentin [Neurontin] 200 mg PO BEDTIME - Plan Plan:: 1. Sepsis/UTI/Colitis: WBC pending. Stools improving with treatment. Blood culture: no growth to date, urine culture strep. Rocephin 4 doses, Metronidazole day 4, change to orals to make sure tolerating. Omnicef 300 mg at bedtime. Metronidazole to oral. Stool culture & ova/parasite pending. 2. Acute on chronic renal failure: Saline lock. Encourage oral intake. Will continue to monitor and adjust treatments as necessary. 3. DM: restarted Glipizide, AccuChecks qidac&hs. Will monitor & adjust as his diet improves. 4. Weakness/fall: PT/OT eval & treat today. 5. Discharge: anticipate home tomorrow if tolerates oral antibiotics and continues improving.
[2020-08-23] MEDS: Heparin Sodium 5,000 Units/ML Vial SUBCUT SCH ×2 (08:52→21:45)
[2020-08-23] MEDS: Tiotropium Bromide 4 GM Inhalation Spray (2.5mcg/1 dose; 10 doses) INH SCH (08:52)
[2020-08-23] MEDS: Sertraline 50 MG Tab PO SCH (08:55)
[2020-08-23] MEDS: Saccharomyces Boulardii (Probiotic) 250 MG Cap PO SCH ×2 (08:55→21:45)
[2020-08-23] MEDS: Fluticasone Propionate Nasal Spray 16 GM Bottle NASBOTH SCH ×2 (08:56→21:44)
[2020-08-23] MEDS: Losartan 25 MG Tab PO SCH (08:59)
[2020-08-23] MEDS: Albuterol 8 GM Inhaler INH SCH (09:00)
[2020-08-23] MEDS: glipiZIDE 5 MG Tab PO SCH (09:05)
[2020-08-23] MEDS: Dexamethasone 4 MG Tab PO SCH (10:48)
[2020-08-23] MEDS: metroNIDAZOLE 500 MG Tab PO SCH ×2 (13:54→21:43)
[2020-08-23] MEDS: Sodium Chloride 0.9% 10 ML Syringe FLUSH PRN (13:55)
[2020-08-23] MEDS ORDERED: Gabapentin 100 MG Cap PO SCH (21:00)
[2020-08-23] MEDS ORDERED: Cefdinir 300 MG Cap PO SCH (21:00)
[2020-08-23] MEDS: Tamsulosin 0.4 MG Cap.ER PO SCH (21:44)
[2020-08-23] MEDS: atorvaSTATin 20 MG Tab PO SCH (21:46)
[2020-08-23] MEDS: Febuxostat 40 MG Tab PO SCH (21:47)
[2020-08-23] MEDS: Montelukast 10 MG Tab PO SCH (21:48)
[2020-08-23] MEDS: Finasteride 5 MG Tab PO SCH (21:49)
[2020-08-24] MEDS: Pantoprazole 40 MG Tab.CR PO SCH (06:33)
[2020-08-24] MEDS: Levothyroxine 100 MCG Tab PO SCH (06:33)
[2020-08-24] MEDS: glipiZIDE 5 MG Tab PO SCH (06:34)
[2020-08-24] MEDS: Albuterol 8 GM Inhaler INH SCH (08:35)
[2020-08-24] MEDS: Tiotropium Bromide 4 GM Inhalation Spray (2.5mcg/1 dose; 10 doses) INH SCH (08:35)
[2020-08-24] MEDS: metroNIDAZOLE 500 MG Tab PO SCH (08:40)
[2020-08-24] MEDS: Losartan 25 MG Tab PO SCH (08:40)
[2020-08-24] MEDS: Fluticasone Propionate Nasal Spray 16 GM Bottle NASBOTH SCH (08:41)
[2020-08-24] MEDS: Saccharomyces Boulardii (Probiotic) 250 MG Cap PO SCH (08:41)
[2020-08-24] MEDS: Heparin Sodium 5,000 Units/ML Vial SUBCUT SCH (08:42)
[2020-08-24] MEDS: Sertraline 50 MG Tab PO SCH (08:44)
[2020-08-24 08:45] VITALS: BP 156/71
[2020-08-24 10:28] VITALS: PULSE 61
--- NOTE | 2020-08-24 17:20 | PCM.DCSUM1 ---
Discharge Summary - Hospital Course HPI Initial Comments: Angel presented to [facility] yesterday evening by ambulance for bilateral foot pain, 12/12. Had fall x 2 once yesterday and once on Sunday. Had been having fever and dry cough for 2-3 days, diarrhea that started yesterday morning. Temp in ER was 102.9F. Normally has 1 bowel movement a day, formed. Denies any shortness of breath, chest pain, abdominal pain, nausea or vomiting. Denied any frequency, dysuria or hematuria. Stated to ER physician that Gabapentin didn't seem to help his foot pain. History of Type 2 Diabetes on glipizide, cholecystectomy, has abdominal incision. Unaware of any hernias. He is hard of hearing and has upper & lower dentures. He is resident of [facility] in [place], [place]. ER Course: WBC 19.6, Cr 3.4, Lactic acid 2.5, repeat 2.5 & 2.3, CRP 6.5. Chest x-ray was negative for acute process. UA was positive for large leukocyte esterase, few epithelial cells, many bacteria. Given 1 dose of Rocephin in ER, NS 1 L bolus then at 125 ml/hr. Covid negative. C. Difficile negative. Abdomen/pelvis CT without contrast ordered for this morning. Diagnosis: Stroke: No - Discharge Data Discharge Date: 08/24/20 Discharge Disposition: Home, W Home Health Agency 06 Condition: Good - Referral to Home Health Date of Face to Face Encounter: 08/24/20 Reason for Homebound Status: limited mobility Primary Care Physician: PCP None Skilled Need: halfway: assessment, teaching and medication management. - Discharge Diagnosis/Problem(s) (1) Colitis SNOMED Code(s): 03157346 ICD Code: K52.9 - NONINFECTIVE GASTROENTERITIS AND COLITIS, UNSPECIFIED Status: Acute (2) UTI (urinary tract infection) SNOMED Code(s): 81086472 ICD Code: N39.0 - URINARY TRACT INFECTION, SITE NOT SPECIFIED Status: Acute Qualifiers: Urinary tract infection type: acute cystitis (3) Fall SNOMED Code(s): 7631091, 859205172 ICD Code: W19.XXXA - UNSPECIFIED FALL, INITIAL ENCOUNTER Status: Acute (4) Weakness SNOMED Code(s): 72559900 ICD Code: R53.1 - WEAKNESS Status: Acute (5) Chronic renal disease SNOMED Code(s): 644790811 ICD Code: N18.9 - CHRONIC KIDNEY DISEASE, UNSPECIFIED Status: Chronic Qualifiers: Chronic kidney disease stage: unspecified stage Qualified Code(s): N18.9 - Chronic kidney disease, unspecified (6) Diabetes mellitus SNOMED Code(s): 10955593 ICD Code: E11.9 - TYPE 2 DIABETES MELLITUS WITHOUT COMPLICATIONS Status: Chronic Qualifiers: Diabetes mellitus type: type 2 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 (7) Sepsis SNOMED Code(s): 86975164 ICD Code: A41.9 - SEPSIS, UNSPECIFIED ORGANISM Status: Resolved Qualifiers: Sepsis acute organ dysfunction status: with acute organ dysfunction Severe sepsis acute organ dysfunction type: acute renal failure Severe sepsis shock status: without septic shock (8) Dehydration SNOMED Code(s): 20538713 ICD Code: E86.0 - DEHYDRATION Status: Resolved (9) TIERENY (acute kidney injury) SNOMED Code(s): 01552561, 81228028 ICD Code: N17.9 - ACUTE KIDNEY FAILURE, UNSPECIFIED Status: Resolved Problem Details: back down to baseline - Patient Summary/Data Consults: Consultations 08/23/20 10:18 OT Evaluation and Treatment [CONS] Routine Please Evaluate and Treat. OT Reason for Consult: ADL's This query below is only for informational purposes and is not editable. Admission Diagnosis/Problem: Urosepsis PT Evaluation and Treatment [CONS] Routine Please Evaluate and Treat. PT Reason for Consult: Ambulation This query below is only for informational purposes and is not editable. Admission Diagnosis/Problem: Urosepsis Hospital Course: Angel was admitted for severe sepsis with acute renal failure, UTI on admission, WBC on admission was 19.6, up to 21.0 on 08/20 with 21% bands. His lactic acid was 2.5, 2.3, 3.1, 2.1 on reflex testing. He initially had Rocephin in ER, repeat lactic acid at noon 08/20 was [address].1[address] After getting CT abdomen/pelvis results (08/20) that showed colitis, large ventral hernia, cystitis, added Met ronidazole every 8 hours. Next reflex lactic acid was 2.1 which did not reflex for further testing. He had perfuse diarrhea initially, had not shown signs of obstruction so received 1 dose of Imodium while awaiting CT report. Dexamethasone 4 mg daily x 3 days started on 08/21 after found to have colitis. His stools improved with treatment. His glipizide was discontinued due to low blood sugars initially. His dentures had been left at home and someone was not able to bring them until Sunday so his oral intake was low prior to this even with giving him a soft diet. After Dexamethasone & oral intake improved, his blood sugars went up to 198 so restarted glipizide at his home dose. On discharge his blood sugar was 95. He received IVF for acute renal failure secondary to sepsis and dehydration, Cr improved from 3.5 to 2.4 on day of discharge. He was saline locked on Sunday, sodium slowly went up even with saline lock, most likely side effect from Dexamethasone. His WBC went down to 13.9, then after Dexamethasone was added his WBC trend 14.9, 19.2 and then 18.8 today but his bands continued to improve and were 1% 08/23. He was switched from Rocephin & metronidazole IV to omnicef 300 mg at bedtime and Metronidazole po tid on 08/23, tolerated this well and will go home with 7 more days of treatment. He was switched from Lovenox to Heparin to avoid his large ventral hernia as it can be given further out from umbilicus and do not have to renally adjust. His Gabapentin was also decreased from 200 mg tid to bid for 3 days then at bedtime for his kidney function. His case fitter at [facility] stated he as been on this since Oct 2016 for anxiety, depression, neuropathy. He did not receive any [place] or pain medication since admission to floor as he was not complaining of foot pain. He tolerated reduced dose of Gabepentin with no increase of anxiety or change in mood. He did have some auditory hallucinations Sunday pm/Sunday am where he stated he was hearing music but none was playing in his room or hallway, he may need reevaluation with [facility] as outpatient. PT/OT evaluated for fall, they did not pick him up for inpatient treatment, did not recommend outpatient treatment at this time. Follow up with Eleazar Clemons at [facility] on Sunday. - Patient Instructions Diet: Diabetic Diet Activity: As Tolerated Driving: Do Not Drive Showering/Bathing: May Shower Notify Provider of: Fever, Increased Pain, Swelling and Redness, Nausea and/or Vomiting Other/Special Instructions: Follow up with Eleazar Clemons PA-C on August 27 for hospital follow up. Gabapentin dose decreased for kidney function, if increased anxiety, Mr Clemons can titrate to symptom control, do not exceed 700 mg/day. Cefdinir 300 mg at bedtime for 7 days. Metronidazole 500 mg three times a day(every 8 hours) for 7 days. - Discharge Plan *PRESCRIPTION DRUG MONITORING PROGRAM REVIEWED*: Not Applicable *COPY OF PRESCRIPTION DRUG MONITORING REPORT IN PATIENT JESSICA: Not Applicable Prescriptions/Med Rec: metroNIDAZOLE [Flagyl] 500 mg PO TID 7 Days #21 tablet Saccharomyces Boulardii [Florastor] 250 mg PO BID 7 Days #14 cap Gabapentin [Neurontin] 200 mg PO BEDTIME 30 Days #30 cap Cefdinir [Omnicef] 300 mg PO BEDTIME 7 Days #7 cap Home Medications: Home Meds Albuterol Sulfate [Proventil Hfa] 2 puff INH Q6H PRN 02/29/16 [History] Diclofenac Sodium [Voltaren 1% Gel] 1 applic TOP BID PRN 02/29/16 [History] Finasteride [Proscar] 5 mg PO BEDTIME 02/29/16 [History] Fluticasone Propionate [Flonase] 2 sprays NASBOTH BID 02/29/16 [History] Losartan [Cozaar] 25 mg PO DAILY 02/29/16 [History] Montelukast [Singulair] 10 mg PO BEDTIME 02/29/16 [History] glipiZIDE [Glucotrol] 5 mg PO ACBREAKFAST 02/29/16 [History] Acetaminophen [Tylenol] 650 mg PO Q6H PRN 03/01/16 [History] Aspirin [Ecotrin EC] 81 mg PO DAILY 03/01/16 [History] Balderas Concentrate Capsule 1 cap PO DAILY 03/01/16 [History] Furosemide [Lasix] 20 mg PO DAILY 03/01/16 [History] atorvaSTATin [Lipitor] 20 mg PO BEDTIME 03/01/16 [History] Febuxostat [Uloric] 40 mg PO BEDTIME 11/12/16 [History] Tiotropium [Spiriva HandiHaler] 18 mcg INH DAILY 12/01/16 [History] .Miconazole 2% Powder 1 applic TOP ASDIRECTED PRN 08/19/20 [History] Albuterol Sulfate [Albuterol Sulfate Hfa] 2 puff INH DAILY 08/19/20 [History] Levothyroxine [Synthroid] 100 mcg PO ACBREAKFAST 08/19/20 [History] Omeprazole 20 mg PO DAILY 08/19/20 [History] Sertraline [Zoloft] 50 mg PO DAILY 08/19/20 [History] Tamsulosin HCl [Flomax] 0.4 mg PO BEDTIME 08/19/20 [History] Cefdinir [Omnicef] 300 mg PO BEDTIME 7 Days #7 cap 08/24/20 [Rx] Gabapentin [Neurontin] 200 mg PO BEDTIME 30 Days #30 cap 08/24/20 [Rx] Saccharomyces Boulardii [Florastor] 250 mg PO BID 7 Days #14 cap 08/24/20 [Rx] metroNIDAZOLE [Flagyl] 500 mg PO TID 7 Days #21 tablet 08/24/20 [Rx] Patient Handouts: Fever, Adult, Gabapentin capsules or tablets, Cefdinir Capsu les, Urinary Tract Infection, Adult, You've Been Prescribed an Antibiotic in the Hospital for an Infection - [facility], Metronidazole tablets or capsules, Probiotics Forms: ED Department Discharge Referrals: Adam Clemons PA-C [Ordering Only Provider] - - Discharge Summary/Plan Comment DC Time >30 min.: Yes - General Info Date of Service: 08/24/20 Subjective Update: Angel is feeling well, diarrhea he feels is improving. No pain in his feet. No abdominal pain. No coughing or shortness of breath. No fevers. PT/OT did not recommend outpatient PT/OT but advised to use his walker more. Functional Status: Reports: Tolerating Diet, Ambulating, Urinating. Denies: New Symptoms - Patient Data Vitals - Most Recent: Last Vital Signs Temp 97.4 F 08/24/20 07:30 Pulse 61 08/24/20 07:30 Resp 20 08/24/20 07:30 BP 156/71 H 08/24/20 08:40 Pulse Ox 98 08/24/20 07:30 Weight - Most Recent: 185 lb 0.32 oz Lab Results - Last 24 hrs: Laboratory Results - last 24 hr 08/23/20 08/23/20 08/24/20 Range/Units 17:15 20:43 05:56 WBC (3.2-10.1) x10-3/uL RBC (3.90-5.90) x10(6)uL Hgb (12.9-17.7) g/dL Hct (38.3-50.1) % MCV (80.8-98.7) fL MCH (27.0-33.3) pg MCHC (28.7-35.3) g/dL RDW (12.4-15.0) % Plt Count (117-477) x10(3)uL MPV (6.7-11.0) fL Add Manual Diff Neutrophils % (Manual) (46-82) % Lymphocytes % (Manual) (13-37) % Monocytes % (Manual) (4-12) % Sodium (135-145) mmol/L Potassium (3.5-5.3) mmol/L Chloride (100-110) mmol/L Carbon Dioxide (21-32) mmol/L BUN (7-18) mg/dL Creatinine (0.70-1.30) mg/dL Est Cr Clr Drug Dosing mL/min Estimated GFR (MDRD) (>60) BUN/Creatinine Ratio (9-20) Glucose (80-116) mg/dL POC Glucose 73 L 108 112 (80-116) mg/dL Calcium (8.6-10.2) mg/dL 08/24/20 08/24/20 08/24/20 Range/Units 06:10 06:10 11:16 WBC 18.8 H (3.2-10.1) x10-3/uL RBC 4.23 (3.90-5.90) x10(6)uL Hgb 12.8 L (12.9-17.7) g/dL Hct 40.3 (38.3-50.1) % MCV 95.3 (80.8-98.7) fL MCH 30.4 (27.0-33.3) pg MCHC 31.9 (28.7-35.3) g/dL RDW 14.0 (12.4-15.0) % Plt Count 255 (117-477) x10(3)uL MPV 9.6 (6.7-11.0) fL Add Manual Diff Yes Neutrophils % (Manual) 76 (46-82) % Lymphocytes % (Manual) 19 (13-37) % Monocytes % (Manual) 5 (4-12) % Sodium 149 H (135-145) mmol/L Potassium 4.0 (3.5-5.3) mmol/L Chloride 115 H (100-110) mmol/L Carbon Dioxide 23 (21-32) mmol/L BUN 57 H (7-18) mg/dL Creatinine 2.4 H* (0.70-1.30) mg/dL Est Cr Clr Drug Dosing 19.19 mL/min Estimated GFR (MDRD) 26 L (>60) BUN/Creatinine Ratio 23.8 H (9-20) Glucose 133 H (80-116) mg/dL POC Glucose 95 (80-116) mg/dL Calcium 8.6 (8.6-10.2) mg/dL CARRIE Results - Last 24 hrs: Microbiology 08/20/20 00:52 Campylobacter Culture - Preliminary Stool / Feces Escherichia coli Shiga Toxins EIA - Preliminary 08/19/20 19:20 Aerobic Blood Culture - Preliminary Blood - Venous NO GROWTH AFTER 4 DAYS Anaerobic Blood Culture - Preliminary NO GROWTH AFTER 4 DAYS 08/19/20 19:26 Aerobic Blood Culture - Preliminary Blood - Venous - Lab Draw NO GROWTH AFTER 4 DAYS Anaerobic Blood Culture - Preliminary NO GROWTH AFTER 4 DAYS Med Orders - Current: Current Medications Discontinued Medications Acetaminophen (Acetaminophen 500 Mg Tab) 1,000 mg PO ONETIME ONE Stop: 08/19/20 19:21 Last Admin: 08/19/20 19:27 Dose: 1,000 mg Documented by: Acetaminophen (Acetaminophen 325 Mg Tab) 650 mg PO Q4H PRN PRN Reason: Pain (Mild 1-3)/fever Last Admin: 08/22/20 20:03 Dose: 650 mg Documented by: Hydrocodone Bitart/Acetaminophen (Acetaminophen/Hydrocodone 325-5 Mg Tab) 1 tab PO Q4H PRN PRN Reason: Pain (moderate 4-6) Albuterol (Albuterol 8 Gm Inhaler) 0 gm INH DAILY [facility] Last Admin: 08/24/20 08:35 Dose: 2 puff Documented by: Albuterol (Albuterol 8 Gm Inhaler) 0 gm INH Q6H PRN PRN Reason: Shortness of Breath Albuterol (Albuterol 8 Gm Inhaler) 0 gm INH Q6H PRN PRN Reason: SHORTNESS OF BREATH Last Admin: 08/23/20 00:41 Dose: 2 puff Documented by: Atorvastatin Calcium (Atorvastatin 20 Mg Tab) 20 mg PO BEDTIME [facility] Last Admin: 08/23/20 21:46 Dose: 20 mg Documented by: Cefdinir (Cefdinir 300 Mg Cap) 300 mg PO BEDTIME [facility] Last Admin: 08/23/20 21:47 Dose: 300 mg Documented by: Ceftriaxone Sodium (Ceftriaxone 1 Gm Vial) 1 gm IVPUSH Q24H [facility] Last Admin: 08/22/20 19:58 Dose: 1 gm Documented by: Ceftriaxone Sodium (Ceftriaxone 1 Gm Vial) 1 gm IVPUSH NOW STA Stop: 08/19/20 20:55 Last Admin: 08/19/20 20:57 Dose: 1 gm Documented by: Dexamethasone (Dexamethasone 4 Mg Tab) 4 mg PO DAILY [facility] Stop: 08/23/20 09:46 Last Admin: 08/23/20 10:48 Dose: 4 mg Documented by: Enoxaparin Sodium (Enoxaparin 30 Mg/0.3 Ml Syringe) 30 mg SUBCUT Q24H [facility] Last Admin: 08/19/20 21:49 Dose: 30 mg Documented by: Febuxostat (Febuxostat 40 Mg Tab) 40 mg PO BEDTIME [facility] Last Admin: 08/23/20 21:47 Dose: 40 mg Documented by: Finasteride (Finasteride 5 Mg Tab) 5 mg PO BEDTIME [facility] Last Admin: 08/23/20 21:49 Dose: 5 mg Documented by: Fluticasone Propionate (Fluticasone Propionate Nasal Pope 16 Gm Bottle) 0 gm NASBOTH BID [facility] Last Admin: 08/24/20 08:41 Dose: 2 spray Documented by: Gabapentin (Gabapentin 300 Mg Cap) 300 mg PO ONETIME ONE Stop: 08/19/20 19:46 Last Admin: 08/19/20 20:14 Dose: 300 mg Documented by: Gabapentin (Gabapentin 100 Mg Cap) 200 mg PO BEDTIME [facility] Last Admin: 08/23/20 21:46 Dose: 200 mg Documented by: Gabapentin (Gabapentin 100 Mg Cap) 200 mg PO BID [facility] Stop: 08/22/20 21:01 Last Admin: 08/22/20 20:03 Dose: 200 mg Documented by: Glipizide (Glipizide 5 Mg Tab) 5 mg PO ACBREAKFAST [facility] Last Admin: 08/20/20 08:31 Dose: 5 mg Documented by: Glipizide (Glipizide 5 Mg Tab) 5 mg PO ACBREAKFAST [facility] Last Admin: 08/24/20 06:34 Dose: 5 mg Documented by: Heparin Sodium (Porcine) (Heparin Sodium 5,000 Units/Ml Vial) 5,000 units SUBCUT Q12H [facility] Last Admin: 08/24/20 08:42 Dose: 5,000 units Documented by: Sodium Chloride (Normal Saline) 1,000 mls @ 999 mls/hr IV ASDIRECTED [facility] Stop: 08/19/20 20:45 Last Admin: 08/19/20 20:05 Dose: 999 mls/hr Documented by: Sodium Chloride (Normal Saline) 1,000 mls @ 75 mls/hr IV ASDIRECTED [facility] Last Admin: 08/21/20 20:04 Dose: 75 mls/hr Documented by: Metronidazole 500 mg/ Premix 100 mls @ 100 mls/hr IV Q8H [facility] Last Admin: 08/23/20 04:33 Dose: 100 mls/hr Documented by: Ketorolac Tromethamine (Ketorolac 30 Mg/Ml Sdv) 30 mg IVPUSH ONETIME ONE Stop: 08/19/20 19:46 Last Admin: 08/19/20 20:19 Dose: Not Given Documented by: Levothyroxine Sodium (Levothyroxine 100 Mcg Tab) 100 mcg PO ACBREAKFAST [facility] Last Admin: 08/24/20 06:33 Dose: 100 mcg Documented by: Loperamide HCl (Loperamide 2 Mg Cap) 2 mg PO ONETIME ONE Stop: 08/20/20 11:18 Last Admin: 08/20/20 11:35 Dose: 2 mg Documented by: Losartan Potassium (Losartan 25 Mg Tab) 25 mg PO DAILY [facility] Last Admin: 08/24/20 08:40 Dose: 25 mg Documented by: Metronidazole (Metronidazole 500 Mg Tab) 500 mg PO TID [facility] Last Admin: 08/24/20 08:40 Dose: 500 mg Documented by: Montelukast Sodium (Montelukast 10 Mg Tab) 10 mg PO BEDTIME [facility] Last Admin: 08/23/20 21:48 Dose: 10 mg Documented by: Morphine Sulfate (Morphine 2 Mg/Ml Syringe) 2 mg IVPUSH NOW STA Stop: 08/19/20 19:54 Last Admin: 08/19/20 20:16 Dose: 2 mg Documented by: Non-Formulary Medication (Balderas Concentrate Capsule) 1 cap PO DAILY [facility] Ondansetron HCl (Ondansetron 4 Mg/2 Ml Sdv) 4 mg IV Q4H PRN PRN Reason: Nausea/Vomiting Pantoprazole Sodium (Pantoprazole 40 Mg Tab.Cr) 40 mg PO ACBREAKFAST [facility] Last Admin: 08/24/20 06:33 Dose: 40 mg Documented by: Saccharomyces Boulardii (Saccharomyces Boulardii (Probiotic) 250 Mg Cap) 250 mg PO BID [facility] Last Admin: 08/24/20 08:41 Dose: 250 mg Documented by: Saccharomyces Boulardii (Saccharomyces Boulardii (Probiotic) 250 Mg Cap) 500 mg PO BID [facility] Senna/Docusate Sodium (Docusate Sodium/Sennosides 50-8.6 Mg Tab) 1 tab PO BID PRN PRN Reason: Constipation Sertraline HCl (Sertraline 50 Mg Tab) 50 mg PO DAILY [facility] Last Admin: 08/24/20 08:44 Dose: 50 mg Documented by: Sodium Chloride (Sodium Chloride 0.9% 10 Ml Syringe) 10 ml FLUSH ASDIRECTED PRN PRN Reason: Keep Vein Open Last Admin: 08/23/20 13:55 Dose: 10 ml Documented by: Tamsulosin HCl (Tamsulosin 0.4 Mg Cap.Er) 0.4 mg PO BEDTIME [facility] Last Admin: 08/23/20 21:44 Dose: 0.4 mg Documented by: Tiotropium Niotaze (Tiotropium Niotaze 4 Gm Inhalation Pope (2.5mcg/1 Dose; 10 Doses)) 2 gm INH DAILY [facility] Last Admin: 08/24/20 08:35 Dose: 2 puff Documented by: - Exam General: Reports: Alert, Oriented, Cooperative, No Acute Distress Lungs: Reports: Clear to Auscultation, Normal Respiratory Effort Cardiovascular: Reports: Regular Rate, Regular Rhythm GI/Abdominal Exam: Normal Bowel Sounds, Soft, Non-Tender, No Distention, Other (Ventral hernia reducible, NT) (Male) Exam: Deferred Rectal (Males) Exam: Deferred Extremities: Pedal Edema (trace BLE) *Q Meaningful Use (DIS) - VTE *Q VTE Mechanical Contraindications *Q: At Risk for Falls
== END 2020-08-24 12:45 | disposition home health service (06) | DRG 872 ==
LOC: FB.ED 19:04 → FB.MS 20:27
PROVIDERS: ADMIT Emergency Medicine; ATTEND Family Medicine
DX: A41.9 Sepsis, unspecified organism (principal); N39.0 Urinary tract infection, site not specified; N17.9 Acute kidney failure, unspecified; N30.00 Acute cystitis without hematuria; K52.9 Noninfective gastroenteritis and colitis, unspecified; W19.XXXA Unspecified fall, initial encounter; N18.9 Chronic kidney disease, unspecified; J30.9 Allergic rhinitis, unspecified; E11.22 Type 2 diabetes mellitus with diabetic chronic kidney disease; E11.42 Type 2 diabetes mellitus with diabetic polyneuropathy; E86.0 Dehydration; K43.9 Ventral hernia without obstruction or gangrene; F41.9 Anxiety disorder, unspecified; F32.9 Major depressive disorder, single episode, unspecified; H91.90 Unspecified hearing loss, unspecified ear; E78.00 Pure hypercholesterolemia, unspecified; Z88.8 Allergy status to other drugs, medicaments and biological substances; I12.9 Hypertensive chronic kidney disease with stage 1 through stage 4 chronic kidney disease, or unspecified chronic kidney disease; M19.90 Unspecified osteoarthritis, unspecified site; M10.9 Gout, unspecified; E66.9 Obesity, unspecified; Z20.822 Contact with and (suspected) exposure to COVID-19; E05.90 Thyrotoxicosis, unspecified without thyrotoxic crisis or storm; Z79.899 Other long term (current) drug therapy; Z79.890 Hormone replacement therapy; Z79.84 Long term (current) use of oral hypoglycemic drugs; Z79.82 Long term (current) use of aspirin; Z85.828 Personal history of other malignant neoplasm of skin; Z90.49 Acquired absence of other specified parts of digestive tract; Z68.31 Body mass index [BMI] 31.0-31.9, adult; R65.20 Severe sepsis without septic shock
CPT/HCPCS: 36415; 71045; 80053; 81001; 83605; 85025; 86140; 87040 ×2; 87086; 87088; 96374; 99284; 99285; A9270 ×2; J0696; J2270; J7030; U0002; 74176; 80048; 82947; 87045; 87046; 87177; 87209; 87230; 87427; 97166-GO; 97530-GO; 97535-GO; J1644; J1650; J3490; J8540